=== PATIENT | female | born 1970 | race Caucasian/White ===

== ENCOUNTER → 2020-08-22 16:24 | Outpatient (CLI) | payer BC, SELFPAY ==
--- NOTE | ~2020-08-22 | XR_ITS ---
XR wrist LT min 3V 08/22/2020 17:24 Indication: Left wrist pain Procedure: 4 views left wrist Comparison: No prior studies for comparison. Findings: No fracture, subluxation or dislocation. No erosive changes. There is anatomic alignment. S caphoid intact. No focal soft tissue abnormality. No foreign bodies. Impression: 1: No significant bone or joint abnormality. Reviewed, dictated and finalized at location A. Impression: 1: No significant bone or joint abnormality.
== END ==
PROVIDERS: PCP Family Medicine; Visit Provider Family Medicine
DX: M25.352 Other instability, left hip (principal)
CPT/HCPCS: 73110

== ENCOUNTER 2021-03-25 10:33 | Outpatient (RCR) | payer BC, SELFPAY ==
[2021-03-25 12:31] VITALS: BP 124/78; PULSE 92; RESP 20; TEMP 35.9; O2SAT 98
[2021-03-25] MEDS: ACETAMINOPHEN 325 MG TABLET 650 MG PO (12:33)
[2021-03-25] MEDS: diphenhydrAMINE HCl CAP 25 MG CAPSULE PO (12:34)
[2021-03-25] MEDS: FAMOTIDINE 20 MG TABLET PO (12:34)
[2021-03-25 13:53] VITALS: BP 134/80; PULSE 82; O2SAT 98
== END 2021-03-25 15:26 ==
LOC: AMCINF 10:33
PROVIDERS: PCP Family Medicine; Visit Provider Internal Medicine Hematology & Oncology
DX: U07.1 COVID-19 (principal); I10 Essential (primary) hypertension
CPT/HCPCS: A9270; M0247; Q0247

== ENCOUNTER 2021-04-23 14:42 | Emergency (ER) | payer BC, SELFPAY ==
[2021-04-23 14:50] VITALS: BP 142/84; PULSE 98; RESP 16; TEMP 36.3; O2SAT 99
--- NOTE | 2021-04-23 14:59 | ED.URI ---
HPI - URI/Sore Throat General Chief Complaint: Upper Respiratory Infection Stated Complaint: uri Time Seen by Provider: 04/23/21 15:00 Source: patient Mode of arrival: ambulatory Limitations: no limitations History of Present Illness HPI Narrative: 51 yo F presents with c/o nasal congestion, sinus pressure, dry cough, PND, low grade temp for 3 days. Using Afrin. Takes Annalisa daily. No SOB/CP. Has had influenza exposure. All systems reviewed and negative except as noted above. Related Data Home Medications Medication Instructions Recorded Confirmed leflunomide 20 mg tablet 20 mg PO DAILY 01/26/19 03/25/21 upadacitinib 15 mg tablet,extended 15 mg PO DAILY 01/26/19 03/25/21 release 24 hr Allergies Allergy/AdvReac Type Severity Reaction Status Date / Time Corticosteroids Allergy Unknown redness/swe Verified 04/23/21 15:05 (Glucocorticoids) lling gabapentin Allergy Unknown upset Verified 04/23/21 15:05 stomach latex Allergy Unknown rash/swelli Verified 04/23/21 15:05 ng loratadine [From Claritin] Allergy Unknown unknown Verified 04/23/21 15:05 Review of Systems Review of Systems: CONSTITUTIONAL: Reports fever, chills, or sweats. EYES: Denies visual changes, redness, or discharge. ENT: Reports rhinorrhea, congestion, sore throat. Denies otalgia. CARDIOVASCULAR: Denies chest pain, palpitations, or edema. RESPIRATORY: Reports cough. Denies dyspnea. GASTROINTESTINAL: Denies abdominal pain, nausea, vomiting, or diarrhea. GENITOURINARY: Denies dysuria or hematuria. SKIN: Denies rash or itching. MUSCULOSKELETAL: Denies back pain, joint pain, or myalgia. NEUROLOGIC: Denies headache, numbness, or weakness. PSYCHIATRIC: Denies anxiety or depression. All other systems reviewed are negative, except as documented in HPI. [facility] Past Medical History Medical History Large breasts Obesity (BMI 35.0-39.9 without comorbidity) Surgical History Surgical History History of tubal ligation Family History Family History Grandparent Diabetes mellitus Hypertension Family history of elevated blood lipids Cerebrovascular accident Family history of renal failure Mother Depression Hypertension Family history of rheumatoid arthritis Father Hypertension Family history of elevated blood lipids Family history of malignant melanoma Social History Social History Alcohol intake: never Comments At time of signature, agree with nursing past medical, surgical, social and family history. There is no relevant family history pertinent to the presenting complaint. Exam Narrative: GENERAL: This is a well-nourished, well-developed patient, in no apparent distress. HEAD: normocephalic, atraumatic. EYES: PERRL. Sclera clear/white. Vision is grossly intact. EARS: External ears normal, auditory canals clear and without drainage, TMs normal without perforation. Hearing grossly intact. NOSE: External nose normal. Clear nasal drainage, mild congestion, erythema to bilateral naris. THROAT: Mucous membranes moist, erythema to posterior pharynx with postnasal drainage. NECK: Neck supple, non-tender without lymphadenopathy, masses or thyromegaly. CARDIOVASCULAR: Regular rate and rhythm without murmurs, gallops, or rubs. RESPIRATORY: Clear to auscultation. Breath sounds equal bilaterally. No wheezes, rales, or rhonchi. GASTROINTESTINAL: Abdomen soft, non-tender, nondistended. Bowel sounds are active. No hepato-splenomegaly, or palpable masses. No guarding. SKIN: warm, Dry, intact with no suspicious lesions or rash, good texture and turgor. NEURO: awake, alert, and oriented to person, place and time. There were no obvious focal neurologic abnormalities. EXTREMITIES: No joint tenderness, effusion, or e
== END 2021-04-23 15:20 | disposition home or self-care (01) ==
PROVIDERS: Emergency Provider Nurse Practitioner Family; PCP Family Medicine
DX: J06.9 Acute upper respiratory infection, unspecified (principal); E66.9 Obesity, unspecified; Z68.37 Body mass index [BMI] 37.0-37.9, adult
CPT/HCPCS: 87804; 99213; G0463

== ENCOUNTER 2022-03-03 11:18 | Outpatient (CLI) | payer BC, SELFPAY ==
[2022-03-03 20:31] LABS: Thyroid Stimulating Hormone 0.442 uIU/mL (0.465-4.680)
== END 2022-03-03 11:19 | disposition home or self-care (01) ==
LOC: ANHGOSHLAB 11:20
PROVIDERS: PCP Family Medicine; Visit Provider Family Medicine
DX: E03.9 Hypothyroidism, unspecified (principal); E78.00 Pure hypercholesterolemia, unspecified
CPT/HCPCS: 36415; 84443

== ENCOUNTER → 2022-04-14 12:19 | Outpatient (CLI) | payer BC, SELFPAY ==
--- NOTE | ~2022-04-14 | XR_ITS ---
EXAMINATION: XR chest 2V 04/14/2022 12:43 INDICATION: Chronic cough PROCEDURE: 2 view chest COMPARISON: 08/18/2007 FINDINGS: The lungs are clear. The cardiomediastinal silhouette is within normal limits. There are no pleural effusions. There is no pneumothorax suspected. IMPRESSION: 1: NO ACUTE CARDIOPULMONARY DISEASE. Reviewed, dictated and finalized at location B. [employer]
== END ==
PROVIDERS: PCP Family Medicine; Visit Provider Family Medicine
DX: R05.3 Chronic cough (principal)
CPT/HCPCS: 71046

== ENCOUNTER → 2022-06-11 16:18 | Outpatient (CLI) | payer BC, SELFPAY ==
--- NOTE | ~2022-06-11 | MM_ITS ---
EXAMINATION: MM screening gianna BI w marcos HISTORY: Screening mammogram TECHNIQUE: Craniocaudal and mediolateral oblique 3-D tomosynthesis images were obtained and synthetic 2-D images were generated. CAD analysis was submitted and interpreted. COMPARISON: 09/23/2018 bilateral screening mammogram examinations BREAST PARENCHYMAL COMPOSITION: There are scattered areas of fibroglandular density. FINDINGS: There is no evidence of suspicious mass, calcification, or architectural distortion to sugg est malignancy in either breast. There has been no suspicious interval change. IMPRESSION: 1. No mammographic evidence of malignancy. 2. Recommend routine screening mammography in one year. BI-RADS Category 1: Negative Reviewed, dictated and finalized at location A.
== END ==
PROVIDERS: PCP Family Medicine; Visit Provider Family Medicine
DX: Z12.31 Encounter for screening mammogram for malignant neoplasm of breast (principal)
CPT/HCPCS: 77063; 77067

== ENCOUNTER 2022-07-25 12:40 | Outpatient (CLI) | payer BC, SELFPAY ==
--- NOTE | 2022-07-25 14:48 | ECG_ITS ---
Measurements Intervals [place] Rate: 82 P: 36 [place]: 146 QRS: 21 QRSD: 104 T: 22 QT: 389 QTc: 455 Interpretive Statements SINUS RHYTHM LOW QRS VOLTAGE IN PRECORDIAL LEADS [QRS DEFLECTION < 1.0 mV IN CHEST LEADS] INCOMPLETE RIGHT BUNDLE BRANCH BLOCK [90+ ms QRS DURATION, TERMINAL R IN V1/V2, 40+ ms S IN I/aVL/V4/V5/V6] NO PREVIOUS ECG AVAILABLE FOR COMPARISON Electronically Signed On 07-26-2022 8:55:40 CDT by Antonette Adkins M.D.
== END 2022-07-25 12:41 | disposition home or self-care (01) ==
PROVIDERS: PCP Family Medicine; Visit Provider Surgery Plastic and Reconstructive Surgery
DX: E78.00 Pure hypercholesterolemia, unspecified (principal); I45.10 Unspecified right bundle-branch block
CPT/HCPCS: 93005

== ENCOUNTER 2022-07-29 00:13 | Day surgery (SDC) | payer BC, SELFPAY ==
[2022-07-25 10:12] VITALS: BMI 37.4
--- NOTE | 2022-07-25 10:24 | PC.NURSE ---
Report to the Outpatient Waiting Room, entrance under the green pavilion located off [facility], at time 9:30 on date 07/29/22. Planned Procedure Time: 11:30. Time changes happen often and if your time is changed the preop area will call you the afternoon before. - You and your visitor will be asked to self-screen and do not enter if you have any COVID symptoms. - A mask is optional within the hospital at this time. Patients may have clear liquids (water, carbonated beverages, clear teas, apple juice) until 3 hours prior to surgery with a maximum of 20 ounces. - No food from midnight until time of surgery Take the following medications with a SIP of water the morning of surgery: LEVOTHYROXINE, PAIN PILL IF NEEDED DO NOT STOP ANY OF YOUR OTHER PRESCRIPTION MEDICATIONS PRIOR TO SURGERY ?EXCEPT THE FOLLOWING Medications to discontinue per physician: VITAMINS/SUPPLEMENTS Date to take last dose: 07/25/22 Please no make-up, nail estonian, hairspray, perfume, deodorant, or body powder the day of surgery. No jewelry (including any body piercings) or valuables the day of surgery, leave them at home. Please take a shower or bath the night before, or the morning of, surgery with an antibacterial soap. Wear comfortable, loose fitting clothing. - Jewelry must be removed prior to entering the operating room. Rings and piercings that are not removed may be cut off. - The hospital will not accept responsibility for valuables. - Please leave all valuables, including medications, at home the day of surgery. If you are going home after surgery, a licensed straddle bug driver must drive you home. - NO public transportation without another adult if you receive anesthesia. - We recommend that an adult stay with you for 24 hours following discharge. - We also recommend that you do not drive, make important decision, drink alcoholic beverages, or take any drugs that were not prescribed by your health care provider for at least 24 hours after your discharge time. Follow any additional instructions given to you from your surgeon. If you or anyone in your household have experienced Covid symptoms in the past week, please notify your surgeon or the nurse liaison at the phone number below for possible testing. Telephone instructions given to PT - PAOLA ABDULLAHI and asked if any additional questions and then verbalized understanding. Patient advised to call surgeon office or pre surgery nurse liaison [phone] if any additional questions.
[2022-07-29] VITALS (10 sets, daily range): BP systolic 121–159; BP diastolic 80–104; PULSE 80–104; RESP 8–16; TEMP 36.5–36.9; O2SAT 92–99
--- NOTE | 2022-07-29 08:16 | WPDANESEPPF ---
Anes - Initial Pre Proc Eval Procedure: Operation Date: 07/29/22 11:30 Proposed Procedures p Bilateral Breast Reduction - Matty Lomas MD Date/Time: 07/29/22 08:16 Surgeon: Matty Lomas MD Pre Op Diagnosis: macromastia Patient Data Age: 52 Gender: F Height: 1.59 m Weight: 94.35 kg Allergies Allergy/AdvReac Type Severity Reaction Status Date / Time Corticosteroids Allergy Unknown redness/swe Verified 07/29/22 10:34 (Glucocorticoids) lling gabapentin Allergy Unknown upset Verified 07/29/22 10:34 stomach latex Allergy Unknown rash/swelli Verified 07/29/22 10:34 ng loratadine [From Claritin] Allergy Unknown unknown Verified 07/29/22 10:34 nickel Allergy Swelling Verified 07/29/22 10:34 Home Medications Medication Instructions Recorded Confirmed Type leflunomide 20 mg tablet 20 mg PO DAILY 01/26/19 07/25/22 History upadacitinib 15 mg tablet,extended 15 mg PO DAILY 01/26/19 07/25/22 History release 24 hr (Rinvoq) esomeprazole magnesium 40 mg See Rx Instructions .Route 08/29/21 07/25/22 Rx capsule,delayed release .COMPLEX #180 caps rosuvastatin 5 mg tablet See Rx Instructions .Route 01/02/22 07/25/22 Rx .COMPLEX #90 tabs alendronate 70 mg tablet 70 mg PO WEEKLY 03/03/22 07/25/22 History diclofenac sodium 75 mg See Rx Instructions .Route 03/20/22 07/25/22 Rx tablet,delayed release .COMPLEX #180 tabs hydrocodone 5 mg-acetaminophen 325 1 tablet PO Q4-6H PRN pain #40 tabs 06/11/22 07/25/22 Rx mg tablet hydrocodone 5 mg-acetaminophen 325 1 tablet PO Q4-6H PRN pain #40 tabs 06/11/22 07/25/22 Rx mg tablet hydrocodone 5 mg-acetaminophen 325 1 tablet PO Q6H PRN pain #40 tabs 06/11/22 07/25/22 Rx mg tablet levothyroxine 125 mcg tablet 125 mcg PO DAILY #90 tabs 07/15/22 07/25/22 Rx (Synthroid) Patient hx anesthesia problems: none Family hx anesthesia problems: none Results Review: All pre-operative results and documents have been reviewed as part of the pre-operative evaluation. [facility] Past Medical History Medical History (Updated 07/29/22 @ 08:17 by Hang Bueno DO) Chronic, continuous use of opioids Rochelle-Danlos disease Hypothyroidism (acquired) Large breasts Obesity (BMI 35.0-39.9 without comorbidity) Personal history of tobacco use Psoriasis Pure hypercholesterolemia Rheumatoid arthritis of multiple sites with negative rheumatoid factor Surgical History Surgical History (Updated 07/29/22 @ 08:17 by Hang Bueno DO) History of hysterectomy History of knee surgery 3x laparoscopic History of thyroidectomy History of tubal ligation Family History Family History Grandparent Diabetes mellitus Hypertension Family history of elevated blood lipids Cerebrovascular accident Family history of renal failure Mother Depression Hypertension Family history of rheumatoid arthritis Father Hypertension Family history of elevated blood lipids Family history of malignant melanoma Other History of tubal ligation Social History Social History (Updated 05/21/22 @ 08:15 by Trisha Peguero CMA) Social History: Caffeine- coffee daily Smoking packs per day: 1 Smoking cigarettes per day: 20.0 Years smoked: 23 Smoking pack-years: 23.00 Smoking status: Former smoker Tobacco type: cigarettes Smoking end date: 02/09/19 Alcohol intake: never Substance use: never Substance use type: does not use Lack of Transportation: No Lack of Food: Never True Current Housing: I Have Housing Concerned About Future Housing: No Difficulty Paying Gas/Electric Bills: No Difficulty Paying for Meds: No Currently Unemployed: No Education: Master's Degree or Higher Difficulty w/ Childcare or Family Care: No Living arrangements: with family Spiritual care concerns: No Anes - Eval Final PreProcedure Day of Procedure 07/29/22 08:16 P
[2022-07-29 10:17] LABS: Urine Cotinine NEGATIVE
[2022-07-29] MEDS: LACTATED RINGERS 1,000 ML 30 ML IV CONT ×2 (10:23→15:23)
[2022-07-29] MEDS: ACETAMINOPHEN 500 MG TABLET 1000 MG PO (10:24)
--- NOTE | 2022-07-29 11:54 | P.OP_ITS ---
Procedure Note - Detailed Date of Procedure 07/29/22 Pre-op Diagnosis macromastia Post-op Diagnosis Same Procedure Performed Bilateral reduction mammaplasty Surgeon Matty Lomas MD Anesthesia General Findings Inverted T Superior pedicle Tissue removed: Right - 850.8 grams Left - 814.5 grams Lipoaspirate: 350cc Description of Procedure She is here today for bilateral breast reduction. Previously and again today the risks, benefits, alternatives were discussed in extensive detail. I wanted her to be very realistic about the risks involved as well as expectations. She understands we can never guarantee final size. She understands she will still have lateral breast fullness. We discussed aftercare and what to monitor for. She understands we can never guarantee final breast size and there will always be asymmetry. I was very upfront and honest about the risks of sensation change and even nipple loss (). Made sure answered all of her questions to her satisfaction today and consent was obtained. She was marked in the preoperative holding area with their verification. The patient was taken to the operating room placed supine on the operating table. Anesthesia was provided by anesthesiology. She was prepped and draped in a standard sterile fashion. A surgical time-out was taken. Stab incisions were made and I tumessed with a tumescent solution. I marked out the nipple-areolar complex at 42 mm. I then de-epithelialized the pedicle. The pedicle was well left well more than 2 cm in thickness. I then removed the inferior portion of the breast as well as the central keel to get shape based on preoperative planning. At this point copiously irrigated with saline solution and verified a strict hemostasis. I reapproximated the pillars using a 2-0 PDS. I tailor tacked the breast into place with roberto. She was placed in a sitting position. I verified the nipple-areolar complex position based on preoperative markings, intraoperative measurements, and observation which were in full agreement. Suction lipectomy was completed laterally bilateral for counter based on S.A.F.E. technique utilizing a 4mm basket cannula. This was based on pre- operative planning and intraoperative evaluation. The nipple-areolar complex was marked at 42 mm in size. I then placed supine and de-epithelialized this. Nipple-areolar complex was inset with 3-0 Monocryl. I closed IMF deep with 1 strattafix. I closed the vertical incision with 3-0 Monocryl in the IMF with 3-0 stratafix. Then everything was closed using a running subcuticular 4-0 Monocryl followed by Steri-Strips. A dressing was placed followed by surgical bra. Patient was awoke and taken to PACU without difficulty. All instrument sponge counts were correct at the end of the case. Estimated Blood Loss 75 Drains No Packing No Pathology Yes (Bilateral breast tissue) Complications No immediate complications Condition Stable Disposition PACU
--- NOTE | 2022-07-29 11:54 | WPDHPUPDATE1 ---
History and Physical Update Update Date/Time: 07/29/22 11:54 History and Physical has been reviewed, including an updated exam of the patient. There are NO changes in the patient's condition. Risks, benefits, and alternatives have been discussed and questions answered. Patient agrees to proceed with procedure.
[2022-07-29] MEDS: TRANEXAMIC ACID 1,000MG/ISO100 1,000 MG/100 ML BAG 200 MG IVPB (12:30)
[2022-07-29] MEDS: ceFAZolin 2 GM/D5W 50 ML 2 GM/50 ML BAG IVPB (12:45)
[2022-07-29] MEDS: LACTATED RINGERS IRRIG 1,000 ML, LIDOCAINE HCL 1% LOCAL INJ 50 ML, EPINEPHrine HCL INJ ... INFILTRATE (13:24)
[2022-07-29] MEDS: fentaNYL CITRATE INJ (*CRX) 100 MCG/2 ML VIAL 25 MCG IV PUSH ×3 (15:42→17:15)
[2022-07-29] MEDS: oxyCODONE HCL (*CRX) 5 MG TAB IR PO (16:44)
--- NOTE | 2022-07-29 18:39 | SUR.PHASEII ---
1830 PT MEETS DISCHARGE CRITERIA AND IS WAITING FOR HER RIDE
== END 2022-07-29 18:41 | disposition home or self-care (01) ==
PROVIDERS: PCP Family Medicine; Visit Provider Surgery Plastic and Reconstructive Surgery
PROC: 0HBV0ZZ Excision of Bilateral Breast, Open Approach (ICD-10-PCS; CPT 19318; principal; 2022-07-29 11:30)
DX: N62 Hypertrophy of breast (principal); Q79.60 Ehlers-Danlos syndrome, unspecified; E03.9 Hypothyroidism, unspecified; E78.00 Pure hypercholesterolemia, unspecified; M06.09 Rheumatoid arthritis without rheumatoid factor, multiple sites; E66.9 Obesity, unspecified; Z68.37 Body mass index [BMI] 37.0-37.9, adult; Z87.891 Personal history of nicotine dependence; Z79.891 Long term (current) use of opiate analgesic
CPT/HCPCS: 19318; 80307; 88305; A9270; J0171; J0330; J0690; J1170; J2250; J2405; J2704; J3010; J7120

== ENCOUNTER 2023-05-14 14:54 | Outpatient (CLI) | payer BC, SELFPAY ==
[2023-05-14 19:18] LABS: Alanine Aminotransferase 27 U/L (6-35); Albumin Level 4.3 g/dL (3.5-5.1); Alkaline Phosphatase 71 U/L (38-126); Anion Gap 3 mmol/L (4-12); Aspartate Amino Transferase 45 U/L (14-36); Bilirubin,Total 0.6 mg/dL (0.2-1.3); Blood Urea Nitrogen 10 mg/dL (7-17); Carbon Dioxide 27 mmol/L (22-30); Chloride 108 mmol/L (98-107); Cholesterol 222 mg/dL (0-200); Estimated Glomerular Filt Rate > 60; Glucose 89 mg/dL (65-110); HDL Direct 82 mg/dL; Potassium 4.3 mmol/L (3.4-5.0); Sodium 138 mmol/L (137-145); Triglycerides 214 mg/dL (<150)
[2023-05-14 19:30] LABS: LDL Cholesterol Direct 106 mg/dL
[2023-05-14 19:54] LABS: Hemoglobin A1C 5.7 % (<5.7)
== END 2023-05-14 14:55 | disposition home or self-care (01) ==
LOC: ANHGOSHLAB 14:55
PROVIDERS: PCP Family Medicine; Visit Provider Family Medicine
DX: E03.9 Hypothyroidism, unspecified (principal); E78.5 Hyperlipidemia, unspecified
CPT/HCPCS: 36415; 80053; 80061; 83036; 84443

== ENCOUNTER 2024-05-25 11:33 | Outpatient (CLI) | payer OTHER, SELFPAY ==
--- OUTSIDE RECORDS SUMMARY | 2024-05-25 13:14 | XMS_ITS | Clinical Summary ---
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 Name Role Phone Lance Nielson MD Primary Care Provider [phone] Allergies Active Allergy Reactions Criticality Noted Date Comments Corticosteroids (Glucocorticoids) Agitation Low 11/24/2019 Cortisone Flushing (skin),Join t pain,Rash,Redness,Swe lling Medium 06/16/2009 Daptomycin Other (See comments) High 04/22/2024 Neutropenia (ANC 0) Latex Hives Medium 06/21/2012 Loratadine Palpitations Low Nickel Swelling Medium 08/02/2020 Medications rosuvastatin (CRESTOR) 5 mg tablet Take 1 tablet (5 mg total) by mouth nightly 0 08/17/19 19 Active calcium carb/vit D3/minerals (CALCIUM-VITAMI N D ORAL)Indication s:supplement Take 1 tablet/capsule by mouth nightly Active fexofenadine HCl (JUANY ORAL)Indication s:allergies Take 1 tablet/capsule by mouth nightly Active diclofenac DR (VOLTAREN) 75 mg EC tabletIndicatio ns:Rheumatoid Arthritis Take 1 tablet (75 mg total) by mouth 2 (two) times a day 08/21/[address] (NexIUM) 40 mg capsuleIndicati ons:Stress Ulcer Prophylaxis Take 40 mg by mouth 2 (two) times a day Active alendronate (FOSAMAX) 70 mg tabletIndicatio ns:Post-[place] darrian Osteoporosis Take 1 tablet (70 mg total) by mouth every 7 days Take in the morning with a full glass of water, on an empty stomach, and do not take anything else by mouth or lie down for the next 30 min. 03/07/19 25 Active Wegovy 0.25 mg/0.5 mL auto-injector 12/24/19 24 Active B.animalis,bifi d,infantis,long (PROBIOTIC 4X ORAL)Indication s:Pre/post- immune health Take 1 capsule by mouth every morning Active peg 400-propylene glycol (SYSTANE) 0.4-0.3 % ophthalmic solutionIndicat ions:Dry Eye Administer 2 drops into both eyes as needed (Dry eyes) Active oxymetazoline (AFRIN) 0.05 % nasal sprayIndication s:nasal congestion Administer 2 sprays into each nostril as needed for congestion Active traMADoL (ULTRAM) 50 mg tabletIndicatio ns:Pain,mild to moderate pain Take 1 tablet (50 mg total) by mouth every 6 (six) hours 42 tablet 03/28/19 25 Active Additional Information Patient not taking.Reported on 04/22/2024 pregabalin (LYRICA) 50 mg capsuleIndicati ons:Postherpeti c Neuralgia Take 1 capsule (50 mg total) by mouth 2 (two) times a day 60 capsule 03/28/19 25 Active aspirin 81 mg enteric coated tabletIndicatio ns:Deep Vein Thrombosis Prevention Take 1 tablet (81 mg total) by mouth 2 (two) times a day 60 tablet 11 04/02/19 25 2025 Active senna-docusate (PERICOLACE) 8.6-50 mgIndications:c onstipation Take 2 tablets by mouth 2 (two) times a day 30 tablet 04/02/19 25 Active cefepime (MAXIPIME) 2,000 mg/20 mL syringeIndicati ons:Bone/Joint Infection Infuse 2 g into a venous catheter 2 (two) times a day. 04/12/24: on hold until further notice per pharmD Indications: Bone/Joint Infection Active levothyroxine (SYNTHROID) 125 mcg tablet Take 1 tablet (125 mcg total) by mouth daily 04/17/19 25 Active cholestyramine (QUESTRAN) 4 gram packetIndicatio ns:High risk medication use Take 1 packet by mouth 2 (two) times a day for 3 days 6 packet 04/23/19 25 Active gabapentin (NEURONTIN) 100 mg capsuleIndicati ons:Neuropathic Pain Take 2 capsules (200 mg total) by mouth 2 (two) times a day 60 capsule 3 04/28/19 25 Active ciprofloxacin (CIPRO) 750 mg tabletIndicatio ns:Bone/Joint Infection Take 1 tablet (750 mg total) by mouth 2 (two) times a day for 20 days 40 tablet 05/06/19 25 2024 Active metroNIDAZOLE (FLAGYL) 375 mg capsuleIndicati ons:bone/joint infection Take 1 capsule (375 mg total) by mouth 2 (two) times a day for 20 days RX [id number] 40 capsule 05/06/19 25 2024 Active sulfamethoxazol e-trimethoprim (BACTRIM DS) 800-160 mg per tabletIndicatio ns:Infection of prosthetic joint, sequela Take 1 tablet by mouth every 12 (twelve) hours for 20 days 40 tablet 05/06/19 25 2024 Active amoxicillin-cla vulanate (AUGMENTIN) 875-125 mg per tablet Take 1 tablet by mouth every 12 (twelve) hours for 14 days 28 tablet 05/20/19 25 2024 Active HYDROcodone-nithin taminophen (NORCO) 5-325 mg per tabletIndicatio ns:Pain Take 2 tablets by mouth every 4 (four) hours as needed for pain (moderate to severe pain ) 30 tablet 05/24/19 25 Active methocarbamoL (ROBAXIN) 750 mg tabletIndicatio ns:Muscle Spasm [The details of the medication are not available because there are pending changes by a home health clinician.] 30 tablet 04/02/19 25 2024 Discontinued gabapentin (NEURONTIN) 100 mg capsuleIndicati ons:Neuropathic Pain [The details of the medication are not available because there are pending changes by a home health clinician.] 60 capsule 3 04/06/19 25 2024 Discontinued(R eorder) ciprofloxacin (CIPRO) 750 mg tabletIndicatio ns:Bone/Joint Infection Take 1 tablet (750 mg total) by mouth 2 (two) times a day for 14 days 28 tablet 04/12/19 25 2024 doxycycline (VIBRAMYCIN) 100 mg capsuleIndicati ons:Bone/Joint Infection Take 1 tablet/capsule (100 mg total) by mouth 2 (two) times a day for 14 days 28 tablet/caps ule 04/15/19 25 2024 Additional Information Patient not taking.Reported on 04/22/2024 metroNIDAZOLE (FLAGYL) 375 mg capsuleIndicati ons:bone/joint infection Take 1 capsule (375 mg total) by mouth 2 (two) times a day RX [id number] 04/19/19 25 2024 Discontinued(R eorder) sulfamethoxazol e-trimethoprim (BACTRIM DS) 800-160 mg per tablet Take 1 tablet by mouth every 12 (twelve) hours for 14 days 28 tablet 04/21/19 25 2024 Discontinued(R eorder) HYDROcodone-nithin taminophen (NORCO) 5-325 mg per tabletIndicatio ns:Pain Take 2 tablets by mouth every 4 (four) hours as needed for pain (moderate to severe pain ) 30 tablet 04/23/19 25 2024 Discontinued(R eorder) HYDROcodone-nithin taminophen (NORCO) 5-325 mg per tabletIndicatio ns:Pain Take 2 tablets by mouth every 4 (four) hours as needed for pain (moderate to severe pain ) 30 tablet 05/03/19 25 2024 Discontinued(R eorder) ciprofloxacin (CIPRO) 750 mg tabletIndicatio ns:Bone/Joint Infection Take 1 tablet (750 mg total) by mouth 2 (two) times a day 60 tablet 05/03/19 25 2024 Discontinued(R eorder) sulfamethoxazol e-trimethoprim (BACTRIM DS) 800-160 mg per tabletIndicatio ns:Infection of prosthetic joint, sequela Take 1 tablet by mouth every 12 (twelve) hours for 5 days 10 tablet 05/05/19 25 2024 Discontinued(R eorder) HYDROcodone-nithin taminophen (NORCO) 5-325 mg per tabletIndicatio ns:Pain Take 2 tablets by mouth every 4 (four) hours as needed for pain (moderate to severe pain ) 30 tablet 05/10/19 25 2024 Discontinued(R eorder) HYDROcodone-nithin taminophen (NORCO) 5-325 mg per tabletIndicatio ns:Pain Take 2 tablets by mouth every 4 (four) hours as needed for pain (moderate to severe pain ) 30 tablet 05/14/19 25 2024 Discontinued(R eorder) HYDROcodone-nithin taminophen (NORCO) 5-325 mg per tabletIndicatio ns:Pain Take 2 tablets by mouth every 4 (four) hours as needed for pain (moderate to severe pain ) 30 tablet 05/18/19 25 2024 Discontinued(R eorder) Active Problems Problem Noted Date Diagnosed Date Pain and swelling of right ankle 03/29/2024 Assessment & Plan (03/31/2024 4:47 PM REGISTRAR NURSES' REGISTRY): Ankle aspirate is inconclusive (1140 WBCs with 55% PMNs) and difficult to determine if infected due to recent prolonged antibiotic course. Crystals negative. Cultures remain NGTD. 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 Although intraoperatively the knee joint was not exposed, given close proximity surgical team could not rule out possible joint continuity. Operative tissue and seroma aspiration cultures positive for Pseudomonas aeruginosa, MSSA, and Finegoldia magna. She returned to the OR with Ortho Surgery on 02/04/24 for right knee I&D and liner exchange with flap elevation. OR tissue and synovial fluid cultures were taken which are positive for Staph capitus, Strep salivarius and Staph epidermidis. She was discharged with 6 weeks of iv daptomycin, cefepime and metronidazole. She completed 6 weeks, but unfortunately, the superior portion of the wound dehisced with drainage and was scheduled for total revision. She was placed on clindamycin for suppression while pending surgery. She was admitted 03/28/24 and underwent revision right TKA one stage procedure. She also c/o R ankle pain for last several months associated with swelling and tenderness. She underwent aspiration of R ankle in the OR- WBC was 1140 with 55% PMNs, RBCs were 800K. Cultures are ngtd and gram stain was negative for organisms. As per Ortho no concern for infection in ankle. As per surgeon the OR findings were notable for chronic infection and favored another round of IV antibiotics as new hardware was placed. OR cultures from knee were negative which could be related to recent antibiotic use. She was discharged on daptomycin, cefepime and metronidazole based on culture results from previous surgery. Due to likely drug-induced neutropenia, her Cefepime was dc'ed 04/12/24, followed by Daptomycin 04/15/24. She is clinically overall doing well at this time on PO antibiotic regimen. Suspect she will need longer term PO suppression due to high risk revision surgery, will discuss with Ortho surgery. - 04/16/24 labs reviewed. Repeat CBC w Diff today and trend weekly for count recovery. - continue metronidazole 375 mg PO BID for total 6 week course EOT 05/09/24. - continue ciprofloxacin 750 mg PO BID for total 6 week course EOT 05/09/24. - dc doxycyline today, start Bactrim DS 1 tab PO BID for additional ~2 weeks, EOT 05/09/24. - I discussed with the patient my impression, the imaging findings, and treatment plan in detail with a focus on the etiology, natural history, and management of symptoms. - I discussed with the patient the rationale for treatment, culture results, risk of recurrent infection, signs/symptoms of recurrent infection, and to contact ID clinic with any questions or concerns. Assessment & Plan (03/31/2024 4:46 PM REGISTRAR NURSES' REGISTRY): Ms. Allyson Abdullahi is a 54 y.o. female with a PMH of Rochelle-Danlos, seronegative RA (off Rinvoq since 12/18/2023), Raynaud's, HLD, and hypothyroidism who underwent right TKA remotely (12/27/12) followed by revision right TKA on 08/03/23 ([facility]) due to instability. She developed right knee and lower extremity swelling in 11/2023 attributed to capsular insufficiency in the distal aspect of the knee for which she underwent right medial gastrocnemius flap & STSG from the right thigh on 01/07/24 which was c/b infection and underwent OR I&D of the right leg on 02/01/24; per the operative note, significant fluid was encountered under the flap consistent w/ seroma and there was no gross purulence. Although intraoperatively the knee joint was not exposed, given close proximity surgical team could not rule out possible joint continuity. Operative tissue and seroma aspiration cultures positive for Pseudomonas aeruginosa, MSSA, and Finegoldia magna. She returned to the OR with Ortho Surgery on 02/04/24 for right knee I&D and liner exchange with flap elevation. OR tissue and synovial fluid cultures were taken which are positive for Staph capitus, Strep salivarius and Staph epidermidis. She was discharged with 6 weeks of iv daptomycin, cefepime and metronidazole. She completed 6 weeks, but unfortunately, the superior portion of the wound dehisced with drainage and was scheduled for total revision. She was placed on clindamycin for suppression while pending surgery. She was admitted 03/28/23 and underwent revision right TKA one stage procedure. She also c/o R ankle pain for last several months associated with swelling and tenderness. She underwent aspiration of R ankle in the OR- WBC was 1140 with 55% PMNs, RBCs were 800K. Cultures are ngtd and gram stain was negative for organisms. As per Ortho no concern for infection in ankle. As per surgeon the OR findings were notable for chronic infection and favored another round of IV antibiotics as new hardware was placed. OR cultures from knee were negative which could be related to recent antibiotic use. Recommending treating with daptomycin, cefepime, and metronidazole for 6 week duration (03/28/24-05/09/24) then suppressing for a period given retained hardware. Recommendations: Discontinue vancomycin and start daptomycin 8mg/kg (550mg) IV q24hr (done) Change cefepime frequency to 2gm IV q12hr (done) Start metronidazole 500mg PO BID (try crushing to see if patient tolerates it crushed) ID sent metronidazole prescription to her home pharmacy ([facility]). Please note- the outpatient prescription is 375mg PO BID because it is a capsule Monitor minimum weekly CBC w/ diff, CMP, and CK's ID is formally signing off but will continue to monitor patient peripherally while inpatient. Recommending treating with daptomycin, cefepime, and metronidazole for 6 week duration (03/28/24-05/09/24) then suppressing for a period given retained hardware. Please see sign off note from 03/31/24 for complete recommendations. Assessment & Plan (03/19/2024 2:20 PM REGISTRAR NURSES' REGISTRY): She underwent Right leg I&D on 02/01/24. Although intraoperatively the knee joint was not exposed, given close proximity surgical team could not rule out possible joint continuity. Operative tissue and seroma aspiration cultures grew Pseudomonas aeruginosa, MSSA, and Finegoldia magna. She returned to the OR with Ortho Surgery on 02/04/24 for right knee I&D and liner exchange with flap elevation. OR tissue and synovial fluid cultures + Staph capitus, Strep salivarius and Staph epidermidis. Patient has been on IV Daptomycin, IV Cefepime and PO metronidazole for total six weeks (02/04/24 -), unfortunately the superior portion of her previously healed incision has dehisced, concerning for antibiotic failure. Ortho surgery is recommending explantation with insertion of an articulating vs static antibiotic spacer (not yet scheduled). - will extend current antibiotic regimen for additional week pending discussion with Ortho surgery regarding surgery date. If surgery will not be for a couple weeks, will plan to transition to PO regimen in the interim. Continue Daptomycin 550 mg IV Q 24, Cefepime 2 g IV Q12, Metronidazole 500 mg PO BID with EOT 03/24/24. On 03/25/24, transition to PO Clindamycin for chronic PO suppression given retained hardware (liner). - 03/14/24 labs reviewed. - continue to hold RA medications rinvoq and leflunomide for now pending further surgery. - weekly CBC w Diff, CMP, CK while on IV antibiotics. - I discussed with the patient my impression, the imaging findings, and treatment plan in detail with a focus on the etiology, natural history, and management of symptoms. - I discussed with the patient the rationale for treatment, culture results, risk of recurrent infection, signs/symptoms of recurrent infection, and to contact ID clinic with any questions or concerns. Infection of joint 02/03/2024 Assessment & Plan (02/26/2024 7:50 PM REGISTRAR NURSES' REGISTRY): She underwent Right leg I&D on 02/01/24. Although intraoperatively the knee joint was not exposed, given close proximity surgical team could not rule out possible joint continuity. Operative tissue and seroma aspiration cultures grew Pseudomonas aeruginosa, MSSA, and Finegoldia magna. She returned to the OR with Ortho Surgery on 02/04/24 for right knee I&D and liner exchange with flap elevation. OR tissue and synovial fluid cultures + Staph capitus, Strep salivarius and Staph epidermidis. Patient is clinically doing well at this time. - Continue total six week course Daptomycin 550 mg IV Q 24; Cefepime 2 g IV Q12; Metronidazole 500 mg PO BID, with EOT 03/17/24. - Thereafter (or before if PICC line fails and patient remains clinically stable), will transition to PO regimen for chronic suppression given retained hardware (liner). Consider Doxycycline 100 mg PO BID for Staph epi/capitis and Levofloxacin 500 mg PO daily for Strep salivarius or monotherapy with Clindamycin if tolerated. Since Strep is intermediate to PCN, reached out to [facility] to see if oral 3rd gen cephalosporin an option, awaiting recommendations as no breakpoints for cefazolin or oral cephalosporins. - ECG 02/05/24 Qtc 472. Repeat ECG today. - 02/23/24 labs reviewed. - continue to hold RA medications rinvoq and leflunomide until initial 6 weeks of treatment is completed. - weekly CBC w Diff, CMP, CK while on IV antibiotics. - I discussed with the patient my impression, the imaging findings, and treatment plan in detail with a focus on the etiology, natural history, and management of symptoms. - I discussed with the patient the rationale for treatment, culture results, risk of recurrent infection, signs/symptoms of recurrent infection, and to contact ID clinic with any questions or concerns. Postoperative infection, uns pecified type, initial encounter 02/01/2024 Assessment & Plan (02/08/2024 12:15 PM REGISTRAR NURSES' REGISTRY): Allyson Abdullahi is a 54 y.o. female with a history of Rochelle-Danlos, seronegative RA (off Rinvoq since 12/18/2023), Raynaud's, HLD, and hypothyroidism who underwent right TKA on 12/27/2012 followed by revision right TKA on 08/03/2023 due to instability. She developed right knee and lower extremity swelling in 11/2023 attributed to capsular insufficiency in the distal aspect of the knee. To address this, she underwent right medial gastrocnemius flap & STSG from the right thigh on 01/07/2024; operative cultures were no growth. Per notes, she had been doing well up until 01/30/2024 when she reported yellow drainage from her flap surgical incision. She was started on PO TMP-SMX but had increased erythema and new purulent drainage from the surgical incision prompting presentation to the [facility] ED on 01/31/2024. She denied any associated fever (however, she is on scheduled diclofenac), chills, or malaise. A CT demonstrated extensive soft tissue edema of the right lower leg w/ a loculated simple fluid collection deep to the rectus femoris and gastrocnemius flap reconstruction consistent w/ seroma. She was evaluated by orthopedic surgery and admitted to the hospital. She underwent OR I&D of the right leg on 02/01/2024; per the operative note, significant fluid was encountered under the flap consistent w/ seroma and there was no gross purulence. Although intraoperatively the knee joint was not exposed, given close proximity surgical team could not rule out possible joint continuity. Operative tissue and seroma aspiration cultures positive for Pseudomonas aeruginosa, MSSA, and Finegoldia magna. She returned to the OR with Ortho Surgery on 02/03 for right knee I&D and liner exchange with flap elevation. OR tissue and synovial fluid cultures were taken which are positive for Staph capitus, Strep salivarius and Staph epidermidis. Recommending treating as knee PJI with 6 weeks (02/04/24-03/17/24) of daptomycin, cefepime, and metronidazole. She will need suppression afterwards given retained hardware (liner exchange). At this time we do not yet have the Strep susceptibles so cannot give a suppression recommendation. (TBD at ID follow up). 12/20 Qtc: 472 Recommendations: - Start daptomycin 8mg/kg (550mg) IV q24hr. Check baseline CK. (Ordered) - Continue cefepime 2gm q8hr while inpatient. When ready for discharge, change to q12hr frequency. - Continue metronidazole 500mg PO BID - Monitor minimum weekly CBC w/ diff, CMP, and twice weekly CPK's - ID is formally signing off but will continue to monitor peripherally while inpatient. Please see sign off note from 02/07 for complete recommendations. Status post flap graft 02/01/2024 Open knee wound, right, initial encounter 2023 Swelling of right knee joint 12/23/2023 Peripheral retinal thinning 09/09/2023 Overview (09/09/2023): OCT completed on 09/08 demonstrated minimal thinning inferior to the macula OS Assessment & Plan (09/09/2023 1:28 PM CDT): Patient denies any vision changes or deficits. Set to start Plaquenil 200mg this wk for RA (monitored by Dr. Lambert). Had a long discussion with the patient about the current state of her retina and the possible risks of taking Plaquenil. We discussed that, fortunately, she is asymptomatic from the perifoveal thinning, however this also puts her at higher risk of hydroxychloroquine retinopathy as this perifoveal tissue is precisely the tissue that is at risk with this drug. 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 If she decides to start Plaquenil for systemic reasons we recommend close follow-up in the Retina Clinic in approximately 3 months. However, if the patient decides not to proceed with starting Plaquenil, she may follow with her yearly appointments with Dr. Pablo. Nuclear sclerosis of both eyes 09/08/2023 Assessment & Plan (09/08/2023 3:56 PM CDT): Minimal changes noted and discussed, NVS. 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 There is area in left eye adjacent to fovea with dropout between inner/outer retinal layers. No other concerning changes noted. Will monitor, pt preferred in office visit to evaluate with retina and will schedule. Will likely be approved to start Plaquenil Surgical follow-up care 02/03/2013 Loose body of knee 10/19/2012 Effusion of knee 10/19/2012 Osteoarthritis 09/22/2012 Sprain of anterior cruciate ligament of knee Sprain of medial collateral ligament of knee Knee pain 05/17/2012 Low back pain 04/15/2010 Encounters Date Type Department Care Team Description 05/19/2024 Telephone [facility] Infectious Diseases [address] [place] [address] [place] [phone] Corbin Duque Jr., RN 05/19/2024 Orders Only [facility] Infectious Diseases [address] [place] [address] [address] [place] [address] Gato Chatterjee MD 04/27/2024 Orders Only [facility] Orthopaedic Surgery [address] [place] [address] [address] [place] [id number] Efrain Iglesias MD 04/27/2024 Orders Only [facility] Orthopaedic Surgery [address] [place] [address] Office [facility] [address] [place] [address] Efrain Iglesias MD 04/26/2024 9:16 AM CDT - 04/26/2024 11:59 PM CDT Hospital Encounter [facility] [address] [place], [place] [id number] Discharge Disposition: Discharge to home or self care 04/26/2024 9:00 AM CDT Home Care Visit [address] [place] [address] Kyleigh Muse RN SN NON OASIS DISCHARGE 04/25/2024 Home Care Visit [address] [place] [address] Maris Lincoln RN CASE COMMUNICATION 04/25/2024 Orders Only [facility] Orthopaedic Surgery [address] [facility] Office Building [address] [place] [id number] Efrain Iglesias MD Right knee pain, unspecified chronicity (Primary Dx); History of total right knee replacement 04/25/2024 Telephone [facility] Infectious Diseases [address] [place] [phone] Imani Wood CMA 04/22/2024 10:45 AM REGISTRAR NURSES' REGISTRY Office Visit [facility] Orthopaedic Surgery [address] [facility] 6th [place] [address] [place] [phone] Efrain Iglesias MD 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, subsequent encounter (Primary Dx) 04/22/2024 9:30 AM REGISTRAR NURSES' REGISTRY Office Visit [facility] Rheumatology [address] [facility] 5[address] [place] [address] [place] [phone] Lance Lambert MD PhD Rheumatoid arthritis of multiple sites with negative rheumatoid factor (HCC) (Primary Dx); High risk medication use 04/22/2024 Telephone [facility] [address] [place] [address] [address] [place] [address] Corbin Duque Jr., RN 04/22/2024 Orders Only [facility] [address] [place] [phone] PyPam stokes NP Infection of prosthetic joint, sequela (Primary Dx) 04/21/2024 Results Follow-Up [facility] [address] [facility] [address] [place] [address] Pam Negrete NP 04/20/2024 5:22 PM REGISTRAR NURSES' REGISTRY - 04/20/2024 11:59 PM REGISTRAR NURSES' REGISTRY Hospital Encounter [facility] [address] [place] [address] Infection of prosthetic joint, sequela Discharge Disposition: Discharge to home or self care 04/20/2024 3:20 PM REGISTRAR NURSES' REGISTRY Office Visit [facility] [address] [place] [phone] Pam Negrete NP Infection of prosthetic joint, sequela (Primary Dx); Infection of prosthetic knee joint, sequela 04/20/2024 Telephone [facility] [address] [place] [phone] Corbin Duque Jr., RN 04/18/2024 11:33 AM REGISTRAR NURSES' REGISTRY - 04/18/2024 11:59 PM REGISTRAR NURSES' REGISTRY Hospital Encounter [facility] [address] [place] [address] Discharge Disposition: Discharge to home or self care 04/18/2024 10:00 AM REGISTRAR NURSES' REGISTRY Home Care Visit [facility] [address] [address] [address] [place] [address] Maris Lincoln RN SN HOME VISIT 04/18/2024 Orders Only [facility] Home Care Services [address] [facility] [address] [place] [address] Braden Agee peyton 04/18/2024 Documentation [facility] [address] [place] [address] [address] [place] [address] Corbin Duque Jr., RN 04/18/2024 Documentation [facility] [address] [place] [address] [address] [place] [address] Corbin Duque Jr., RN 04/15/2024 11:36 AM REGISTRAR NURSES' REGISTRY - 04/15/2024 11:59 PM REGISTRAR NURSES' REGISTRY Hospital Encounter [facility] [address] [place] [address] Discharge Disposition: Discharge to home or self care 04/15/2024 10:00 AM REGISTRAR NURSES' REGISTRY Home Care Visit [address] [place] [address] Maris Lincoln, ARBEN SN NON OASIS RECERTIFICATION 04/15/2024 Plan of Care Documentation [address] [place] [address] 04/15/2024 Home Care Visit [address] [place] [address] Brenda Polo RN SN TRIAGE ENCOUNTER 04/15/2024 Documentation [facility] [address] [place] [phone] Gato Chatterjee MD 04/15/2024 Orders Only [facility] [address] [place] [phone] Gato Chatterjee MD Infection of prosthetic knee joint, subsequent encounter (Primary Dx) 04/15/2024 Telephone [facility] [address] [place] [address] [address] [place] [address] Lissa Olivo CMA 04/12/2024 Orders Only [facility] Home Care Services [address] [place] [address] [place] [phone] Braden Agee [facility] 04/12/2024 Orders Only [facility] [address] [place] [phone] Gato Chatterjee MD 04/11/2024 2:06 PM REGISTRAR NURSES' REGISTRY - 04/11/2024 11:59 PM REGISTRAR NURSES' REGISTRY Hospital Encounter [address] [address] Discharge Disposition: Discharge to home or self care 04/11/2024 1:00 PM REGISTRAR NURSES' REGISTRY Home Care Visit [address] [place] [address] Kyleigh Muse RN SN HOME VISIT 04/11/2024 Telephone [facility] [address] [facility] [address] [place] [address] Patrice Rodriguez MD 04/11/2024 Home Care Visit [address] [place] [address] Adrienne Alberto RN SN TRIAGE ENCOUNTER 04/11/2024 Documentation [facility] [address] [facility] [address] [place] [address] Corbin Duque Jr., RN 04/08/2024 9:30 AM REGISTRAR NURSES' REGISTRY Office Visit [facility] Orth[facility] Surgery [facility] [facility] 6th [place] [phone] Efrain Iglesias MD 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, subsequent encounter (Primary Dx) 04/07/2024 2:00 PM REGISTRAR NURSES' REGISTRY - 04/07/2024 11:59 PM REGISTRAR NURSES' REGISTRY Hospital Encounter [facility] [address] [place], [place] [phone] Discharge Disposition: Discharge to home or self care 04/07/2024 12:00 PM REGISTRAR NURSES' REGISTRY Home Care Visit [address] [place] [address] Maris Lincoln RN SN HOME VISIT 04/05/2024 11:00 AM REGISTRAR NURSES' REGISTRY Home Care Visit [address] [place] [address] Rosi Rios RN SN OASIS RESUMPTION OF CARE 04/05/2024 Orders Only [facility] Home Care Services [address] [facility] [address] [place] [phone] Braden Agee [facility] 04/05/2024 Orders Only [facility] Home Care Services [address] [place] [address] [place] [phone] Braden Agee, [facility] 04/05/2024 Plan of Care Documentation [address] [place] [address] 04/04/2024 Telephone [facility] [address] [facility] [address] [place] [phone] Evelina Hernandez LCSW 04/04/2024 Home Care Visit [address] [place] [address] So Ortiz, RN TELEPHONE ENCOUNTER 04/04/2024 Documentation [facility] [address] [place] [address] [address] [place] [address] Corbin Duque Jr., ARBEN 04/04/2024 Home Care Visit [address] [place] [address] Evelina Harrington, ARBEN SN TRIAGE ENCOUNTER 04/04/2024 Telephone [facility] Scheduling [address] [place] [address] Resource, Homecare Scheduling 04/03/2024 Home Care Visit [address] [place] [address] Estrellita Luis, ARBEN SN TRIAGE ENCOUNTER 04/03/2024 Home Care Visit [address] [place] [address] Deborah Lozano, ARBEN TELEPHONE ENCOUNTER 04/02/2024 Orders Only [facility] Home Care Services [address] [place] [address] [address] [place] [phone] Mechelle Sellers, [facility] 03/31/2024 Orders Only [facility] [address] [facility] [address] [place] [address] Anne Lundberg, [facility] 03/31/2024 Documentation [facility] [address] [facility] [address] [place] [address] Gato Chatterjee MD 03/30/2024 Orders Only [facility] [address] [facility] [address] [place] [address] Pam Negrete, [facility] 03/29/2024 Home Care Visit [address] [address] [address] [place] [address] Maris Lincoln, RN SN NON OASIS TRANSFER 03/28/2024 12:05 PM REGISTRAR NURSES' REGISTRY - 03/28/2024 4:05 PM REGISTRAR NURSES' REGISTRY Surgery [facility] Operating Room [address] [place] [address] Efrain Iglesias MD REVISION RIGHT TOTAL KNEE ARTHROPLASTY 03/28/2024 11:01 AM REGISTRAR NURSES' REGISTRY Anesthesia Event [facility] Operating Room [address] [place] [phone] Octavio Olguin MD Thomas, Karen D., EXTRUSION MANAGER 03/28/2024 8:40 AM REGISTRAR NURSES' REGISTRY - 04/02/2024 12:50 PM REGISTRAR NURSES' REGISTRY Hospital Encounter [address] [address] Efrain Iglesias MD 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, subsequent encounter (Primary Dx); Pain and swelling of right ankle; Postoperative infection, unspecified type, initial encounter; Infection of prosthetic knee joint, initial encounter Discharge Disposition: Discharge to home, home health skilled care 03/28/2024 Home Care Visit [address] [address] [address] [place] [address] Shelly Schneider, PT PT NON OASIS TRANSFER 03/27/2024 Home Care Visit [address] [place] [address] Garima Epstein RN SN TRIAGE ENCOUNTER 03/25/2024 9:00 AM REGISTRAR NURSES' REGISTRY Home Care Visit [address] [address] [address] [place] [address] Maris Lincoln, ARBEN SN HOME VISIT 03/24/2024 Telephone [facility] [address] [place] [phone] Imani Wood, [employer] 03/24/2024 Documentation [facility] [address] [place] [phone] Virginia Dai, RN OPAT stop (OPAT stop 03/24/24 patient transitioned to orals) 03/23/2024 8:00 AM REGISTRAR NURSES' REGISTRY Pre-Admission Testing [facility] for Preoperative Assessment and Planning [facility] ([facility]) [address] [place] [phone] Preoperative testing (Primary Dx); 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, subsequent encounter; Acute pain of right knee 03/21/2024 9:53 AM REGISTRAR NURSES' REGISTRY - 03/21/2024 11:59 PM REGISTRAR NURSES' REGISTRY Hospital Encounter [address] [address] Discharge Disposition: Discharge to home or self care 03/21/2024 8:00 AM REGISTRAR NURSES' REGISTRY Home Care Visit [address] [place] [address] Maris Lincoln RN SN HOME VISIT 03/18/2024 4:30 PM REGISTRAR NURSES' REGISTRY Home Care Visit [address] [place] [address] Shelly Schneider, PT PT HOME VISIT 03/18/2024 Documentation [facility] [address] [place] [phone] Virginia Dai, RN OPAT 03/18/2024 Orders Only [facility] Home Care Services [address] [place] [address] [place] [phone] Bradne Agee [facility] 03/17/2024 12:40 PM REGISTRAR NURSES' REGISTRY Office Visit [facility] [address] [place] [phone] Pam Negrete, [facility] Infection of prosthetic knee joint, subsequent encounter (Primary Dx); Rochelle-Danlos syndrome; Rheumatoid arthritis of multiple sites with negative rheumatoid factor (HCC) 03/17/2024 9:43 AM REGISTRAR NURSES' REGISTRY - 03/17/2024 11:59 PM REGISTRAR NURSES' REGISTRY Hospital Encounter [facility] [address] [place] [address] Discharge Disposition: Discharge to home or self care 03/17/2024 8:00 AM REGISTRAR NURSES' REGISTRY Home Care Visit [address] [place] [address] Maris Lincoln, RN SN HOME VISIT 03/17/2024 Orders Only [facility] Home Care Services [address] [facility] [address] [place] [phone] Braden Agee [facility] 03/17/2024 Telephone [facility] [address] [place] [address] Office [facility] [address] [place] [phone] Efrain Iglesias MD 03/15/2024 11:45 AM REGISTRAR NURSES' REGISTRY Office Visit [facility] [address] [place] [address] Office [facility] [address] [place] [address] Efrain Iglesias MD History of total right knee replacement (Primary Dx) 03/15/2024 Documentation [facility] [address] [facility] [address] [place] [phone] Virginia Dai, ARBEN Opat Progress/Monitoring (Labs 03/14/24 Reviewed) 03/14/2024 4:00 PM REGISTRAR NURSES' REGISTRY Home Care Visit [address] [address] [address] [place] [address] Shelly Schneider, PT PT HOME VISIT 03/14/2024 9:41 AM REGISTRAR NURSES' REGISTRY - 03/14/2024 11:59 PM REGISTRAR NURSES' REGISTRY Hospital Encounter [facility] [address] [place] [address] Discharge Disposition: Discharge to home or self care 03/14/2024 9:00 AM REGISTRAR NURSES' REGISTRY Home Care Visit [address] [place] [address] Maris Lincoln, ARBEN SN HOME VISIT 03/12/2024 10:00 AM REGISTRAR NURSES' REGISTRY Home Care Visit [address] [place] [address] Jami Porras, ARBEN SN HOME VISIT 03/12/2024 Home Care Visit [address] [place] [address] Garima Epstein RN SN TRIAGE ENCOUNTER 03/11/2024 Home Care Visit [address] [place] [address] Evelina Harrington RN SN TRIAGE ENCOUNTER 03/11/2024 Documentation [facility] [address] [place] [address] [address] [place] [address] Virginia Dai RN Opat Progress/Monitoring (03/07/24 Labs reviewed) 03/10/2024 9:48 AM REGISTRAR NURSES' REGISTRY - 03/10/2024 11:59 PM REGISTRAR NURSES' REGISTRY Hospital Encounter [facility] [address] [place] [address] Discharge Disposition: Discharge to home or self care 03/10/2024 9:00 AM REGISTRAR NURSES' REGISTRY Home Care Visit [address] [place] [address] Maris Lincoln RN SN HOME VISIT 03/09/2024 6:20 PM REGISTRAR NURSES' REGISTRY Lab [facility] [address] [place] [phone] Infection of prosthetic knee joint, sequela 03/09/2024 1:40 PM REGISTRAR NURSES' REGISTRY Office Visit [facility] [address] [facility] 2nd Floor [address] [place] [address] Lexx Carbone MD History of total right knee replacement (Primary Dx) 03/08/2024 Orders Only [facility] Home Care Services [address] [facility] [address] [place] [phone] Braden Agee peyton 03/08/2024 Telephone [facility] [address] [phone] Imani Wood, [facility] 03/07/2024 10:36 AM REGISTRAR NURSES' REGISTRY - 03/07/2024 11:59 PM REGISTRAR NURSES' REGISTRY Hospital Encounter [address] [address] Discharge Disposition: Discharge to home or self care 03/07/2024 9:00 AM REGISTRAR NURSES' REGISTRY Home Care Visit [address] [place] [address] Maris Lincoln, ARBEN SN HOME VISIT 03/03/2024 10:22 AM REGISTRAR NURSES' REGISTRY - 03/03/2024 11:59 PM REGISTRAR NURSES' REGISTRY Hospital Encounter [address] [address] Discharge Disposition: Discharge to home or self care 03/03/2024 9:30 AM REGISTRAR NURSES' REGISTRY Home Care Visit [address] [place] [address] Maris Lincoln, ARBEN SN HOME VISIT 03/01/2024 Documentation [facility] [address] [place] [phone] Virginia Dai, ARBEN Opat Progress/Monitoring (Labs 02/29/24 reviewed) 02/29/2024 10:08 AM REGISTRAR NURSES' REGISTRY - 02/29/2024 11:59 PM REGISTRAR NURSES' REGISTRY Hospital Encounter [address] [address] Discharge Disposition: Discharge to home or self care 02/29/2024 9:00 AM REGISTRAR NURSES' REGISTRY Home Care Visit [address] [place] [address] Maris Lincoln, ARBEN SN HOME VISIT 02/26/2024 3:00 PM REGISTRAR NURSES' REGISTRY Home Care Visit [address] [place] [address] Shelly Schneider, PT PT INITIAL EVALUATION 02/26/2024 12:00 PM REGISTRAR NURSES' REGISTRY - 02/26/2024 11:59 PM REGISTRAR NURSES' REGISTRY Hospital Encounter [facility] [address] [place] [address] Discharge Disposition: Discharge to home or self care 02/26/2024 11:00 AM REGISTRAR NURSES' REGISTRY Home Care Visit [address] [place] [address] Maris Lincoln, ARBEN SN HOME VISIT 02/26/2024 Home Care Visit [place] [phone] [facility] [address] [place] [address] Maris Lincoln, ARBEN CASE COMMUNICATION 02/25/2024 12:40 PM REGISTRAR NURSES' REGISTRY Office Visit [facility] [address] [place] [phone] Pam Negrete NP Infection of prosthetic knee joint, sequela (Primary Dx); Infection of joint (HCC) 02/25/2024 Documentation [facility] [address] [place] [phone] Virginia Dai, ARBEN Opat Progress/Monitoring (Labs 02/22 Reviewed SEEN 02/25/2024, continue IV) 02/25/2024 Telephone [facility] [address] [place] [phone] Virginia Dai, ARBEN OPAT from Last 3 Months Immunizations Immunization Administration Dates Next Due Influenza, Quadrivalent, Spl it, Preservative Free, Intramuscular 12/04/2017 Influenza, Trivalent, Preservative Free, Intramu scular 11/24/2019,12/01/2018 Influenza, Unspecified 11/17/2023 Moderna SARS-CoV-2 Monovalent Vaccination (12+ Y RS) 04/06/2020,03/09/2020 Pfizer Sars-Cov-2 Bivalent Vaccination (12+ YRS) 12/06/2021 Surgical History Surgery Date Site/Laterality Comments HYSTERECTOMY 02/16/1998 - 02/15/1999 REPLACEMENT TOTAL KNEE 02/17/2012 - 02/15/2013 Right BUNIONECTOMY 02/16/2001 - 02/15/2002 Right TUBAL LIGATION 02/16/1993 - 02/15/1994 KNEE ARTHROSCOPY Right X2 FOOT FUSION 12/08/2019 Left Left second tarsometatarsal arthrodesis; Left third tarsometatarsal arthrodesis ; Left distal tibial bone graft harvest FOOT SURGERY 08/02/2020 Left Left Foot Removal of hardware and ganglion cyst excision KNEE SURGERY 08/03/2023 Right arthroplasty revision COLONOSCOPY Medical History Medical History Date Comments Joint pain Thyroid disease hypothyroidism Rheumatoid arthritis of mult iple sites with negative rheumatoid factor (HCC) Hypercholesteremia Rochelle-Danlos disease Allergic rhinitis GERD (gastroesophageal reflux disease) fair-well controlled Family History Medical History Relation Name Comments Hypertension Father Cancer Maternal Grandfather Rheum arthritis Maternal Grandfather Fami ly history of rheumatoid arthritis - Relation: Grandfather (Added by TW Conv) Diabetes Maternal Grandmother Hypertension Maternal Grandmother Anesthesia problems Mother PONV Macular degeneration Mother Relation Name Status Comments Father Maternal Grandfather Maternal Grandmother Mother Social History Tobacco Use Types Packs/Day Years Used Date Smoking Tobacco: Former Cigarettes 1 33 1 2018 Smokeless Tobacco: Never Tobacco Cessation:Counseling Given: Not Answered Alcohol Use Standard Drinks/Week Comments Never 0 (1 standard drink = 0.6 oz pur e alcohol) OASIS D0700: Social Isolation Answer Da te Recorded Frequency of experiencing loneliness or isolatio n Never 04/15/2024 OASIS A1250: Transportation Answer Date Recorded Lack of Transportation (Medical) No 04/05/2024 Lack of Transportation (Non-Medical) No 04/05/2024 Patient Unable or Declines to Respond No 04/05/2024 OASIS B1300: Health Literacy Answer Gianni e Recorded Frequency of needing help to read materials from doctor or pharmacy Never 04/05/2024 AUDIT-C Answer Date Recorded Q1: How often do you have a drink containing alcohol? Never 03/23/2024 Q2: How many drinks containi ng alcohol do you have on a typical day when you are drinking? Patient does not drink Q3: How often do you have si x or more drinks on one occasion? Never 03/23/2024 Personal Safety Answer Date Recorded Have you ever been in or are you currently in a harmful physical or emotional relationship or is someone making you feel afraid or unsafe? 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 Not on file Not on file Obstetrics History Last Filed Vital Signs Vital Sign Reading Time Taken Comments Blood Pressure 132/86 04/26/2024 8:59 AM CDT Pulse 84 04/26/2024 8:59 AM CDT Temperature 37.3 C (99.1 F) 04/26/2024 8:59 AM CDT Respiratory Rate 20 04/26/2024 8:59 AM CDT Oxygen Saturation 98% 04/26/2024 8:59 AM CDT Inhaled Oxygen Concentration - - Weight 97.1 kg (214 lb) 04/22/2024 9:46 AM REGISTRAR NURSES' REGISTRY Height 158.8 cm (5' 2.52 ) 04/22/2024 9:46 AM CS T Body Mass Index 38.49 04/22/2024 9:46 AM REGISTRAR NURSES' REGISTRY Plan of Treatment Health Maintenance Due Date Last Done Comments Breast Cancer Screening-Mammogram 1970 Colon Cancer Screening-Colonoscopy 1970 Depression Screening 1970 DTaP/Tdap/Td Vaccine (1 - Tdap) 1981 Hepatitis B Screening 01/04/1988 Regular Well Visit/Exam 18-64 01/04/1988 Lung Cancer Screening 01/04/2020 Zoster Vaccine (1 of 2) 01/04/2020 Covid-19 Vaccine ( season) 2023 12/06/2021, 04/06/2020, 03/09/2020 Hepatitis C Screening Completed 05/18/2020 , 05/18/2020, 03/27/2017 Influenza Vaccine Completed 11/17/2023, , 12/01/2018, Additional history exists Pneumococcal vaccine <65 Aged Out No longer eligible based on patient's age to complete this topic Medical Devices Implanted Type Area Medical Assisting Program Director Device Identifier Shelf Expiration Date Model / Serial / Lot [employer]/Ort ho Zeny Ii 13mm Constrain Knee 3-4 Insert Articular Uhmwpe [id number] - S0 - [id number] Implanted:Qty: 1 on 08/03/2023 by Efrain Iglesias MD at [facility] Other - see comments [employer]/ Ortho [id number] 03/22/2026 [id number] / 0 / [id number] [employer] [id number] Screw Bone L26mm Od3.5mm Foot Ankle Cannulated Color Coded Osteotomy - S0 - [id number] Implanted:Qty: 1 on 12/08/2019 by Og Garcia MD at [facility] Screw Left: Foot [employer] [id number] / 0 / [employer] [id number] Screw Bone Medline Unite L24mm Od3.5mm Head Nonsterile - S0 - [id number] Implanted:Qty: 1 on 12/08/2019 by Og Garcia MD at [facility] Screw Left: Foot [employer] [id number] / 0 / [employer] 7115-1818kt Dynaforce [id number] Superelastic Staple Bone Nitinol Sterile - [id number] Implanted:Qty: 1 on 12/08/2019 by Og Garcia MD at [facility] Left: Foot [employer] [id number] 02/19/2020 [id number] / / [id number] [employer] 7118-2020kt Dynaforce [id number] Superelastic Staple Bone Nitinol Sterile - [id number] Implanted:Qty: 1 on 12/08/2019 by Og Garcia MD at [facility] Left: Foot [employer] [id number] 04/15/2021 7118-2020KT / / [id number] [employer] [id number] Screw Bone Medline Unite L18mm Od3.5mm Foot Ankle Nonlock - [id number] Implanted:Qty: 1 on 08/16/2020 by Og Garcia MD at [facility] Left: Foot [employer] [id number] / / NONE [employer] [id number] Screw 24mm 3.5mm Bone Medline Unite Foot Ankle Lock - [id number] Implanted:Qty: 2 on 08/16/2020 by Og Garcia MD at [facility] Left: Foot [employer] [id number] / / NONE [employer] [id number] Screw 20mm 3.5mm Bone Medline Unite Foot Ankle Lock - [id number] Implanted:Qty: 2 on 08/16/2020 by Og Garcia MD at [facility] Left: Foot [employer] [id number] / / NONE [employer] [id number] Katie 9x15mm Compression Ankle Foot Staple Bone Stainless - [id number] - [id number] Implanted:Qty: 1 on 08/16/2020 by Og Garcia MD at [facility] Left: Foot [employer] [id number] / [id number] / [employer] [id number] Screw Bone Medline Unite L20mm Od3.5mm Foot Ankle Nonlock - [id number] Implanted:Qty: 1 on 08/16/2020 by Og Garcia MD at [facility] Left: Foot [employer] [id number] / / [employer] [id number] Plate Bone Medline Unite Straight Tarsometatarsal 3 Hole - [id number] Implanted:Qty: 1 on 08/16/2020 by Og Garcia MD at [facility] Left: Foot [employer] [id number] / / Blazable [employer] 876p-0400 Mini Ignite Power Mix Injectable Graft 4ml Synthetic Tissue - [id number] - [id number] Implanted:Qty: 1 on 08/16/2020 by Og Garcia MD at [facility] Left: Foot Tianji Inc 03/07/2024 [id number] / [id number] / [employer] [id number] Plate Bone Medline Unite Tarsometatarsal Nonsterile Lapidus - [id number] Implanted:Qty: 1 on 08/16/2020 by Og Garcia MD at [facility] Left: Foot [employer] [id number] / / Medline [id number] Inc [id number] Screw Bone Medline Unite L22mm Od3.5mm Foot Ankle Nonlock - [id number] Implanted:Qty: 1 on 08/16/2020 by Og Garcia MD at [facility] Left: Foot Medline Industries Inc [id number] / / NONE Med[employer] Inc [id number] Screw Bone L40mm Od4mm Foot Ankle Cannulated Color Coded Osteotomy - [id number] Implanted:Qty: 1 on 08/16/2020 by Og Garcia MD at [facility] Left: Foot Medline Industries Inc [id number] / / NONE Lundberg [employer] Nephew/Richco/Ort ho Zeny Ii 13mm Constrain Knee 3-4 Insert Articular Uhmwpe [id number] - [id number] Implanted:Qty: 1 on 02/04/2024 by Efrain Iglesias MD at [facility] Right: Knee [employer]/Richco/ Ortho [id number] 09/22/2032 [id number] / / [id number] Biocomposites Stimulan Rapid Cure Kit Paste Marketing Operations Intern 10cc 20cc Bone Void [id number] - [id number] Implanted:Qty: 1 on 02/04/2024 by Efrain Iglesias MD at [facility] Right: Knee Biocom[employer]ites [id number] 04/15/2025 [id number] / / [id number] Ernesto [employer] Inc Baseplate Tibial Knee Cemented Right Fixed Stemmed Persona Size E Tivanium [id number] - [id number] Implanted:Qty: 1 on 03/28/2024 by Efrain Iglesias MD at [facility] Right: Knee Ernesto [employer] Inc [id number] 10/10/2033 [id number] / / [id number] Ernesto [employer] Inc Persona 14mm 30+ Mm Knee Tibia Taper Extension Stem [id number] - [id number] Implanted:Qty: 1 on 03/28/2024 by Efrain Iglesias MD at [facility] Right: Knee Ernesto [employer] Inc [id number] 04/04/2033 [id number] / / [id number] [employer] Simplex P Full Dose Radiopaque Preblend Cement Bone Tobramycin 6197-9-001 - [id number] Implanted:Qty: 5 on 03/28/2024 by Efrain Iglesias MD at [facility] Right: Knee [employer] [id number] 03/18/2025 6197-9-001 / / [id number] [employer] Simplex P Full Dose Radiopaque Preblend Cement Bone Tobramycin 6197-9-001 - [id number] Implanted:Qty: 1 on 03/28/2024 by Efrain Iglesias MD at [facility] Right: Knee [employer] [id number] 01/15/2025 6197-9-001 / / [id number] Ernesto [employer] Inc Persona 18mm Constrain Posterior Stabilized Knee Right 6-9 Ef [id number] - [id number] Implanted:Qty: 1 on 03/28/2024 by Efrain Iglesias MD at [facility] Right: Knee Ernesto [employer] Inc [id number] 04/06/2028 [id number] / / [id number] Ernesto Bi[employer] Inc Component Femoral Knee Cemented Std Right Persona Size 6 Tivanium [id number] - [id number] Implanted:Qty: 1 on 03/28/2024 by Efrain Iglesias MD at [facility] Right: Knee Ernesto [employer] Inc 03/04/2033 [id number] / / [id number] Explanted Type Area Medical Assisting Program Director Device Identifier Shelf Expiration Date Model / Serial / Lot Lundberg [employer] Nephew/Richco/ Ortho Zeny Ii 13mm Constrain Knee 3-4 Insert Articular Uhmwpe [id number] - S0 - [id number] Explanted:Qty: 1 on 08/03/2023 at [facility] Other - see comments Lundberg [employer] Nephew/Rich[employer]/ Ortho [id number] 08/28/2031 [id number] / [id number] [employer]aire [employer] [id number] Haydee .45in 9in 1 [place] Orthopedic Wire Fixation - [id number] Explanted:Qty: 1 on 12/08/2019 at [facility] Left: Foot [employer] [id number] / / [employer] [id number] Haydee .062in 9in [place] One End Orthopedic Wire - S0 - [id number] Explanted:Qty: 2 on 12/08/2019 at [facility] Left: Foot [employer] [id number] / 0 / Ernesto [employer] Inc [id number] Haydee 1.6mm 150mm 1 End [place] Wire Fixation Stainless - [id number] Explanted:Qty: 1 on 08/16/2020 by Og Garcia MD at [facility] Left: Foot Ernesto [employer] Inc [id number] / / [employer]ito[employer]gles Inc [id number] Pin Fixation Medline Unite L10mm Od1.1mm - [id number] Explanted:Qty: 2 on 08/16/2020 by Og Garcia MD at [facility] Left: Foot [employer] [id number] / / Procedures Procedure Name Priority Date/Time Associated Diagnosis Comments BASIC METABOLIC PANEL Routine 05/03/2024 9:47 AM CDT Infection of prosthetic joint, sequela CBC WITH AUTO DIFFERENTIAL Routine 05/03/2024 9:47 AM CDT Infection of prosthetic joint, sequela EGFR Routine 04/26/2024 9:16 AM CDT CRP (ACUTE PHASE) Routine 04/26/2024 9:1 6 AM CDT ERYTHROCYTE SEDIMENTATION RATE Routine 04/26/2024 9:16 AM CDT CREATINE KINASE (CK), TOTAL Routine 04/26/2024 9:16 AM CDT CBC WITHOUT DIFFERENTIAL Routine 04/26/2024 9:16 AM CDT GLUCOSE, RANDOM (OUTREACH) Routine 04/26/2024 9:16 AM CDT COMPREHENSIVE METABOLIC PANEL WITHOUT GLUCOSE (OUTREACH) Routine 04/26/2024 9:16 AM CDT DIFFERENTIAL AUTO Routine 04/20/2024 3:4 2 PM [facility] NURSES' REGISTRY Infection of prosthetic joint, sequela CBC WITH AUTO DIFFERENTIAL Routine 04/20/2024 3:42 PM REGISTRAR NURSES' REGISTRY Infection of prosthetic joint, sequela MANUAL DIFFERENTIAL Routine 04/18/2024 11:33 AM [facility]RAR NURSES' REGISTRY EGFR Routine 04/18/2024 11:33 AM REGISTRAR NURSES' REGISTRY CREATINE KINASE (CK), TOTAL Routine 04/18/2024 11:33 AM REGISTRAR NURSES' REGISTRY COMPREHENSIVE METABOLIC PANEL Routine 04/18/2024 11:33 AM REGISTRAR NURSES' REGISTRY CBC WITH AUTO DIFFERENTIAL Routine 04/18/2024 11:33 AM REGISTRAR NURSES' REGISTRY DIFFERENTIAL AUTO Routine 04/15/2024 11:36 AM REGISTRAR NURSES' REGISTRY CREATINE KINASE (CK), TOTAL Routine 04/15/2024 11:36 AM REGISTRAR NURSES' REGISTRY CBC WITH AUTO DIFFERENTIAL Routine 04/15/2024 11:36 AM REGISTRAR NURSES' REGISTRY MANUAL DIFFERENTIAL Routine 04/11/2024 2 :06 PM REGISTRAR NURSES' REGISTRY EGFR Routine 04/11/2024 2:06 PM REGISTRAR NURSES' REGISTRY CREATINE KINASE (CK), TOTAL Routine 04/11/2024 2:06 PM REGISTRAR NURSES' REGISTRY CBC WITH AUTO DIFFERENTIAL Routine 04/11/2024 2:06 PM REGISTRAR NURSES' REGISTRY GLUCOSE, RANDOM (OUTREACH) Routine 04/11/2024 2:06 PM REGISTRAR NURSES' REGISTRY COMPREHENSIVE METABOLIC PANEL WITHOUT GLUCOSE (OUTREACH) Routine 04/11/2024 2:06 PM REGISTRAR NURSES' REGISTRY EGFR Routine 04/07/2024 2:00 PM REGISTRAR NURSES' REGISTRY DIFFERENTIAL AUTO Routine 04/07/2024 2:0 0 PM REGISTRAR NURSES' REGISTRY CBC WITH AUTO DIFFERENTIAL Routine 04/07/2024 2:00 PM REGISTRAR NURSES' REGISTRY CREATINE KINASE (CK), TOTAL Routine 04/07/2024 2:00 PM REGISTRAR NURSES' REGISTRY COMPREHENSIVE METABOLIC PANEL Routine 04/07/2024 2:00 PM REGISTRAR NURSES' REGISTRY EGFR Routine 04/02/2024 5:10 AM REGISTRAR NURSES' REGISTRY DIFFERENTIAL AUTO Routine 04/02/2024 5:1 0 AM REGISTRAR NURSES' REGISTRY CBC WITH AUTO DIFFERENTIAL Routine 04/02/2024 5:10 AM REGISTRAR NURSES' REGISTRY BASIC METABOLIC PANEL Routine 04/02/2024 5:10 AM REGISTRAR NURSES' REGISTRY EGFR Routine 04/01/2024 5:46 AM REGISTRAR NURSES' REGISTRY DIFFERENTIAL AUTO Routine 04/01/2024 5:4 6 AM REGISTRAR NURSES' REGISTRY BASIC METABOLIC PANEL Routine 04/01/2024 5:46 AM REGISTRAR NURSES' REGISTRY ERYTHROCYTE SEDIMENTATION RATE Timed 04/01/2024 5:46 AM REG[facility]RAR NURSES' REGISTRY CBC WITH AUTO DIFFERENTIAL Routine 04/01/2024 5:46 AM REGISTRAR NURSES' REGISTRY DIFFERENTIAL AUTO Routine 04/01/2024 4:3 0 AM REG[facility]RAR NURSES' REGISTRY CBC WITH AUTO DIFFERENTIAL Routine 04/01/2024 4:30 AM [facility]RAR NURSES' REGISTRY HEMOGLOBIN AND HEMATOCRIT Routine 03/31/2024 11:48 AM REG[facility]RAR NURSES' REGISTRY TRANSFUSE RED BLOOD CELLS Timed 03/31/2024 7:02 AM REG[facility]RAR NURSES' REGISTRY PREPARE RBC Timed 03/31/2024 6:05 AM REGISTRAR NURSES' REGISTRY CRP (ACUTE PHASE) Timed 03/31/2024 6:0 4 AM REGISTRAR NURSES' REGISTRY CREATINE KINASE (CK), TOTAL Timed 03/31/2024 6:04 AM REGISTRAR NURSES' REGISTRY ERYTHROCYTE SEDIMENTATION RATE Timed 03/31/2024 6:04 AM REGISTRAR NURSES' REGISTRY EGFR Timed 03/31/2024 6:04 AM REGISTRAR NURSES' REGISTRY BASIC METABOLIC PANEL Timed 03/31/2024 6:04 AM REGISTRAR NURSES' REGISTRY CBC WITHOUT DIFFERENTIAL Timed 03/31/2024 6:04 AM REGISTRAR NURSES' REGISTRY EGFR Routine 03/31/2024 5:21 AM REGISTRAR NURSES' REGISTRY DIFFERENTIAL AUTO Routine 03/31/2024 5:2 1 AM REGISTRAR NURSES' REGISTRY CBC WITH AUTO DIFFERENTIAL Routine 03/31/2024 5:21 AM REGISTRAR NURSES' REGISTRY BASIC METABOLIC PANEL Routine 03/31/2024 5:21 AM REG[facility]RAR NURSES' REGISTRY XR ANKLE RIGHT 3 OR MORE VIEWS IP Routine 03/30/2024 2:50 PM REG[facility]RAR NURSES' REGISTRY EGFR Routine 03/30/2024 12:44 PM REG[facility]RAR NURSES' REGISTRY VANCOMYCIN LEVEL TROUGH Routine 03/30/2024 12:44 PM REGISTRAR NURSES' REGISTRY CRP (ACUTE PHASE) Routine 03/30/2024 12:44 PM REGISTRAR NURSES' REGISTRY BASIC METABOLIC PANEL Routine 03/30/2024 12:44 PM REGISTRAR NURSES' REGISTRY EGFR Timed 03/29/2024 5:33 AM REGISTRAR NURSES' REGISTRY CBC WITHOUT DIFFERENTIAL Timed 03/29/2024 5:33 AM REGISTRAR NURSES' REGISTRY BASIC METABOLIC PANEL Timed 03/29/2024 5:33 AM REGISTRAR NURSES' REGISTRY XR KNEE RIGHT 1 OR 2 VIEWS ED Urgent/IP Urgent 03/28/2024 4:21 PM REGISTRAR NURSES' REGISTRY MYCOBACTERIOLOGY AFB CULTURE AND ACID-FAST STAIN Routine 03/28/2024 12:54 PM REGISTRAR NURSES' REGISTRY MYCOLOGY (FUNGAL) CULTURE AND STAIN Routine 03/28/2024 12:54 PM REGISTRAR NURSES' REGISTRY TISSUE AEROBIC AND ANAEROBIC CULTURE AND GRAM STAIN Routine 03/28/2024 12:54 PM REGISTRAR NURSES' REGISTRY MYCOBACTERIOLOGY AFB CULTURE Routine 03/28/2024 12:49 PM REGISTRAR NURSES' REGISTRY MYCOLOGY (FUNGAL) CULTURE Routine 03/28/2024 12:49 PM REGISTRAR NURSES' REGISTRY TISSUE AEROBIC AND ANAEROBIC CULTURE AND GRAM STAIN Routine 03/28/2024 12:49 PM REGISTRAR NURSES' REGISTRY AEROBIC AND ANAEROBIC CULTURE AND GRAM STAIN Routine 03/28/2024 12:48 PM REGISTRAR NURSES' REGISTRY MYCOBACTERIOLOGY AFB CULTURE Routine 03/28/2024 12:48 PM REGISTRAR NURSES' REGISTRY MYCOLOGY (FUNGAL) CULTURE Routine 03/28/2024 12:48 PM REGISTRAR NURSES' REGISTRY CELL DIFFERENTIAL, BODY FLUID STAT 03/28/2024 11:43 AM REGISTRAR NURSES' REGISTRY CRYSTAL ANALYSIS, BODY FLUID STAT 03/28/2024 11:43 AM REGISTRAR NURSES' REGISTRY CELL COUNT W/REFLEX DIFFERENTIAL, BODY FLUID STAT 03/28/2024 11:43 AM REGISTRAR NURSES' REGISTRY MYCOLOGY (FUNGAL) CULTURE STAT 03/28/2024 11:43 AM REGISTRAR NURSES' REGISTRY AEROBIC AND ANAEROBIC CULTURE AND GRAM STAIN STAT 03/28/2024 11:43 AM REGISTRAR NURSES' REGISTRY RI AN PROCEDURE PLACEHOLDER Routine 03/28/2024 11:24 AM REGISTRAR NURSES' REGISTRY RI AN PROCEDURE PLACEHOLDER Routine 03/28/2024 11:22 AM REGISTRAR NURSES' REGISTRY RI AN ELECTIVE ENDOTRACHEAL AIRWAY Routine 03/28/2024 11:22 AM REGISTRAR NURSES' REGISTRY ASPIRATION INJECTION INTERMEDIATE JOINT BURSA WITHOUT GUIDE (WRIST, ELBOW) 03/28/2024 11:01 AM REGISTRAR NURSES' REGISTRY 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, subsequent encounter Acute pain of right knee Case Notes 2/3 per [place]ore ctc is 140 min per diego murguia ctc is 30 min- RC FLAP ELEVATION 03/28/2024 11:01 AM REGISTRAR NURSES' REGISTRY 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, subsequent encounter Acute pain of right knee Case Notes 2/3 per [place]ore ctc is 140 min per diego murguia ctc is 30 min- RC PLACEMENT SPACER/ANTIBIOTIC BEAD - KNEE 03/28/2024 11:01 AM REGISTRAR NURSES' REGISTRY 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, subsequent encounter Acute pain of right knee Case Notes 2/3 per king moore ctc is 140 min per diego murguia ctc is 30 min- RC VITAMIN D 25 HYDROXY Routine 03/23/2024 9:29 AM REGISTRAR NURSES' REGISTRY 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, subsequent encounter Acute pain of right knee TYPE AND SCREEN 14 DAY Routine 9:29 AM REG[facility]RAR NURSES' REGISTRY Preoperative testing EGFR Routine 03/21/2024 9:53 AM REGISTRAR NURSES' REGISTRY DIFFERENTIAL AUTO Routine 03/21/2024 9:5 3 AM REGISTRAR NURSES' REGISTRY CREATINE KINASE (CK), TOTAL Routine 03/21/2024 9:53 AM REGISTRAR NURSES' REGISTRY CBC WITH AUTO DIFFERENTIAL Routine 03/21/2024 9:53 AM REGISTRAR NURSES' REGISTRY COMPREHENSIVE METABOLIC PANEL Routine 03/21/2024 9:53 AM REGISTRAR NURSES' REGISTRY CREATINE KINASE (CK), TOTAL Routine 03/17/2024 9:43 AM REGISTRAR NURSES' REGISTRY EGFR Routine 03/14/2024 9:41 AM REGISTRAR NURSES' REGISTRY DIFFERENTIAL AUTO Routine 03/14/2024 9:4 1 AM REGISTRAR NURSES' REGISTRY CRP (ACUTE PHASE) Routine 03/14/2024 9:4 1 AM REGISTRAR NURSES' REGISTRY ERYTHROCYTE SEDIMENTATION RATE Routine 03/14/2024 9:41 AM REGISTRAR NURSES' REGISTRY CREATINE KINASE (CK), TOTAL Routine 03/14/2024 9:41 AM REGISTRAR NURSES' REGISTRY CBC WITH AUTO DIFFERENTIAL Routine 03/14/2024 9:41 AM REGISTRAR NURSES' REGISTRY COMPREHENSIVE METABOLIC PANEL Routine 03/14/2024 9:41 AM REGISTRAR NURSES' REGISTRY CREATINE KINASE (CK), TOTAL Routine 03/10/2024 9:48 AM REGISTRAR NURSES' REGISTRY IRON PROFILE W/ IBC Routine 03/09/2024 3 :41 PM REGISTRAR NURSES' REGISTRY Infection of prosthetic knee joint, sequela URINALYSIS AND REFLEX TO MICROSCOPIC AND CULTURE Routine 03/09/2024 3:41 PM REGISTRAR NURSES' REGISTRY Infection of prosthetic knee joint, sequela EGFR Routine 03/07/2024 10:36 AM REGISTRAR NURSES' REGISTRY DIFFERENTIAL AUTO Routine 03/07/2024 10:36 AM REGISTRAR NURSES' REGISTRY CREATINE KINASE (CK), TOTAL Routine 03/07/2024 10:36 AM REGISTRAR NURSES' REGISTRY CBC WITH AUTO DIFFERENTIAL Routine 03/07/2024 10:36 AM REGISTRAR NURSES' REGISTRY COMPREHENSIVE METABOLIC PANEL Routine 03/07/2024 10:36 AM REGISTRAR NURSES' REGISTRY CREATINE KINASE (CK), TOTAL Routine 03/03/2024 10:22 AM REGISTRAR NURSES' REGISTRY EGFR STAT 02/29/2024 10:08 AM REGISTRAR NURSES' REGISTRY DIFFERENTIAL AUTO STAT 02/29/2024 10:08 AM REGISTRAR NURSES' REGISTRY CBC WITH AUTO DIFFERENTIAL STAT 02/29/2024 10:08 AM REGISTRAR NURSES' REGISTRY CREATINE KINASE (CK), TOTAL STAT 02/29/2024 10:08 AM REGISTRAR NURSES' REGISTRY COMPREHENSIVE METABOLIC PANEL STAT 02/29/2024 10:08 AM REGISTRAR NURSES' REGISTRY IRON PROFILE W/ IBC Routine 02/26/2024 12:00 PM REGISTRAR NURSES' REGISTRY CREATINE KINASE (CK), TOTAL Routine 02/26/2024 12:00 PM REGISTRAR NURSES' REGISTRY HEPATITIS C ANTIBODY Routine 05/18/2020 12:15 PM CDT Needle exposure, initial encounter from Last 3 Months or Most Recently Relevant to Health Maintenance Results * (ABNORMAL) CBC with auto differential (05/03/2024 9:47 AM CDT) WBC 6.4 3.8 - 10.8 Thousand/u L [facility] RBC, POC 3.74(L) 3.80 - 5.10 Million/uL [facility] Hgb 9.1(L) 11.7 - 15.5 g/dL [facility] Hct 30.7(L) 35.0 - 45.0 % [facility] MCV 82.1 80.0 - 100.0 fL [facility] MCH 24.3(L) 27.0 - 33.0 pg [facility] MCHC 29.6(L) 32.0 - 36.0 g/dL [facility] Comment: For adults, a slight decrease in the calculated MCHC value (in the range of 30 to 32 g/dL) is most likely not clinically significant; however, it should be interpreted with caution in correlation with other red cell parameters and the patient's clinical condition. Rdw 14.6 11.0 - 15.0 % [facility] Platelets 505(H) 140 - 400 Thousand/u L [facility] MPV 10.1 7.5 - 12.5 fL [facility] Neutrophils, abs 2,957 1,500 - 7,800 cells/uL [facility] Lymphocytes, abs 1,926 850 - 3,900 cells/uL [facility] Monocyte abs 435 200 - 950 cells/uL [facility] Eosinophils, abs 992(H) 15 - 500 cells/uL [facility] Basophils, abs 90 0 - 200 cells/uL [facility] Neutrophils 46.2 % [facility] Lymphocyte pct 30.1 % [facility] Monocytes 6.8 % [facility] Eosinophils 15.5 % [facility] Basophils 1.4 % [facility] Blood 05/03/2024 9:47 AM CDT 05/03/2024 9:47 AM CDT Narrative [facility] - 05/03/2024 5:04 PM CDT FASTING:NO FASTING: NO Pam Negrete EXTRUSION MANAGER LAB BLOOD ORDERABLE S Final Result Performing Organization Address City/[facility]/ZIP Co de Phone Number TOO [facility] [address] [place] [address] * Basic metabolic panel (05/03/2024 9:47 AM CDT) [facility] Glucose 105 65 - 139 mg/dL [facility] Comment: Non-fasting reference interval BUN 15 7 - 25 mg/dL [facility] Creatinine 1.01 0.50 - 1.03 mg/dL [facility] eGFR 66 > OR = 60 mL/min/1.7 3m2 [facility] BUN/creat ratio SEE NOTE: 6 22 (calc) [facility] Comment: Not Reported: BUN and Creatinine are within reference range. Sodium 138 135 - 146 mmol/L [facility] Potassium, pl 4.8 3.5 - 5.3 mmol/L [facility] Chloride 103 98 - 110 mmol/L [facility] CO2 25 20 - 32 mmol/L [facility] Calcium 9.2 8.6 - 10.4 mg/dL [facility] Blood 05/03/2024 9:47 AM CDT 05/03/2024 9:47 AM CDT Narrative [facility] - 05/03/2024 5:04 PM CDT FASTING:NO FASTING: NO Pam Negrete EXTRUSION MANAGER LAB BLOOD ORDERABLE S Final Result Performing Organization Address City/[facility]/ZIP Co de Phone Number Data [facility] [address] [place] [address] * Glucose, random (Outreach) (04/26/2024 9:16 AM CDT) Glucose 86 70 - 199 mg/dL Comment: Interpretive Data Fasting glucose >/= 126 mg/dl is diagnostic for diabetes. Fasting is defined as no caloric intake for at least 8 hours. Fasting glucose between 100 mg/dl to 125 mg/dl is diagnostic of prediabetes. In a patient with classic symptoms of hyperglycemia or hyperglycemic crisis, a random glucose >/= 200 mg/dl is diagnostic for diabetes. In the absence of unequivocal hyperglycemia, results should be confirmed by repeat testing. The classification and Diagnosis of Diabetes Diabetes Care 2021; 46: S19-S40. Current interpretive data was last revised 2022. Blood 04/26/2024 9:16 AM CDT 04/26/2024 2:33 PM CDT us Gato Chatterjee MD LAB BLOOD ORDERABLES Final Res ult Performing Organization Address [facility] Co de Phone Number [facility] Department [place] [address] * (ABNORMAL) eGFR (04/26/2024 9:16 AM CDT) eGFR 57(L) >=60 mL/min/1. 73 m2 Comment: Interpretive Data Reference Interval Normal >/= 90 mL/min/1.73m2 Mildly decreased* 60 - 89 mL/min/1.73m2 Mildly to moderately decreased 45 - 59 mL/min/1.73m2 Moderately to severely decreased 30 - 44 mL/min/1.73m2 Severely decreased 15 - 29 mL/min/1.73m2 Kidney Failure < 15 mL/min/1.73m2 *Relative to young adult level Estimated glomerular filtration rate is determined by the 2020 CKD-EPI equation recommended by the National Kidney Foundation (A Unifying Approach to GFR Estimation: Recommendations of the NKF-ASK Task Force on Reassessing the Inclusion of Race in Diagnosing Kidney Disease, JASN 2020). The CKD-EPI equation should not be used for patients with unstable renal function and has not been validated in children and those over 70. Current interpretive data was last reviewed 2020. Blood 04/26/2024 9:16 AM CDT 04/26/2024 2:44 PM CDT Gato Chatterjee MD LAB BLOOD ORDERABLES Final Res ult Performing Organization Address City/[facility]/ZIP Co de Phone Number [facility] [place] [employer] [place] [address] * (ABNORMAL) Comprehensive metabolic panel, without glucose (Outreach) (04/26/2024 9:16 AM CDT) Sodium 138 135 - 145 mmol/L Potassium, pl 4.9 3.3 - 4.9 mmol/L [facility] Chloride 105 97 - 110 mmol/L [facility] CO2 22 22 - 32 mmol/L [facility] Anion gap 11 2 - 15 mmol/L [facility] BUN 20 6 - 25 mg/dL [facility] Creatinine 1.14(H) 0.60 - 1.10 mg/dL [facility] Calcium 9.2 8.5 - 10.3 mg/dL [facility] Protein, pl 6.9 6.5 - 8.5 g/dL [facility] Albumin 4.3 3.5 - 5.0 g/dL [facility] Bilirubin, total <0.2 0.1 - 1.2 mg/dL [facility] Alk phos 82 40 - 130 Units/L [facility] AST 21 10 - 45 Units/L [facility] ALT 14 7 - 45 Units/L [facility] Blood 04/26/2024 9:16 AM CDT 04/26/2024 2:33 PM CDT Gato Chatterjee MD LAB BLOOD ORDERABLES Final Res ult [facility] Department [place] [address] * Erythrocyte sedimentation rate (04/26/2024 9:16 AM CDT) [facility] Erythrocyte sedimentation rate 25 1 - 30 mm/hr Blood 04/26/2024 9:16 AM CDT 04/26/2024 2:35 PM CDT Gato Chatterjee MD LAB BLOOD ORDERABLES Final Res ult Performing Organization Address [facility] Co de Phone Number [facility] Department [place] [address] * (ABNORMAL) CBC without differential (04/26/2024 9:16 AM CDT) [facility] WBC 8.0 3.8 - 9.9 K/cumm Hgb 9.0(L) 11.9 - 15.5 g/dL [facility] Hct 28.8(L) 35.6 - 45.5 % [facility] Plt 457(H) 150 - 400 K/cumm [facility] MPV 10.7 9.1 - 12.3 fL [facility] RBC 3.66(L) 3.90 - 5.20 M/cumm [facility] MCV 78.7(L) 81.3 - 96.4 fL [facility] MCH 24.6(L) 27.1 - 33.3 pg [facility] MCHC 31.3(L) 32.3 - 35.7 g/dL [facility] RDW CV 15.3(H) 11.1 - 14.9 % [facility] RDW SD 43.8 35.7 - 48.1 fL [facility] NRBC abs 0.00 0.00 - 0.01 K/cumm [facility] Blood 04/26/2024 9:16 AM CDT 04/26/2024 2:35 PM CDT Gato Chatterjee MD LAB BLOOD ORDERABLES Final Res ult Performing Organization Address [facility]/ZIP Co de Phone Number [facility] Department [place] [address] * CRP (acute phase) (04/26/2024 9:16 AM CDT) [facility] CRP 1.8 <=10.0 mg/L Blood 04/26/2024 9:16 AM CDT 04/26/2024 2:33 PM CDT Gato Chatterjee MD LAB BLOOD ORDERABLES Final Res ult [facility] [place] [address] * Creatine kinase (CK), total (04/26/2024 9:16 AM CDT) [facility] CK 65 30 - 200 Units/L Blood 04/26/2024 9:16 AM CDT 04/26/2024 2:33 PM CDT Gato Chatterjee MD LAB BLOOD ORDERABLES Final Res ult Performing Organization Address City/[facility] Co de Phone Number [facility] [place] [address] * (ABNORMAL) Differential, auto (04/20/2024 3:42 PM REGISTRAR NURSES' REGISTRY) [facility] Neutrophil abs 1.4(L) 1.5 - 6.5 K/cumm Imm gran abs 0.1 0.0 - 0.1 K/cumm [facility] Lymphocyte abs 2.7 0.8 - 3.3 K/cumm [facility] Monocyte abs 1.2(H) 0.2 - 0.8 K/cumm [facility] Eosinophil abs 1.1(H) 0.0 - 0.5 K/cumm [facility] Basophil abs 0.1 0.0 - 0.1 K/cumm [facility] Neutrophil pct 20.9 % [facility] Comment: Interpretive Data Percent cell count reference ranges are not reported, since discordance with absolute values may lead to misinterpretation of CBC data. Current Interpretive Data was last revised on 2017. Imm gran pct 1.2 % [facility] Comment: Interpretive Data Percent cell count reference ranges are not reported, since discordance with absolute values may lead to misinterpretation of CBC data. Current Interpretive Data was last revised on 2017. Lymphocyte pct 41.2 % [facility] Comment: Interpretive Data Percent cell count reference ranges are not reported, since discordance with absolute values may lead to misinterpretation of CBC data. Current Interpretive Data was last revised on 2017. Monocyte pct 18.2 % [facility] Comment: Interpretive Data Percent cell count reference ranges are not reported, since discordance with absolute values may lead to misinterpretation of CBC data. Current Interpretive Data was last revised on 2017. Eosinophil pct 16.8 % [facility] Comment: Interpretive Data Percent cell count reference ranges are not reported, since discordance with absolute values may lead to misinterpretation of CBC data. Current Interpretive Data was last revised on 2017. Basophil pct 1.7 % [facility] Comment: Interpretive Data Percent cell count reference ranges are not reported, since discordance with absolute values may lead to misinterpretation of CBC data. Current Interpretive Data was last revised on 2017. Blood 04/20/2024 3:42 PM [facility] 04/20/2024 6:12 PM [facility] us Gato Chatterjee MD LAB BLOOD ORDERABLES Final Res ult [facility] Department [place] [address] * (ABNORMAL) CBC with auto differential (04/20/2024 3:42 PM [facility]) WBC 6.7 3.8 - 9.9 K/cumm Hgb 9.1(L) 11.9 - 15.5 g/dL [facility] Hct 29.4(L) 35.6 - 45.5 % [facility] Plt 520(H) 150 - 400 K/cumm [facility] MPV 10.5 9.1 - 12.3 fL [facility] RBC 3.66(L) 3.90 - 5.20 M/cumm [facility] MCV 80.3(L) 81.3 - 96.4 fL [facility] MCH 24.9(L) 27.1 - 33.3 pg [facility] MCHC 31.0(L) 32.3 - 35.7 g/dL [facility] RDW CV 14.6 11.1 - 14.9 % [facility] RDW SD 43.4 35.7 - 48.1 fL [facility] NRBC abs 0.00 0.00 - 0.01 K/cumm [facility] Blood 04/20/2024 3:42 PM [facility] 04/20/2024 6:12 PM [facility] us Gato Chatterjee MD LAB BLOOD ORDERABLES Final Res ult [facility] Department [place] [address] * eGFR (04/18/2024 11:33 AM [facility]) eGFR 80 >=60 mL/min/1. 73 m2 Comment: Interpretive Data Reference Interval Normal >/= 90 mL/min/1.73m2 Mildly decreased* 60 - 89 mL/min/1.73m2 Mildly to moderately decreased 45 - 59 mL/min/1.73m2 Moderately to severely decreased 30 - 44 mL/min/1.73m2 Severely decreased 15 - 29 mL/min/1.73m2 Kidney Failure < 15 mL/min/1.73m2 *Relative to young adult level Estimated glomerular filtration rate is determined by the 2020 CKD-EPI equation recommended by the National Kidney Foundation (A Unifying Approach to GFR Estimation: Recommendations of the NKF-ASK Task Force on Reassessing the Inclusion of Race in Diagnosing Kidney Disease, JASN 2020). The CKD-EPI equation should not be used for patients with unstable renal function and has not been validated in children and those over 70. Current interpretive data was last reviewed 2020. Blood 04/18/2024 11:3 3 AM [facility] 04/18/2024 4:01 PM [facility] Gato Chatterjee MD LAB BLOOD ORDERABLES Final Res ult Performing Organization Address [facility] de Phone Number [facility] Department [place] [address] * (ABNORMAL) CBC with auto differential (04/18/2024 11:33 AM [facility]) Pathologist [facility] WBC 4.6 3.8 - 9.9 K/cumm Hgb 8.9(L) 11.9 - 15.5 g/dL [facility] Hct 29.3(L) 35.6 - 45.5 % [facility] Plt 559(H) 150 - 400 K/cumm [facility] MPV 10.8 9.1 - 12.3 fL [facility] RBC 3.61(L) 3.90 - 5.20 M/cumm [facility] MCV 81.2(L) 81.3 - 96.4 fL [facility] MCH 24.7(L) 27.1 - 33.3 pg [facility] MCHC 30.4(L) 32.3 - 35.7 g/dL [facility] RDW CV 14.6 11.1 - 14.9 % [facility] RDW SD 43.5 35.7 - 48.1 fL [facility] NRBC abs 0.00 0.00 - 0.01 K/cumm [facility] Blood 04/18/2024 11:3 3 AM [facility] 04/18/2024 3:48 PM [facility] Gato Chatterjee MD LAB BLOOD ORDERABLES Edited Re sult - Final Performing Organization Address [facility]/ZIP Co de Phone Number [facility] Department [place] [address] * (ABNORMAL) Manual Differential (04/18/2024 11:33 AM [facility]) Pathologist [facility] Differential Manual Cells Counted 139 [facility] Neutrophil abs 0.1(C) 1.5 - 6.5 K/cumm [facility] Comment:Critical result call ed to and read back by WENDY HARRELL MD on 04 18 2024 at 1722 to Pal Justice. Imm gran abs 0.0 0.0 - 0.1 K/cumm [facility] Lymphocyte abs 2.6 0.8 - 3.3 K/cumm [facility] Monocyte abs 0.9(H) 0.2 - 0.8 K/cumm [facility] Eosinophil abs 0.8(H) 0.0 - 0.5 K/cumm [facility] Basophil abs 0.2(H) 0.0 - 0.1 K/cumm [facility] Neutrophil pct 1.4 % [facility] Comment: Interpretive Data Percent cell count reference ranges are not reported, since discordance with absolute values may lead to misinterpretation of CBC data. Current Interpretive Data was last revised on 2017. Lymphocyte pct 54.8 % [facility] Comment: Interpretive Data Percent cell count reference ranges are not reported, since discordance with absolute values may lead to misinterpretation of CBC data. Current Interpretive Data was last revised on 2017. Monocyte pct 19.4 % [facility] Comment: Interpretive Data Percent cell count reference ranges are not reported, since discordance with absolute values may lead to misinterpretation of CBC data. Current Interpretive Data was last revised on 2017. Eosinophil pct 18.0 % [facility] Comment: Interpretive Data Percent cell count reference ranges are not reported, since discordance with absolute values may lead to misinterpretation of CBC data. Current Interpretive Data was last revised on 2017. Basophil pct 4.3 % [facility] Comment: Interpretive Data Percent cell count reference ranges are not reported, since discordance with absolute values may lead to misinterpretation of CBC data. Current Interpretive Data was last revised on 2017. Myelocyte pct 0.7(H) 0.0 - 0.0 % [facility] Variant lymph pct 1.4(H) 0.0 - 0.0 % [facility] Blood 04/18/2024 11:3 3 AM [facility] 04/18/2024 4:05 PM [facility] Gato Chatterjee MD LAB BLOOD ORDERABLES Final Res ult Performing Organization Address City/[facility]/ZIP Co de Phone Number [facility] Department [place] [address] * Creatine kinase (CK), total (04/18/2024 11:33 AM [facility]) Pathologist [facility] CK 35 30 - 200 Units/L Blood 04/18/2024 11:3 3 AM [facility] REG[facility] 04/18/2024 3:49 PM [facility] REG[facility] Gato Chatterjee MD LAB BLOOD ORDERABLES Final Res ult Performing Organization Address [facility] de Phone Number [facility] [place] [address] * Comprehensive metabolic panel (04/18/2024 11:33 AM REGISTRAR NURSES' REGISTRY) [facility] Sodium 140 135 - 145 mmol/L Potassium, pl 3.7 3.3 - 4.9 mmol/L [facility] Chloride 104 97 - 110 mmol/L [facility] CO2 25 22 - 32 mmol/L [facility] Anion gap 11 2 - 15 mmol/L [facility] BUN 19 6 - 25 mg/dL [facility] Creatinine 0.86 0.60 - 1.10 mg/dL [facility] Glucose 101 70 - 199 mg/dL [facility] Comment: Interpretive Data Fasting glucose >/= 126 mg/dl is diagnostic for diabetes. Fasting is defined as no caloric intake for at least 8 hours. Fasting glucose between 100 mg/dl to 125 mg/dl is diagnostic of prediabetes. In a patient with classic symptoms of hyperglycemia or hyperglycemic crisis, a random glucose >/= 200 mg/dl is diagnostic for diabetes. In the absence of unequivocal hyperglycemia, results should be confirmed by repeat testing. The classification and Diagnosis of Diabetes Diabetes Care 2021; 46: S19-S40. Current interpretive data was last revised 2022. Calcium 9.5 8.5 - 10.3 mg/dL [facility] Bilirubin, total <0.2 0.1 - 1.2 mg/dL [facility] Protein, pl 7.0 6.5 - 8.5 g/dL [facility] Albumin 4.1 3.5 - 5.0 g/dL [facility] Alk phos 87 40 - 130 Units/L [facility] ALT 15 7 - 45 Units/L [facility] AST 14 10 - 45 Units/L [facility] Blood 04/18/2024 11:3 3 AM [facility] 04/18/2024 3:49 PM [facility] REGISTRY us Gato Chatterjee MD LAB BLOOD ORDERABLES Final Res ult [facility] Department [place] [address] * (ABNORMAL) Differential, auto (04/15/2024 11:36 AM [facility]) Neutrophil abs 0.0(C) 1.5 - 6.5 K/cumm Comment:waiting 4 call back. Critical result called to and read back by BRENDA POLO(RN) on 04 15 2024 at 1507 to Jenelle Wallace. Imm gran abs 0.0 0.0 - 0.1 K/cumm [facility] Lymphocyte abs 1.8 0.8 - 3.3 K/cumm [facility] Monocyte abs 1.1(H) 0.2 - 0.8 K/cumm [facility] Eosinophil abs 0.7(H) 0.0 - 0.5 K/cumm [facility] Basophil abs 0.1 0.0 - 0.1 K/cumm [facility] Neutrophil pct 0.0 % [facility] Comment: Interpretive Data Percent cell count reference ranges are not reported, since discordance with absolute values may lead to misinterpretation of CBC data. Current Interpretive Data was last revised on 2017. Imm gran pct 0.2 % [facility] Comment: Interpretive Data Percent cell count reference ranges are not reported, since discordance with absolute values may lead to misinterpretation of CBC data. Current Interpretive Data was last revised on 2017. Lymphocyte pct 49.5 % [facility] Comment: Interpretive Data Percent cell count reference ranges are not reported, since discordance with absolute values may lead to misinterpretation of CBC data. Current Interpretive Data was last revised on 2017. Monocyte pct 29.4 % [facility] Comment: Interpretive Data Percent cell count reference ranges are not reported, since discordance with absolute values may lead to misinterpretation of CBC data. Current Interpretive Data was last revised on 2017. Eosinophil pct 18.7 % [facility] Comment: Interpretive Data Percent cell count reference ranges are not reported, since discordance with absolute values may lead to misinterpretation of CBC data. Current Interpretive Data was last revised on 2017. Basophil pct 2.2 % [facility] Comment: Interpretive Data Percent cell count reference ranges are not reported, since discordance with absolute values may lead to misinterpretation of CBC data. Current Interpretive Data was last revised on 2017. Blood 04/15/2024 11:3 6 AM [facility] 04/15/2024 1:39 PM [facility] us Gato Chatterjee MD LAB BLOOD ORDERABLES Final Res ult [facility] [place] [facility] Department [place] [address] * (ABNORMAL) CBC with auto differential (04/15/2024 11:36 AM [facility] REG[facility]) WBC 3.6(L) 3.8 - 9.9 K/cumm Hgb 8.8(L) 11.9 - 15.5 g/dL [facility] Hct 28.9(L) 35.6 - 45.5 % [facility] Plt 497(H) 150 - 400 K/cumm [facility] MPV 10.1 9.1 - 12.3 fL [facility] RBC 3.55(L) 3.90 - 5.20 M/cumm [facility] MCV 81.4 81.3 - 96.4 fL [facility] MCH 24.8(L) 27.1 - 33.3 pg [facility] MCHC 30.4(L) 32.3 - 35.7 g/dL [facility] RDW CV 14.3 11.1 - 14.9 % [facility] RDW SD 42.8 35.7 - 48.1 fL [facility] NRBC abs 0.00 0.00 - 0.01 K/cumm [facility] Blood 04/15/2024 11:3 6 AM [facility] 04/15/2024 1:39 PM [facility] REG[facility]RY Gato Chatterjee MD LAB BLOOD ORDERABLES Edited Re sult - Final [facility] [place] [address] * Creatine kinase (CK), total (04/15/2024 11:36 AM [facility] REGISTRY) Pathologist [facility] CK 35 30 - 200 Units/L Blood 04/15/2024 11:3 6 AM [facility] REGISTRY 04/15/2024 1:39 PM [facility]URS[facility] REGISTRY Gato Chatterjee MD LAB BLOOD ORDERABLES Final Res ult Performing Organization Address [facility] Co de Phone Number [facility] Department [place] [address] * Glucose, random (Outreach) (04/11/2024 2:06 PM [facility]) Glucose 100 70 - 199 mg/dL Comment: Interpretive Data Fasting glucose >/= 126 mg/dl is diagnostic for diabetes. Fasting is defined as no caloric intake for at least 8 hours. Fasting glucose between 100 mg/dl to 125 mg/dl is diagnostic of prediabetes. In a patient with classic symptoms of hyperglycemia or hyperglycemic crisis, a random glucose >/= 200 mg/dl is diagnostic for diabetes. In the absence of unequivocal hyperglycemia, results should be confirmed by repeat testing. The classification and Diagnosis of Diabetes Diabetes Care 2021; 46: S19-S40. Current interpretive data was last revised 2022. Blood 04/11/2024 2:06 PM [facility] 04/11/2024 6:42 PM [facility] Gato Chatterjee MD LAB BLOOD ORDERABLES Final Res ult Performing Organization Address City/[facility]/ZIP Co de Phone Number [facility] [place] [address] * eGFR (04/11/2024 2:06 PM [facility] REGISTRY) eGFR 86 >=60 mL/min/1. 73 m2 Comment: Interpretive Data Reference Interval Normal >/= 90 mL/min/1.73m2 Mildly decreased* 60 - 89 mL/min/1.73m2 Mildly to moderately decreased 45 - 59 mL/min/1.73m2 Moderately to severely decreased 30 - 44 mL/min/1.73m2 Severely decreased 15 - 29 mL/min/1.73m2 Kidney Failure < 15 mL/min/1.73m2 *Relative to young adult level Estimated glomerular filtration rate is determined by the 2020 CKD-EPI equation recommended by the National Kidney Foundation (A Unifying Approach to GFR Estimation: Recommendations of the NKF-ASK Task Force on Reassessing the Inclusion of Race in Diagnosing Kidney Disease, JASN 2020). The CKD-EPI equation should not be used for patients with unstable renal function and has not been validated in children and those over 70. Current interpretive data was last reviewed 2020. Blood 04/11/2024 2:06 PM [facility] REGISTRY 04/11/2024 6:53 PM [facility] REG[facility]RY Gato Chatterjee MD LAB BLOOD ORDERABLES Final Res ult [facility] [place] [address] * Comprehensive metabolic panel, without glucose (Outreach) (04/11/2024 2:06 PM REGISTRAR NURSES' REGISTRY) Sodium 142 135 - 145 mmol/L Potassium, pl 4.4 3.3 - 4.9 mmol/L [facility] Chloride 104 97 - 110 mmol/L [facility] CO2 27 22 - 32 mmol/L [facility] Anion gap 11 2 - 15 mmol/L [facility] BUN 17 6 - 25 mg/dL [facility] Creatinine 0.81 0.60 - 1.10 mg/dL [facility] Calcium 9.7 8.5 - 10.3 mg/dL [facility] Protein, pl 7.0 6.5 - 8.5 g/dL [facility] Albumin 4.1 3.5 - 5.0 g/dL [facility] Bilirubin, total 0.2 0.1 - 1.2 mg/dL [facility] Alk phos 90 40 - 130 Units/L [facility] AST 22 10 - 45 Units/L [facility] ALT 21 7 - 45 Units/L [facility] Blood 04/11/2024 2:06 PM [facility]URS[facility]' REGISTRY 04/11/2024 6:42 PM REGISTRAR NURSES' REGISTRY us Gato Chatterjee MD LAB BLOOD ORDERABLES Final Res ult [facility] One [facility] [place] [facility] Department [place] [address] * (ABNORMAL) CBC with auto differential (04/11/2024 2:06 PM REGISTRAR NURSES' REGISTRY) WBC 3.0(L) 3.8 - 9.9 K/cumm Hgb 9.0(L) 11.9 - 15.5 g/dL [facility] Hct 29.0(L) 35.6 - 45.5 % [facility] Plt 468(H) 150 - 400 K/cumm [facility] MPV 10.6 9.1 - 12.3 fL [facility] RBC 3.49(L) 3.90 - 5.20 M/cumm [facility] MCV 83.1 81.3 - 96.4 fL [facility] MCH 25.8(L) 27.1 - 33.3 pg [facility] MCHC 31.0(L) 32.3 - 35.7 g/dL [facility] RDW CV 14.3 11.1 - 14.9 % [facility] RDW SD 43.1 35.7 - 48.1 fL [facility] NRBC abs 0.00 0.00 - 0.01 K/cumm [facility] Blood 04/11/2024 2:06 PM REGISTRAR NURSES' REGISTRY 04/11/2024 6:42 PM REGISTRAR NURSES' REGISTRY us Gato Chatterjee MD LAB BLOOD ORDERABLES Final Res ult [facility] One [facility] [place] [facility] Department [place] [address] * (ABNORMAL) Manual Differential (04/11/2024 2:06 PM REGISTRAR [facility]URS[facility] REGISTRY) Differential Manual Cells Counted 112 [facility] Neutrophil abs 0.0(C) 1.5 - 6.5 K/cumm [facility] Comment:waiting instruction assistant principal back . Critical result called to and read back by RODNEY ALBERTO RN on 04 11 2024 at 1952 to Anitha Ram. Lymphocyte abs 1.7 0.8 - 3.3 K/cumm [facility] Monocyte abs 0.7 0.2 - 0.8 K/cumm [facility] Eosinophil abs 0.5 0.0 - 0.5 K/cumm [facility] Basophil abs 0.1 0.0 - 0.1 K/cumm [facility] Neutrophil pct 0.0 % [facility] Comment: Interpretive Data Percent cell count reference ranges are not reported, since discordance with absolute values may lead to misinterpretation of CBC data. Current Interpretive Data was last revised on 2017. Lymphocyte pct 49.9 % [facility] Comment: Interpretive Data Percent cell count reference ranges are not reported, since discordance with absolute values may lead to misinterpretation of CBC data. Current Interpretive Data was last revised on 2017. Monocyte pct 24.1 % [facility] Comment: Interpretive Data Percent cell count reference ranges are not reported, since discordance with absolute values may lead to misinterpretation of CBC data. Current Interpretive Data was last revised on 2017. Eosinophil pct 15.2 % [facility] Comment: Interpretive Data Percent cell count reference ranges are not reported, since discordance with absolute values may lead to misinterpretation of CBC data. Current Interpretive Data was last revised on 2017. Basophil pct 4.5 % [facility] Comment: Interpretive Data Percent cell count reference ranges are not reported, since discordance with absolute values may lead to misinterpretation of CBC data. Current Interpretive Data was last revised on 2017. Variant lymph pct 6.3(H) 0.0 - 0.0 % [facility] Blood 04/11/2024 2:06 PM [facility] REGISTRY 04/11/2024 6:58 PM [facility] REG[facility]RY Gato Chatterjee MD LAB BLOOD ORDERABLES Final Res ult Performing Organization Address City/[facility] Co de Phone Number [facility] Department [place] [employer] [place] [address] * Creatine kinase (CK), total (04/11/2024 2:06 PM REGISTRAR NURSES' REGISTRY) Pathologist [facility] CK 35 30 - 200 Units/L Blood 04/11/2024 2:06 PM REGISTRAR NURSES' REGISTRY 04/11/2024 6:42 PM REGISTRAR NURSES' REGISTRY Result [facility] Gato Chatterjee MD LAB BLOOD ORDERABLES Final Res ult Performing Organization Address City/[facility] Co de Phone Number [facility] Department [place] [employer] [address] * eGFR (04/07/2024 2:00 PM REGISTRAR NURSES' REGISTRY) eGFR 80 >=60 mL/min/1. 73 m2 Comment: Interpretive Data Reference Interval Normal >/= 90 mL/min/1.73m2 Mildly decreased* 60 - 89 mL/min/1.73m2 Mildly to moderately decreased 45 - 59 mL/min/1.73m2 Moderately to severely decreased 30 - 44 mL/min/1.73m2 Severely decreased 15 - 29 mL/min/1.73m2 Kidney Failure < 15 mL/min/1.73m2 *Relative to young adult level Estimated glomerular filtration rate is determined by the 2020 CKD-EPI equation recommended by the National Kidney Foundation (A Unifying Approach to GFR Estimation: Recommendations of the NKF-ASK Task Force on Reassessing the Inclusion of Race in Diagnosing Kidney Disease, JASN 2020). The CKD-EPI equation should not be used for patients with unstable renal function and has not been validated in children and those over 70. Current interpretive data was last reviewed 2020. Blood 04/07/2024 2:00 PM [facility]' REGISTRY 04/07/2024 5:26 PM REGISTRAR NURSES' REGISTRY us Gato Chatterjee MD LAB BLOOD ORDERABLES Final Res ult [facility] One [facility] [place] [facility] [place] [address] * (ABNORMAL) Differential, auto (04/07/2024 2:00 PM REGISTRAR NURSES' REGISTRY) Neutrophil abs 0.7(L) 1.5 - 6.5 K/cumm Imm gran abs 0.0 0.0 - 0.1 K/cumm [facility] Lymphocyte abs 1.6 0.8 - 3.3 K/cumm [facility] Monocyte abs 1.0(H) 0.2 - 0.8 K/cumm [facility] Eosinophil abs 0.5 0.0 - 0.5 K/cumm [facility] Basophil abs 0.1 0.0 - 0.1 K/cumm [facility] Neutrophil pct 19.2 % [facility] Comment: Interpretive Data Percent cell count reference ranges are not reported, since discordance with absolute values may lead to misinterpretation of CBC data. Current Interpretive Data was last revised on 2017. Imm gran pct 0.3 % [facility] Comment: Interpretive Data Percent cell count reference ranges are not reported, since discordance with absolute values may lead to misinterpretation of CBC data. Current Interpretive Data was last revised on 2017. Lymphocyte pct 41.0 % [facility] Comment: Interpretive Data Percent cell count reference ranges are not reported, since discordance with absolute values may lead to misinterpretation of CBC data. Current Interpretive Data was last revised on 2017. Monocyte pct 25.2 % [facility] Comment: Interpretive Data Percent cell count reference ranges are not reported, since discordance with absolute values may lead to misinterpretation of CBC data. Current Interpretive Data was last revised on 2017. Eosinophil pct 12.2 % [facility] Comment: Interpretive Data Percent cell count reference ranges are not reported, since discordance with absolute values may lead to misinterpretation of CBC data. Current Interpretive Data was last revised on 2017. Basophil pct 2.1 % [facility] Comment: Interpretive Data Percent cell count reference ranges are not reported, since discordance with absolute values may lead to misinterpretation of CBC data. Current Interpretive Data was last revised on 2017. Blood 04/07/2024 2:00 PM [facility] REGISTRY 04/07/2024 4:48 PM REGISTRAR NURSES' REGISTRY us Gato Chatterjee MD LAB BLOOD ORDERABLES Final Res ult [facility] [place] [address] * (ABNORMAL) CBC with auto differential (04/07/2024 2:00 PM REGISTRAR NURSES' REGISTRY) WBC 3.9 3.8 - 9.9 K/cumm Hgb 8.1(L) 11.9 - 15.5 g/dL [facility] Hct 26.4(L) 35.6 - 45.5 % [facility] Plt 371 150 - 400 K/cumm [facility] MPV 10.6 9.1 - 12.3 fL [facility] RBC 3.14(L) 3.90 - 5.20 M/cumm [facility] MCV 84.1 81.3 - 96.4 fL [facility] MCH 25.8(L) 27.1 - 33.3 pg [facility] MCHC 30.7(L) 32.3 - 35.7 g/dL [facility] RDW CV 14.4 11.1 - 14.9 % [facility] RDW SD 43.8 35.7 - 48.1 fL [facility] NRBC abs 0.00 0.00 - 0.01 K/cumm [facility] Blood 04/07/2024 2:00 PM REGISTRAR NURSES' REGISTRY 04/07/2024 4:48 PM REGISTRAR NURSES' REGISTRY Gato Chatterjee MD LAB BLOOD ORDERABLES Final Res ult Performing Organization Address [facility] Co de Phone Number [facility] [place] [address] * Creatine kinase (CK), total (04/07/2024 2:00 PM REGISTRAR NURSES' REGISTRY) Pathologist [facility] CK 42 30 - 200 Units/L Blood 04/07/2024 2:00 PM REGISTRAR NURSES' REGISTRY 04/07/2024 4:47 PM REGISTRAR NURSES' REGISTRY Gato Chatterjee MD LAB BLOOD ORDERABLES Final Res ult Performing Organization Address [facility] de Phone Number [facility] [place] [address] * Comprehensive metabolic panel (04/07/2024 2:00 PM REGISTRAR NURSES' REGISTRY) [facility] Sodium 137 135 - 145 mmol/L Potassium, pl 4.3 3.3 - 4.9 mmol/L [facility] Chloride 102 97 - 110 mmol/L [facility] CO2 25 22 - 32 mmol/L [facility] Anion gap 10 2 - 15 mmol/L [facility] BUN 15 6 - 25 mg/dL [facility] Creatinine 0.86 0.60 - 1.10 mg/dL [facility] Glucose 95 70 - 199 mg/dL [facility] Comment: Interpretive Data Fasting glucose >/= 126 mg/dl is diagnostic for diabetes. Fasting is defined as no caloric intake for at least 8 hours. Fasting glucose between 100 mg/dl to 125 mg/dl is diagnostic of prediabetes. In a patient with classic symptoms of hyperglycemia or hyperglycemic crisis, a random glucose >/= 200 mg/dl is diagnostic for diabetes. In the absence of unequivocal hyperglycemia, results should be confirmed by repeat testing. The classification and Diagnosis of Diabetes Diabetes Care 2021; 46: S19-S40. Current interpretive data was last revised 2022. Calcium 9.0 8.5 - 10.3 mg/dL [facility] Bilirubin, total 0.2 0.1 - 1.2 mg/dL [facility] Protein, pl 6.5 6.5 - 8.5 g/dL [facility] Albumin 4.0 3.5 - 5.0 g/dL [facility] Alk phos 82 40 - 130 Units/L [facility] ALT 23 7 - 45 Units/L [facility] AST 23 10 - 45 Units/L [facility] Blood 04/07/2024 2:00 PM REGISTRAR NURSES' REGISTRY 04/07/2024 4:47 PM REGISTRAR NURSES' REGISTRY us Gato Chatterjee MD LAB BLOOD ORDERABLES Final Res ult [facility] Department [place] [address] * eGFR (04/02/2024 5:10 AM REGISTRAR NURSES' REGISTRY) eGFR >90 >=60 mL/min/1. 73 m2 Comment: Interpretive Data Reference Interval Normal >/= 90 mL/min/1.73m2 Mildly decreased* 60 - 89 mL/min/1.73m2 Mildly to moderately decreased 45 - 59 mL/min/1.73m2 Moderately to severely decreased 30 - 44 mL/min/1.73m2 Severely decreased 15 - 29 mL/min/1.73m2 Kidney Failure < 15 mL/min/1.73m2 *Relative to young adult level Estimated glomerular filtration rate is determined by the 2020 CKD-EPI equation recommended by the National Kidney Foundation (A Unifying Approach to GFR Estimation: Recommendations of the NKF-ASK Task Force on Reassessing the Inclusion of Race in Diagnosing Kidney Disease, JASN 2020). The CKD-EPI equation should not be used for patients with unstable renal function and has not been validated in children and those over 70. Current interpretive data was last reviewed 2020. Blood 04/02/2024 5:10 AM REGISTRAR NURSES' REGISTRY 04/02/2024 6:44 AM REGISTRAR NURSES' REGISTRY us Vonda Whitney NP LAB BLOOD ORDERABLES Final Result [facility] [place] [address] * (ABNORMAL) Differential, auto (04/02/2024 5:10 AM REGISTRAR NURSES' REGISTRY) Neutrophil abs 1.0(L) 1.5 - 6.5 K/cumm Imm gran abs 0.0 0.0 - 0.1 K/cumm [facility] Lymphocyte abs 0.9 0.8 - 3.3 K/cumm [facility] Monocyte abs 0.7 0.2 - 0.8 K/cumm [facility] Eosinophil abs 0.4 0.0 - 0.5 K/cumm [facility] Basophil abs 0.1 0.0 - 0.1 K/cumm [facility] Neutrophil pct 32.0 % [facility] Comment: Interpretive Data Percent cell count reference ranges are not reported, since discordance with absolute values may lead to misinterpretation of CBC data. Current Interpretive Data was last revised on 2017. Imm gran pct 1.3 % [facility] Comment: Interpretive Data Percent cell count reference ranges are not reported, since discordance with absolute values may lead to misinterpretation of CBC data. Current Interpretive Data was last revised on 2017. Lymphocyte pct 29.5 % [facility] Comment: Interpretive Data Percent cell count reference ranges are not reported, since discordance with absolute values may lead to misinterpretation of CBC data. Current Interpretive Data was last revised on 2017. Monocyte pct 23.5 % [facility] Comment: Interpretive Data Percent cell count reference ranges are not reported, since discordance with absolute values may lead to misinterpretation of CBC data. Current Interpretive Data was last revised on 2017. Eosinophil pct 12.1 % [facility] Comment: Interpretive Data Percent cell count reference ranges are not reported, since discordance with absolute values may lead to misinterpretation of CBC data. Current Interpretive Data was last revised on 2017. Basophil pct 1.6 % [facility] Comment: Interpretive Data Percent cell count reference ranges are not reported, since discordance with absolute values may lead to misinterpretation of CBC data. Current Interpretive Data was last revised on 2017. Blood 04/02/2024 5:10 AM REGISTRAR NURSES' REGISTRY 04/02/2024 6:44 AM REGISTRAR NURSES' REGISTRY Vonda Whitney NP LAB BLOOD ORDERABLES Final Result Performing Organization Address [facility] de Phone Number [facility] Department [place] [address] * (ABNORMAL) CBC with auto differential (04/02/2024 5:10 AM REGISTRAR NURSES' REGISTRY) WBC 3.2(L) 3.8 - 9.9 K/cumm Hgb 7.4(L) 11.9 - 15.5 g/dL [facility] Hct 24.4(L) 35.6 - 45.5 % [facility] Plt 336 150 - 400 K/cumm [facility] MPV 9.8 9.1 - 12.3 fL [facility] RBC 2.84(L) 3.90 - 5.20 M/cumm [facility] MCV 85.9 81.3 - 96.4 fL [facility] MCH 26.1(L) 27.1 - 33.3 pg [facility] MCHC 30.3(L) 32.3 - 35.7 g/dL [facility] RDW CV 14.4 11.1 - 14.9 % [facility] RDW SD 45.2 35.7 - 48.1 fL [facility] NRBC abs 0.00 0.00 - 0.01 K/cumm [facility] Blood 04/02/2024 5:10 AM REGISTRAR NURSES' REGISTRY 04/02/2024 6:44 AM REGISTRAR NURSES' REGISTRY Vonda Whitney NP LAB BLOOD ORDERABLES Final Result Performing Organization Address [facility]/State/ZIP Co de Phone Number [facility] [place] [address] * Basic metabolic panel (04/02/2024 5:10 AM REGISTRAR NURSES' REGISTRY) Pathologist [facility] Sodium 144 135 - 145 mmol/L Potassium, pl 4.3 3.3 - 4.9 mmol/L [facility] Chloride 105 97 - 110 mmol/L [facility] CO2 30 22 - 32 mmol/L [facility] Anion gap 9 2 - 15 mmol/L [facility] BUN 8 6 - 25 mg/dL [facility] Creatinine 0.77 0.60 - 1.10 mg/dL [facility] Glucose 89 70 - 199 mg/dL [facility] Comment: Interpretive Data Fasting glucose >/= 126 mg/dl is diagnostic for diabetes. Fasting is defined as no caloric intake for at least 8 hours. Fasting glucose between 100 mg/dl to 125 mg/dl is diagnostic of prediabetes. In a patient with classic symptoms of hyperglycemia or hyperglycemic crisis, a random glucose >/= 200 mg/dl is diagnostic for diabetes. In the absence of unequivocal hyperglycemia, results should be confirmed by repeat testing. The classification and Diagnosis of Diabetes Diabetes Care 2021; 46: S19-S40. Current interpretive data was last revised 2022. Calcium 9.0 8.5 - 10.3 mg/dL [facility] Blood 04/02/2024 5:10 AM REGISTRAR NURSES' REGISTRY 04/02/2024 6:44 AM REGISTRAR NURSES' REGISTRY Vonda Whitney NP LAB BLOOD ORDERABLES Final Result [facility] Department [place] [address] * eGFR (04/01/2024 5:46 AM REGISTRAR NURSES' REGISTRY) [facility] eGFR 90 >=60 mL/min/1. 73 m2 Comment: Interpretive Data Reference Interval Normal >/= 90 mL/min/1.73m2 Mildly decreased* 60 - 89 mL/min/1.73m2 Mildly to moderately decreased 45 - 59 mL/min/1.73m2 Moderately to severely decreased 30 - 44 mL/min/1.73m2 Severely decreased 15 - 29 mL/min/1.73m2 Kidney Failure < 15 mL/min/1.73m2 *Relative to young adult level Estimated glomerular filtration rate is determined by the 2020 CKD-EPI equation recommended by the National Kidney Foundation (A Unifying Approach to GFR Estimation: Recommendations of the NKF-ASK Task Force on Reassessing the Inclusion of Race in Diagnosing Kidney Disease, JASN 2020). The CKD-EPI equation should not be used for patients with unstable renal function and has not been validated in children and those over 70. Current interpretive data was last reviewed 2020. Blood 04/01/2024 5:46 AM REGISTRAR NURSES' REGISTRY 04/01/2024 6:45 AM REGISTRAR NURSES' REGISTRY us Vonda Whitney EXTRUSION MANAGER LAB BLOOD ORDERABLES Final Result [facility] [place] [address] * (ABNORMAL) Differential, auto (04/01/2024 5:46 AM REGISTRAR NURSES' REGISTRY) Neutrophil abs 0.8(L) 1.5 - 6.5 K/cumm Imm gran abs 0.0 0.0 - 0.1 K/cumm [facility] Lymphocyte abs 0.9 0.8 - 3.3 K/cumm [facility] Monocyte abs 0.7 0.2 - 0.8 K/cumm [facility] Eosinophil abs 0.4 0.0 - 0.5 K/cumm [facility] Basophil abs 0.0 0.0 - 0.1 K/cumm [facility] Neutrophil pct 27.8 % [facility] Comment: Interpretive Data Percent cell count reference ranges are not reported, since discordance with absolute values may lead to misinterpretation of CBC data. Current Interpretive Data was last revised on 2017. Imm gran pct 0.4 % [facility] Comment: Interpretive Data Percent cell count reference ranges are not reported, since discordance with absolute values may lead to misinterpretation of CBC data. Current Interpretive Data was last revised on 2017. Lymphocyte pct 32.4 % [facility] Comment: Interpretive Data Percent cell count reference ranges are not reported, since discordance with absolute values may lead to misinterpretation of CBC data. Current Interpretive Data was last revised on 2017. Monocyte pct 23.2 % [facility] Comment: Interpretive Data Percent cell count reference ranges are not reported, since discordance with absolute values may lead to misinterpretation of CBC data. Current Interpretive Data was last revised on 2017. Eosinophil pct 14.8 % [facility] Comment: Interpretive Data Percent cell count reference ranges are not reported, since discordance with absolute values may lead to misinterpretation of CBC data. Current Interpretive Data was last revised on 2017. Basophil pct 1.4 % [facility] Comment: Interpretive Data Percent cell count reference ranges are not reported, since discordance with absolute values may lead to misinterpretation of CBC data. Current Interpretive Data was last revised on 2017. Blood 04/01/2024 5:46 AM REGISTRAR NURSES' REGISTRY 04/01/2024 6:45 AM REGISTRAR NURSES' REGISTRY us Vonda Whitney EXTRUSION MANAGER LAB BLOOD ORDERABLES Final Result [facility] [place] [facility] Department [place] [address] * (ABNORMAL) CBC with auto differential (04/01/2024 5:46 AM REGISTRAR NURSES' REGISTRY) WBC 2.8(L) 3.8 - 9.9 K/cumm Hgb 7.2(L) 11.9 - 15.5 g/dL [facility] Hct 23.2(L) 35.6 - 45.5 % [facility] Plt 313 150 - 400 K/cumm [facility] MPV 9.9 9.1 - 12.3 fL [facility] RBC 2.75(L) 3.90 - 5.20 M/cumm [facility] MCV 84.4 81.3 - 96.4 fL [facility] MCH 26.2(L) 27.1 - 33.3 pg [facility] MCHC 31.0(L) 32.3 - 35.7 g/dL [facility] RDW CV 14.6 11.1 - 14.9 % [facility] RDW SD 44.8 35.7 - 48.1 fL [facility] NRBC abs 0.00 0.00 - 0.01 K/cumm [facility] Blood 04/01/2024 5:46 AM REGISTRAR NURSES' REGISTRY 04/01/2024 6:45 AM REGISTRAR NURSES' REGISTRY Vonda Whitney NP LAB BLOOD ORDERABLES Final Result Performing Organization Address City/[facility]/ZIP Co de Phone Number [facility] [place] [address] * (ABNORMAL) Erythrocyte sedimentation rate (04/01/2024 5:46 AM REGISTRAR NURSES' REGISTRY) [facility] Erythrocyte sedimentation rate 46(H) 1 - 30 mm/hr Blood 04/01/2024 5:46 AM REGISTRAR NURSES' REGISTRY 04/01/2024 6:45 AM REGISTRAR NURSES' REGISTRY Vonda Whitney NP LAB BLOOD ORDERABLES Final Result Performing Organization Address [facility] de Phone Number [facility] [place] [employer] [address] * Basic metabolic panel (04/01/2024 5:46 AM REGISTRAR NURSES' REGISTRY) [facility] Sodium 142 135 - 145 mmol/L Potassium, pl 4.2 3.3 - 4.9 mmol/L [facility] Chloride 107 97 - 110 mmol/L [facility] CO2 28 22 - 32 mmol/L [facility] Anion gap 7 2 - 15 mmol/L [facility] BUN 9 6 - 25 mg/dL [facility] Creatinine 0.78 0.60 - 1.10 mg/dL [facility] Glucose 86 70 - 199 mg/dL [facility] Comment: Interpretive Data Fasting glucose >/= 126 mg/dl is diagnostic for diabetes. Fasting is defined as no caloric intake for at least 8 hours. Fasting glucose between 100 mg/dl to 125 mg/dl is diagnostic of prediabetes. In a patient with classic symptoms of hyperglycemia or hyperglycemic crisis, a random glucose >/= 200 mg/dl is diagnostic for diabetes. In the absence of unequivocal hyperglycemia, results should be confirmed by repeat testing. The classification and Diagnosis of Diabetes Diabetes Care 2021; 46: S19-S40. Current interpretive data was last revised 2022. Calcium 8.5 8.5 - 10.3 mg/dL [facility] Blood 04/01/2024 5:46 AM REGISTRAR NURSES' REGISTRY 04/01/2024 6:45 AM REGISTRAR NURSES' REGISTRY us Vonda Whitney NP LAB BLOOD ORDERABLES Final Result [facility] [place] [facility] [place] [address] * (ABNORMAL) Differential, auto (04/01/2024 4:30 AM REGISTRAR NURSES' REGISTRY) Neutrophil abs 0.8(L) 1.5 - 6.5 K/cumm Imm gran abs 0.0 0.0 - 0.1 K/cumm [facility] Lymphocyte abs 0.9 0.8 - 3.3 K/cumm [facility] Monocyte abs 0.7 0.2 - 0.8 K/cumm [facility] Eosinophil abs 0.4 0.0 - 0.5 K/cumm [facility] Basophil abs 0.0 0.0 - 0.1 K/cumm [facility] Neutrophil pct 26.8 % [facility] Comment: Interpretive Data Percent cell count reference ranges are not reported, since discordance with absolute values may lead to misinterpretation of CBC data. Current Interpretive Data was last revised on 2017. Imm gran pct 0.4 % [facility] Comment: Interpretive Data Percent cell count reference ranges are not reported, since discordance with absolute values may lead to misinterpretation of CBC data. Current Interpretive Data was last revised on 2017. Lymphocyte pct 33.2 % [facility] Comment: Interpretive Data Percent cell count reference ranges are not reported, since discordance with absolute values may lead to misinterpretation of CBC data. Current Interpretive Data was last revised on 2017. Monocyte pct 23.2 % [facility] Comment: Interpretive Data Percent cell count reference ranges are not reported, since discordance with absolute values may lead to misinterpretation of CBC data. Current Interpretive Data was last revised on 2017. Eosinophil pct 15.0 % [facility] Comment: Interpretive Data Percent cell count reference ranges are not reported, since discordance with absolute values may lead to misinterpretation of CBC data. Current Interpretive Data was last revised on 2017. Basophil pct 1.4 % [facility] Comment: Interpretive Data Percent cell count reference ranges are not reported, since discordance with absolute values may lead to misinterpretation of CBC data. Current Interpretive Data was last revised on 2017. Blood 04/01/2024 4:30 AM REGISTRAR NURSES' REGISTRY 04/01/2024 6:45 AM REGISTRAR NURSES' REGISTRY Vonda Whitney EXTRUSION MANAGER LAB BLOOD ORDERABLES Final Result [facility] [place] [facility] Department [place] [address] * (ABNORMAL) CBC with auto differential (04/01/2024 4:30 AM REGISTRAR NURSES' REGISTRY) WBC 2.8(L) 3.8 - 9.9 K/cumm Hgb 7.3(L) 11.9 - 15.5 g/dL [facility] Hct 23.3(L) 35.6 - 45.5 % [facility] Plt 318 150 - 400 K/cumm [facility] MPV 9.8 9.1 - 12.3 fL [facility] RBC 2.76(L) 3.90 - 5.20 M/cumm [facility] MCV 84.4 81.3 - 96.4 fL [facility] MCH 26.4(L) 27.1 - 33.3 pg [facility] MCHC 31.3(L) 32.3 - 35.7 g/dL [facility] RDW CV 14.6 11.1 - 14.9 % [facility] RDW SD 45.0 35.7 - 48.1 fL [facility] NRBC abs 0.00 0.00 - 0.01 K/cumm [facility] Blood 04/01/2024 4:30 AM REGISTRAR NURSES' REGISTRY 04/01/2024 6:45 AM REGISTRAR NURSES' REGISTRY Vonda Whitney NP LAB BLOOD ORDERABLES Final Result Performing Organization Address [facility] de Phone Number [facility] [employer] [address] * (ABNORMAL) Hemoglobin and hematocrit (03/31/2024 11:48 AM REGISTRAR NURSES' REGISTRY) [facility] Hgb 7.4(L) 11.9 - 15.5 g/dL Hct 24.0(L) 35.6 - 45.5 % [facility] Blood 03/31/2024 11:4 8 AM REGISTRAR NURSES' REGISTRY 03/31/2024 12:01 PM REGISTRAR NURSES' REGISTRY Narrative [facility] - 03/31/2024 12:08 PM REGISTRAR NURSES' REGISTRY Please obtain 1 hour after RBC complete Vonda Whitney NP LAB BLOOD ORDERABLES Final Result Performing Organization Address [facility] de Phone Number [facility] [place] [address] * Transfuse RBC (03/31/2024 9:41 AM REGISTRAR NURSES' REGISTRY) Blood Efrain Iglesias MD BLOOD TRANSFUSION OR DERABLES Final Result Performing Organization Address [facility] Co de Phone Number [facility] [employer] [address] * Prepare RBC: 1 Units (03/31/2024 6:05 AM REGISTRAR NURSES' REGISTRY) Pathologist [facility] Product code [id number] Unit Number [id number] [facility] Product Blood Type APOS [facility] Dispense Status PRESUMED TRANSFUSED [facility] Blood 03/31/2024 6:05 AM REGISTRAR NURSES' REGISTRY 03/31/2024 6:04 AM REGISTRAR NURSES' REGISTRY Narrative [facility] - 03/31/2024 8:00 PM REGISTRAR NURSES' REGISTRY Are special requirements needed? (All products are leukoreduced and CMV- safe)- >No Date required:-[id number] LRRBC # of [id number] Reasons:-Hgb <7 g/dL} us Efrain Iglesias MD BLOOD BANK PRODUCT O RDERABLES Final Result Performing Organization Address City/[facility]/ZIP Co de Phone Number [facility] [place] [employer] [place] [address] * eGFR (03/31/2024 6:04 AM REGISTRAR NURSES' REGISTRY) eGFR 75 >=60 mL/min/1. 73 m2 Comment: Interpretive Data Reference Interval Normal >/= 90 mL/min/1.73m2 Mildly decreased* 60 - 89 mL/min/1.73m2 Mildly to moderately decreased 45 - 59 mL/min/1.73m2 Moderately to severely decreased 30 - 44 mL/min/1.73m2 Severely decreased 15 - 29 mL/min/1.73m2 Kidney Failure < 15 mL/min/1.73m2 *Relative to young adult level Estimated glomerular filtration rate is determined by the 2020 CKD-EPI equation recommended by the National Kidney Foundation (A Unifying Approach to GFR Estimation: Recommendations of the NKF-ASK Task Force on Reassessing the Inclusion of Race in Diagnosing Kidney Disease, JASN 2020). The CKD-EPI equation should not be used for patients with unstable renal function and has not been validated in children and those over 70. Current interpretive data was last reviewed 2020. Blood 03/31/2024 6:04 AM REGISTRAR NURSES' REGISTRY 03/31/2024 6:21 AM REGISTRAR NURSES' REGISTRY us Vonda Whitney NP LAB BLOOD ORDERABLES Final Result Performing Organization Address City/[facility]/ZIP Co de Phone Number [facility] [place] [address] * (ABNORMAL) Erythrocyte sedimentation rate (03/31/2024 6:04 AM REGISTRAR NURSES' REGISTRY) [facility] Erythrocyte sedimentation rate 84(H) 1 - 30 mm/hr Blood 03/31/2024 6:04 AM REGISTRAR NURSES' REGISTRY 03/31/2024 6:28 AM REGISTRAR NURSES' REGISTRY Efrain Iglesias MD LAB BLOOD ORDERABLES Final Result Performing Organization Address City/[facility]/ZIP Co de Phone Number [facility] Department of [place] [address] * (ABNORMAL) CBC without differential (03/31/2024 6:04 AM REGISTRAR NURSES' REGISTRY) [facility] WBC 3.2(L) 3.8 - 9.9 K/cumm Hgb 6.3(C) 11.9 - 15.5 g/dL [facility] Comment:Consistent with prev ious results Hct 21.5(L) 35.6 - 45.5 % [facility] Plt 315 150 - 400 K/cumm [facility] MPV 9.5 9.1 - 12.3 fL [facility] RBC 2.47(L) 3.90 - 5.20 M/cumm [facility] MCV 87.0 81.3 - 96.4 fL [facility] MCH 25.5(L) 27.1 - 33.3 pg [facility] MCHC 29.3(L) 32.3 - 35.7 g/dL [facility] RDW CV 14.4 11.1 - 14.9 % [facility] RDW SD 45.4 35.7 - 48.1 fL [facility] NRBC abs 0.00 0.00 - 0.01 K/cumm [facility] Blood 03/31/2024 6:04 AM REGISTRAR NURSES' REGISTRY 03/31/2024 6:21 AM REGISTRAR NURSES' REGISTRY Vonda Whitney NP LAB BLOOD ORDERABLES Final Result Performing Organization Address City/[facility]/ZIP Co de Phone Number [facility] [place] [address] * (ABNORMAL) CRP (acute phase) (03/31/2024 6:04 AM REGISTRAR NURSES' REGISTRY) [facility] CRP 25.4(H) <=10.0 mg/L Blood 03/31/2024 6:04 AM REGISTRAR NURSES' REGISTRY 03/31/2024 6:21 AM REGISTRAR NURSES' REGISTRY Efrain Iglesias MD LAB BLOOD ORDERABLES Final Result Performing Organization Address [facility] Co de Phone Number [facility] [place] [address] * Creatine kinase (CK), total (03/31/2024 6:04 AM REGISTRAR NURSES' REGISTRY) [facility] CK 119 30 - 200 Units/L Blood 03/31/2024 6:04 AM REGISTRAR NURSES' REGISTRY 03/31/2024 6:21 AM REGISTRAR NURSES' REGISTRY Efrain Iglesias MD LAB BLOOD ORDERABLES Final Result Performing Organization Address [facility] [place] [address] * (ABNORMAL) Basic metabolic panel (03/31/2024 6:04 AM REGISTRAR NURSES' REGISTRY) [facility] Sodium 143 135 - 145 mmol/L Potassium, pl 4.1 3.3 - 4.9 mmol/L [facility] Chloride 109 97 - 110 mmol/L [facility] CO2 26 22 - 32 mmol/L [facility] Anion gap 8 2 - 15 mmol/L [facility] BUN 11 6 - 25 mg/dL [facility] Creatinine 0.91 0.60 - 1.10 mg/dL [facility] Glucose 93 70 - 199 mg/dL [facility] Comment: Interpretive Data Fasting glucose >/= 126 mg/dl is diagnostic for diabetes. Fasting is defined as no caloric intake for at least 8 hours. Fasting glucose between 100 mg/dl to 125 mg/dl is diagnostic of prediabetes. In a patient with classic symptoms of hyperglycemia or hyperglycemic crisis, a random glucose >/= 200 mg/dl is diagnostic for diabetes. In the absence of unequivocal hyperglycemia, results should be confirmed by repeat testing. The classification and Diagnosis of Diabetes Diabetes Care 2021; 46: S19-S40. Current interpretive data was last revised 2022. Calcium 8.1(L) 8.5 - 10.3 mg/dL [facility] Blood 03/31/2024 6:04 AM REGISTRAR NURSES' REGISTRY 03/31/2024 6:21 AM REGISTRAR NURSES' REGISTRY Vonda Whitney NP LAB BLOOD ORDERABLES Final Result [facility] [place] [facility] [place] [address] * eGFR (03/31/2024 5:21 AM REGISTRAR NURSES' REGISTRY) eGFR 74 >=60 mL/min/1. 73 m2 Comment: Interpretive Data Reference Interval Normal >/= 90 mL/min/1.73m2 Mildly decreased* 60 - 89 mL/min/1.73m2 Mildly to moderately decreased 45 - 59 mL/min/1.73m2 Moderately to severely decreased 30 - 44 mL/min/1.73m2 Severely decreased 15 - 29 mL/min/1.73m2 Kidney Failure < 15 mL/min/1.73m2 *Relative to young adult level Estimated glomerular filtration rate is determined by the 2020 CKD-EPI equation recommended by the National Kidney Foundation (A Unifying Approach to GFR Estimation: Recommendations of the NKF-ASK Task Force on Reassessing the Inclusion of Race in Diagnosing Kidney Disease, JASN 2020). The CKD-EPI equation should not be used for patients with unstable renal function and has not been validated in children and those over 70. Current interpretive data was last reviewed 2020. Blood 03/31/2024 5:21 AM REGISTRAR NURSES' REGISTRY 03/31/2024 5:41 AM REGISTRAR NURSES' REGISTRY Vonda Whitney NP LAB BLOOD ORDERABLES Final Result [facility] [place] [facility] Department [place] [address] * (ABNORMAL) Differential, auto (03/31/2024 5:21 AM REGISTRAR NURSES' REGISTRY) Neutrophil abs 1.0(L) 1.5 - 6.5 K/cumm Imm gran abs 0.0 0.0 - 0.1 K/cumm [facility] Lymphocyte abs 0.9 0.8 - 3.3 K/cumm [facility] Monocyte abs 0.8 0.2 - 0.8 K/[facility] Eosinophil abs 0.4 0.0 - 0.5 K/cumm [facility] Basophil abs 0.0 0.0 - 0.1 K/cumm [facility] Neutrophil pct 31.5 % [facility] Comment: Interpretive Data Percent cell count reference ranges are not reported, since discordance with absolute values may lead to misinterpretation of CBC data. Current Interpretive Data was last revised on 2017. Imm gran pct 0.6 % [facility] Comment: Interpretive Data Percent cell count reference ranges are not reported, since discordance with absolute values may lead to misinterpretation of CBC data. Current Interpretive Data was last revised on 2017. Lymphocyte pct 29.0 % [facility] Comment: Interpretive Data Percent cell count reference ranges are not reported, since discordance with absolute values may lead to misinterpretation of CBC data. Current Interpretive Data was last revised on 2017. Monocyte pct 23.7 % [facility] Comment: Interpretive Data Percent cell count reference ranges are not reported, since discordance with absolute values may lead to misinterpretation of CBC data. Current Interpretive Data was last revised on 2017. Eosinophil pct 13.9 % [facility] Comment: Interpretive Data Percent cell count reference ranges are not reported, since discordance with absolute values may lead to misinterpretation of CBC data. Current Interpretive Data was last revised on 2017. Basophil pct 1.3 % [facility] Comment: Interpretive Data Percent cell count reference ranges are not reported, since discordance with absolute values may lead to misinterpretation of CBC data. Current Interpretive Data was last revised on 2017. Blood 03/31/2024 5:21 AM REGISTRAR NURSES' REGISTRY 03/31/2024 5:41 AM REGISTRAR NURSES' REGISTRY Vonda Whitney NP LAB BLOOD ORDERABLES Final Result Performing Organization Address City/[facility]/ZIP Co de Phone Number [facility] [place] [address] * (ABNORMAL) CBC with auto differential (03/31/2024 5:21 AM REGISTRAR NURSES' REGISTRY) WBC 3.2(L) 3.8 - 9.9 K/cumm Hgb 6.2(C) 11.9 - 15.5 g/dL [facility] Comment:Critical result call ed to and read back by YUKI WARE RN on 03 31 2024 at 0557 to [facility]. Hct 20.6(L) 35.6 - 45.5 % [facility] Plt 329 150 - 400 K/cumm [facility] MPV 9.6 9.1 - 12.3 fL [facility] RBC 2.41(L) 3.90 - 5.20 M/cumm [facility] MCV 85.5 81.3 - 96.4 fL [facility] MCH 25.7(L) 27.1 - 33.3 pg [facility] MCHC 30.1(L) 32.3 - 35.7 g/dL [facility] RDW CV 14.6 11.1 - 14.9 % [facility] RDW SD 45.3 35.7 - 48.1 fL [facility] NRBC abs 0.00 0.00 - 0.01 K/cumm [facility] Blood 03/31/2024 5:21 AM REGISTRAR NURSES' REGISTRY 03/31/2024 5:41 AM REGISTRAR NURSES' REGISTRY Vonda Whitney NP LAB BLOOD ORDERABLES Final Result Performing Organization Address [facility]/ZIP Co de Phone Number [facility] [place] [address] * (ABNORMAL) Basic metabolic panel (03/31/2024 5:21 AM REGISTRAR NURSES' REGISTRY) Sodium 142 135 - 145 mmol/L Potassium, pl 4.3 3.3 - 4.9 mmol/L [facility] Chloride 109 97 - 110 mmol/L [facility] CO2 26 22 - 32 mmol/L [facility] Anion gap 7 2 - 15 mmol/L [facility] BUN 11 6 - 25 mg/dL [facility] Creatinine 0.92 0.60 - 1.10 mg/dL [facility] Glucose 90 70 - 199 mg/dL [facility] Comment: Interpretive Data Fasting glucose >/= 126 mg/dl is diagnostic for diabetes. Fasting is defined as no caloric intake for at least 8 hours. Fasting glucose between 100 mg/dl to 125 mg/dl is diagnostic of prediabetes. In a patient with classic symptoms of hyperglycemia or hyperglycemic crisis, a random glucose >/= 200 mg/dl is diagnostic for diabetes. In the absence of unequivocal hyperglycemia, results should be confirmed by repeat testing. The classification and Diagnosis of Diabetes Diabetes Care 2021; 46: S19-S40. Current interpretive data was last revised 2022. Calcium 8.1(L) 8.5 - 10.3 mg/dL [facility] Blood 03/31/2024 5:21 AM REGISTRAR NURSES' REGISTRY 03/31/2024 5:41 AM REGISTRAR NURSES' REGISTRY us Vonda Whitney NP LAB BLOOD ORDERABLES Final Result [facility] [place] [facility] [place] [address] * XR Ankle Right 3 or More Views (03/30/2024 2:50 PM REGISTRAR NURSES' REGISTRY) Anatomical Region Laterality Modality Lower Extremities, Ankle Right Compute d Radiography 03/30/2024 3:20 PM REGISTRAR NURSES' REGISTRY Impressions 03/30/2024 3:20 PM REGISTRAR NURSES' REGISTRY 1. Moderate soft tissue swelling around the ankle without fracture. 2. Mild thickening of the right Achilles tendon may represent Achilles tendinopathy. Electronically signed by: Marcio Gillespie D.O. Narrative 03/30/2024 3:20 PM REGISTRAR NURSES' REGISTRY EXAMINATION: XR ANKLE RIGHT 3 OR MORE VIEWS HISTORY: pain COMPARISON: 01/28/2024 FINDINGS: No acute fracture or dislocation. The ankle mortise and talar dome are intact. Mild midfoot osteoarthritis. Mild thickening of the Achilles tendon. Moderate soft tissue swelling around the ankle. Procedure Note Marcio Gillespie DO - 03/30/2024 EXAMINATION: XR ANKLE RIGHT 3 OR MORE VIEWS HISTORY: pain COMPARISON: 01/28/2024 FINDINGS: No acute fracture or dislocation. The ankle mortise and talar dome are intact. Mild midfoot osteoarthritis. Mild thickening of the Achilles tendon. Moderate soft tissue swelling around the ankle. IMPRESSION: 1. Moderate soft tissue swelling around the ankle without fracture. 2. Mild thickening of the right Achilles tendon may represent Achilles tendinopathy. Electronically signed by: Marcio Gillespie D.O. Vonda Whitney EXTRUSION MANAGER IMG XR PROCEDURES Final Re sult * eGFR (03/30/2024 12:44 PM REGISTRAR NURSES' REGISTRY) eGFR 86 >=60 mL/min/1. 73 m2 Comment: Interpretive Data Reference Interval Normal >/= 90 mL/min/1.73m2 Mildly decreased* 60 - 89 mL/min/1.73m2 Mildly to moderately decreased 45 - 59 mL/min/1.73m2 Moderately to severely decreased 30 - 44 mL/min/1.73m2 Severely decreased 15 - 29 mL/min/1.73m2 Kidney Failure < 15 mL/min/1.73m2 *Relative to young adult level Estimated glomerular filtration rate is determined by the 2020 CKD-EPI equation recommended by the National Kidney Foundation (A Unifying Approach to GFR Estimation: Recommendations of the NKF-ASK Task Force on Reassessing the Inclusion of Race in Diagnosing Kidney Disease, JASN 2020). The CKD-EPI equation should not be used for patients with unstable renal function and has not been validated in children and those over 70. Current interpretive data was last reviewed 2020. Blood 03/30/2024 12:4 4 PM REGISTRAR NURSES' REGISTRY 03/30/2024 1:00 PM REGISTRAR NURSES' REGISTRY Vonda Whitney NP LAB BLOOD ORDERABLES Final Result Performing Organization Address [facility] Co de Phone Number [facility] [place] [address] * (ABNORMAL) CRP (acute phase) (03/30/2024 12:44 PM REGISTRAR NURSES' REGISTRY) [facility] CRP 28.7(H) <=10.0 mg/L Blood 03/30/2024 12:4 4 PM REGISTRAR NURSES' REGISTRY 03/30/2024 12:55 PM REGISTRAR NURSES' REGISTRY Vonda Whitney NP LAB BLOOD ORDERABLES Final Result Performing Organization Address [facility] de Phone Number [facility] [place] [address] * Vancomycin level trough (03/30/2024 12:44 PM REGISTRAR NURSES' REGISTRY) [facility] Vancomycin trough 18.9 10.0 - 20.0 mcg/mL Blood 03/30/2024 12:4 4 PM REGISTRAR NURSES' REGISTRY 03/30/2024 12:55 PM REGISTRAR NURSES' REGISTRY Efrain Iglesias MD LAB BLOOD ORDERABLES Final Result Performing Organization Address [facility] [place] [address] * (ABNORMAL) Basic metabolic panel (03/30/2024 12:44 PM REGISTRAR NURSES' REGISTRY) [facility] Sodium 142 135 - 145 mmol/L Potassium, pl 4.1 3.3 - 4.9 mmol/L [facility] Chloride 107 97 - 110 mmol/L [facility] CO2 27 22 - 32 mmol/L [facility] Anion gap 8 2 - 15 mmol/L [facility] BUN 9 6 - 25 mg/dL [facility] Creatinine 0.81 0.60 - 1.10 mg/dL [facility] Glucose 138 70 - 199 mg/dL [facility] Comment: Interpretive Data Fasting glucose >/= 126 mg/dl is diagnostic for diabetes. Fasting is defined as no caloric intake for at least 8 hours. Fasting glucose between 100 mg/dl to 125 mg/dl is diagnostic of prediabetes. In a patient with classic symptoms of hyperglycemia or hyperglycemic crisis, a random glucose >/= 200 mg/dl is diagnostic for diabetes. In the absence of unequivocal hyperglycemia, results should be confirmed by repeat testing. The classification and Diagnosis of Diabetes Diabetes Care 2021; 46: S19-S40. Current interpretive data was last revised 2022. Calcium 8.1(L) 8.5 - 10.3 mg/dL [facility] Blood 03/30/2024 12:4 4 PM REGISTRAR NURSES' REGISTRY 03/30/2024 12:55 PM REGISTRAR NURSES' REGISTRY Vonda Whitney NP LAB BLOOD ORDERABLES Final Result [facility] [place] [facility] [place] [address] * eGFR (03/29/2024 5:33 AM REGISTRAR NURSES' REGISTRY) eGFR >90 >=60 mL/min/1. 73 m2 Comment: Interpretive Data Reference Interval Normal >/= 90 mL/min/1.73m2 Mildly decreased* 60 - 89 mL/min/1.73m2 Mildly to moderately decreased 45 - 59 mL/min/1.73m2 Moderately to severely decreased 30 - 44 mL/min/1.73m2 Severely decreased 15 - 29 mL/min/1.73m2 Kidney Failure < 15 mL/min/1.73m2 *Relative to young adult level Estimated glomerular filtration rate is determined by the 2020 CKD-EPI equation recommended by the National Kidney Foundation (A Unifying Approach to GFR Estimation: Recommendations of the NKF-ASK Task Force on Reassessing the Inclusion of Race in Diagnosing Kidney Disease, JASN 2020). The CKD-EPI equation should not be used for patients with unstable renal function and has not been validated in children and those over 70. Current interpretive data was last reviewed 2020. Blood 03/29/2024 5:33 AM REGISTRAR NURSES' REGISTRY 03/29/2024 5:51 AM REGISTRAR NURSES' REGISTRY Nikkie Anderson MD LAB BLOOD ORDERABLES F inal Result Performing Organization Address [facility]/ZIP Co de Phone Number [facility] Department [place] [employer] [place] [address] * (ABNORMAL) CBC without differential (03/29/2024 5:33 AM REGISTRAR NURSES' REGISTRY) [facility] WBC 5.1 3.8 - 9.9 K/cumm Hgb 7.6(L) 11.9 - 15.5 g/dL [facility] Hct 24.6(L) 35.6 - 45.5 % [facility] Plt 341 150 - 400 K/cumm [facility] MPV 9.5 9.1 - 12.3 fL [facility] RBC 2.93(L) 3.90 - 5.20 M/cumm [facility] MCV 84.0 81.3 - 96.4 fL [facility] MCH 25.9(L) 27.1 - 33.3 pg [facility] MCHC 30.9(L) 32.3 - 35.7 g/dL [facility] RDW CV 14.1 11.1 - 14.9 % [facility] RDW SD 43.8 35.7 - 48.1 fL [facility] NRBC abs 0.00 0.00 - 0.01 K/cumm [facility] Blood 03/29/2024 5:33 AM REGISTRAR NURSES' REGISTRY 03/29/2024 5:51 AM REGISTRAR NURSES' REGISTRY Nikkie Anderson MD LAB BLOOD ORDERABLES F inal Result Performing Organization Address City/[facility]/ZIP Co de Phone Number [facility] Department [place] [address] * (ABNORMAL) Basic metabolic panel (03/29/2024 5:33 AM REGISTRAR NURSES' REGISTRY) [facility] Sodium 141 135 - 145 mmol/L Potassium, pl 4.7 3.3 - 4.9 mmol/L [facility] Chloride 108 97 - 110 mmol/L [facility] CO2 25 22 - 32 mmol/L [facility] Anion gap 8 2 - 15 mmol/L [facility] BUN 10 6 - 25 mg/dL [facility] Creatinine 0.72 0.60 - 1.10 mg/dL [facility] Glucose 149 70 - 199 mg/dL [facility] Comment: Interpretive Data Fasting glucose >/= 126 mg/dl is diagnostic for diabetes. Fasting is defined as no caloric intake for at least 8 hours. Fasting glucose between 100 mg/dl to 125 mg/dl is diagnostic of prediabetes. In a patient with classic symptoms of hyperglycemia or hyperglycemic crisis, a random glucose >/= 200 mg/dl is diagnostic for diabetes. In the absence of unequivocal hyperglycemia, results should be confirmed by repeat testing. The classification and Diagnosis of Diabetes Diabetes Care 202; 46: S19-S40. Current interpretive data was last revised 2022. Calcium 8.2(L) 8.5 - 10.3 mg/dL [facility] Blood 03/29/2024 5:33 AM REGISTRAR NURSES' REGISTRY 03/29/2024 5:51 AM REGISTRAR NURSES' REGISTRY us Nikkie Anderson MD LAB BLOOD ORDERABLES F inal Result [facility] [place] [facility] Department [place] [address] * XR Knee Right 1 or 2 View (03/28/2024 4:21 PM REGISTRAR NURSES' REGISTRY) Anatomical Region Laterality Modality Lower Extremities, Knee Right Computed Radiography 03/28/2024 4:42 PM REGISTRAR NURSES' REGISTRY Impressions 03/28/2024 4:42 PM REGISTRAR NURSES' REGISTRY Interval revision 2 component right knee arthroplasty in near anatomic position. Electronically signed by: Faraz Maier MD Narrative 03/28/2024 4:42 PM REGISTRAR NURSES' REGISTRY EXAMINATION: XR KNEE RIGHT 1 OR 2 VIEWS HISTORY: Right knee revision arthroplasty FINDINGS: Comparison dated 02/04/2024. Interval revision 2 component right knee arthroplasty in near anatomic position. No periprosthetic fracture. Soft tissue gas is present. Right knee joint effusion. Moderate soft tissue swelling. Surgical clips are present. Procedure Note Faraz Maier MD - 03/28/2024 EXAMINATION: XR KNEE RIGHT 1 OR 2 VIEWS HISTORY: Right knee revision arthroplasty FINDINGS: Comparison dated 02/04/2024. Interval revision 2 component right knee arthroplasty in near anatomic position. No periprosthetic fracture. Soft tissue gas is present. Right knee joint effusion. Moderate soft tissue swelling. Surgical clips are present. IMPRESSION: Interval revision 2 component right knee arthroplasty in near anatomic position. Electronically signed by: Faraz Maier MD us Trey Sanchez MD IMG XR PROCEDURES Final R esult * Tissue aerobic and anaerobic culture and gram stain Tissue Knee, right (03/28/2024 12:54 PM REGISTRAR NURSES' REGISTRY) Direct Specimen Exam Stain: No polymorphonuclear leukocytes seen. No organisms seen. Report Final Report: No growth [facility] Tissue (Knee, right) 03/28/2024 12:54 PM REGISTRAR NURSES' REGISTRY 03/28/2024 2:11 PM REGISTRAR NURSES' REGISTRY Narrative [facility] - 04/02/2024 1:11 PM REGISTRAR NURSES' REGISTRY DEEP TISSUE #2 Testing performed by [facility] ([phone]) Specimens submitted from normally sterile body sites will have all bacterial morphotypes identified. Specimens that contain grossly mixed danitza and/or are from body sites that are not normally sterile will be examined for Staphylococcus aureus, Pseudomonas aeruginosa, beta-hemolytic strep, vancomycin-resistant Enterococcus, Bacteroides, Parabacteroides, Clostridium perfringens and fungus. If any of these are isolated, the organism will be reported. Current interpretive data was last revised on 2019. us Efrain Iglesias MD LAB MICROBIOLOGY - G ENERAL ORDERABLES Final Result [facility] [place] [facility] [place] [address] * Mycology (fungal) culture and stain Tissue Knee, right (03/28/2024 12:54 PM REGISTRAR NURSES' REGISTRY) Direct Specimen Exam Stain: No Fungal elements seen. Report Final Report: No growth of fungus [facility] Tissue (Knee, right) 03/28/2024 12:54 PM REGISTRAR NURSES' REGISTRY 03/28/2024 2:11 PM REGISTRAR NURSES' REGISTRY Narrative [facility] - 04/25/2024 7:57 AM CDT DEEP TISSUE #2 Testing performed by [facility] ([phone]). Efrain Iglesias MD LAB MICROBIOLOGY - G ENERAL ORDERABLES Final Result Performing Organization Address [facility] Co de Phone Number [facility] Department [place] [address] * Tissue aerobic and anaerobic culture and gram stain Tissue Knee, right (03/28/2024 12:49 PM REGISTRAR NURSES' REGISTRY) Direct Specimen Exam Stain: No polymorphonuclear leukocytes seen. No organisms seen. Report Final Report: No growth [facility] Tissue (Knee, right) 03/28/2024 12:49 PM REGISTRAR NURSES' REGISTRY 03/28/2024 2:10 PM REGISTRAR NURSES' REGISTRY Narrative [facility] - 04/02/2024 1:12 PM REGISTRAR NURSES' REGISTRY Deep tissue Testing performed by [facility] ([phone]) Specimens submitted from normally sterile body sites will have all bacterial morphotypes identified. Specimens that contain grossly mixed danitza and/or are from body sites that are not normally sterile will be examined for Staphylococcus aureus, Pseudomonas aeruginosa, beta-hemolytic strep, vancomycin-resistant Enterococcus, Bacteroides, Parabacteroides, Clostridium perfringens and fungus. If any of these are isolated, the organism will be reported. Current interpretive data was last revised on 2019. Efrain Iglesias MD LAB MICROBIOLOGY - G ENERAL ORDERABLES Final Result Performing Organization Address City/[facility]/ZIP Co de Phone Number [facility] Department [place] [address] * Mycology (fungal) culture Tissue Knee, right (03/28/2024 12:49 PM REGISTRAR NURSES' REGISTRY) Report Final Report: No growth of fungus Tissue (Knee, right) 03/28/2024 12:49 PM [facility]RAR NURSES' REGISTRY 03/28/2024 2:10 PM REGISTRAR NURSES' REGISTRY Narrative [facility] - 04/25/2024 7:57 AM CDT Deep tissue Testing performed by [facility] ([phone]). Efrain Iglesias MD LAB MICROBIOLOGY - G ENERAL ORDERABLES Final Result Performing Organization Address City/[facility]/ZIP Co de Phone Number [facility] [place] [address] * Mycology (fungal) culture Synovial fluid Knee, right (03/28/2024 12:48 PM [facility]) Report Final Report: No growth of fungus Synovial fluid (Knee, right) 03/28/2024 12:48 PM [facility] 03/28/2024 2:11 PM [facility] Narrative [facility] - 04/25/2024 7:57 AM CDT Right knee fluid Testing performed by [facility] ([phone]). Efrain Iglesias MD LAB MICROBIOLOGY - G ENERAL ORDERABLES Final Result [facility] [place] [address] * Aerobic and anaerobic culture and gram stain Synovial fluid Knee, right (03/28/2024 12:48 PM [facility]) Direct Specimen Exam Stain: Cytospin Gram stain shows: Few polymorphonuclear leukocytes seen. Red blood cells present. Other cellular material present. No organisms seen. Report Final Report: No growth [facility] Synovial fluid (Knee, right) 03/28/2024 12:48 PM [facility] 03/28/2024 2:11 PM [facility] Narrative [facility] - 04/02/2024 1:10 PM [facility] Right knee fluid Testing performed by [facility] ([phone]) Specimens submitted from normally sterile body sites will have all bacterial morphotypes identified. Specimens that contain grossly mixed danitza and/or are from body sites that are not normally sterile will be examined for Staphylococcus aureus, Pseudomonas aeruginosa, beta-hemolytic strep, vancomycin-resistant Enterococcus, Bacteroides, Parabacteroides, Clostridium perfringens and fungus. If any of these are isolated, the organism will be reported. Current interpretive data was last revised on 2019. Efrain Iglesias MD LAB MICROBIOLOGY - G ENERAL ORDERABLES Final Result Performing Organization Address [facility] Co de Phone Number [facility] Department [place] [address] * Crystal Analysis, Body Fluid (03/28/2024 11:43 AM [facility]) Specimen type, fld Synovial Crystals None Seen None Seen [facility] Fluid 03/28/2024 11:4 3 AM [facility] 03/28/2024 3:53 PM [facility] Efrain Iglesias MD LAB BODY FLUIDS AND STOOLS ORDERABLES Final Result Performing Organization Address [facility] Co de Phone Number [facility] Department [place] [address] * Cell Differential, Body Fluid (03/28/2024 11:43 AM [facility]) Total cells diffed 100 cells Comment: Interpretive Data Unless otherwise specified, the reference range and other method performance specifications have not been established for CSF/Body Fluid tests. The test results should be integrated into the clinical context for interpretation. Current interpretive data was last revised on 2018. Neutrophils, fld 55 % [facility] Lymphs, fld 35 % [facility] Monocyte, fld 8 % [facility] Eosinophils, fld 2 % [facility] Fluid 03/28/2024 11:4 3 AM [facility] 03/28/2024 3:53 PM [facility] Efrain Iglesias MD LAB BODY FLUIDS AND STOOLS ORDERABLES Final Result Performing Organization Address [facility] de Phone Number [facility] [place] [address] * (ABNORMAL) Cell count w/rflx diff, body fluid (03/28/2024 11:43 AM [facility]) Specimen type, fld Synovial Color, fld Red [facility] Clarity, fld Turbid(A) Clear [facility] Nucleated cells, fld 1,140 /cumm [facility] Comment: Interpretive Data Unless otherwise specified, the reference range and other method performance specifications have not been established for CSF/Body Fluid tests. The test results should be integrated into the clinical context for interpretation. Current interpretive data was last revised on 2018. RBC, fld >800,000 /cumm [facility] Fluid 03/28/2024 11:4 3 AM [facility] 03/28/2024 3:53 PM [facility] Narrative [facility] - 03/29/2024 12:54 AM [facility] Specify:->R ankle Efrain Iglesias MD LAB BODY FLUIDS AND STOOLS ORDERABLES Final Result Performing Organization Address [facility] de Phone Number [facility] [place] [address] * Mycology (fungal) culture Synovial fluid Ankle, right (03/28/2024 11:43 AM [facility]) Report Final Report: No growth of fungus Synovial fluid (Ankle, right) 03/28/2024 11:43 AM [facility] 03/28/2024 2:47 PM [facility] Narrative [facility] - 04/25/2024 7:59 AM CDT Testing performed by [facility] ([phone]). Efrain Iglesias MD LAB MICROBIOLOGY - ENERAL ORDERABLES Final Result Performing Organization Address [facility] de Phone Number [facility] [place] [facility] Department [place] [address] * Aerobic and anaerobic culture and gram stain Synovial fluid Ankle, right (03/28/2024 11:43 AM [facility]) Direct Specimen Exam Stain: Cytospin Gram stain shows: Rare polymorphonuclear leukocytes seen. Other cellular material present. No organisms seen. Report Final Report: No growth [facility] Synovial fluid (Ankle, right) 03/28/2024 11:43 AM [facility] 03/28/2024 2:47 PM [facility] Narrative [facility] - 04/03/2024 12:03 PM [facility] Testing performed by [facility] ([phone]) Specimens submitted from normally sterile body sites will have all bacterial morphotypes identified. Specimens that contain grossly mixed danitza and/or are from body sites that are not normally sterile will be examined for Staphylococcus aureus, Pseudomonas aeruginosa, beta-hemolytic strep, vancomycin-resistant Enterococcus, Bacteroides, Parabacteroides, Clostridium perfringens and fungus. If any of these are isolated, the organism will be reported. Current interpretive data was last revised on 2019. Efrain Iglesias MD LAB MICROBIOLOGY - G ENERAL ORDERABLES Final Result Performing Organization Address [facility] de Phone Number [facility] [place] [facility] Department [place] [address] * RI AN PROCEDURE PLACEHOLDER (03/28/2024 11:24 AM [facility]) Narrative Cecilio Salmeron RN - 03/28/2024 11:24 AM [facility] Cecilio Salmeron RN 03/28/2024 11:25 AM Peripheral IV Catheter Patient location: OR Staff: Supervising provider: Octavio Olguin MD Placed by: Other staff: Cecilio Salmeron RN Preprocedure prep: Prep solution: chlorhexadine PPE: gloves and provider hat/mask PIV line: Laterality: right Site: hand Catheter size: 18 g Technique: direct visualization Procedure details: good blood return and occlusive dressing applied Number of attempts: 2 Assessment: Events: patient tolerated procedure well with no complications Octavio Olguin MD ANESTHESIA ORDERABLES Final Result * RI AN ELECTIVE ENDOTRACHEAL AIRWAY, RI AN PROCEDURE PLACEHOLDER (03/28/2024 11:22 AM [facility]) Narrative Cecilio Salmeron RN - 03/28/2024 11:22 AM [facility] Cecilio Salmeron RN 03/28/2024 11:24 AM Airway Patient location: OR Urgency: elective Indications for airway management: anesthesia and airway protection Difficult airway: no Staff: Supervising provider: Octavio Olguin MD Placed by: Other staff: Cecilio Salmeron RN Emergent airway documentation: Risks and benefits discussed: yes Consent obtained: yes Consent given by: patient Airway prep: Preoxygenated: yes Patient position: sniffing Mask difficulty assessment: 1 - vent by mask Spontaneous ventilation during airway: absent Sedation level during airway: GA Final airway details: Final airway type: endotracheal airway Tube type: ETT ETT size: 7.0 mm Cuffed: yes Technique used for successful ETT placement: direct laryngoscopy Devices/Methods used in placement: stylet Insertion site: oral Blade type: Jason Blade size: 3 Cormack-Lehane (direct): grade I - full view of glottis Initial cuff pressure: 26 cm H2O Cuff inflated with: air ETT to lips: 22 cm Placement verified by: CO2 detection Airway secured with: silk tape Number of attempts: 1 Planned trial extubation: yes Octavio Olguin MD ANESTHESIA ORDERABLES Final Result * TYPE AND SCREEN 14 DAY (03/23/2024 9:29 AM [facility]) ABO Rh A Positive Neftaly, indirect Negative [facility] Blood 03/23/2024 9:29 AM [facility] 03/23/2024 9:45 AM [facility] Narrative [facility] - 03/23/2024 10:49 AM [facility] Has the patient had Daratumumab or Isatuximab in the past 6 months?->Unknown Is this test being ordered in advance for a procedure?->Yes Expected date of procedure:->03/28/24 Has the patient been transfused in the past 3 months?->No Has the patient been in the past 3 months?->No Sydnee Menjivar NP LAB BLOOD BANK TEST ORDERABLE S Final Result Performing Organization Address City/[facility]/ZIP Co de Phone Number [facility] [place] [address] * Vitamin D 25 hydroxy (03/23/2024 9:29 AM [facility]) Pathologist [facility] Vitamin D 25-OH 35 30 - 80 ng/mL Blood 03/23/2024 9:29 AM [facility] 03/23/2024 9:43 AM [facility] Efrain Iglesias MD LAB BLOOD ORDERABLES Final Result Performing Organization Address City/[facility] Co de Phone Number [facility] Department [place] [address] * eGFR (03/21/2024 9:53 AM [facility]) Pathologist [facility] eGFR >90 >=60 mL/min/1. 73 m2 Comment: Interpretive Data Reference Interval Normal >/= 90 mL/min/1.73m2 Mildly decreased* 60 - 89 mL/min/1.73m2 Mildly to moderately decreased 45 - 59 mL/min/1.73m2 Moderately to severely decreased 30 - 44 mL/min/1.73m2 Severely decreased 15 - 29 mL/min/1.73m2 Kidney Failure < 15 mL/min/1.73m2 *Relative to young adult level Estimated glomerular filtration rate is determined by the 2020 CKD-EPI equation recommended by the National Kidney Foundation (A Unifying Approach to GFR Estimation: Recommendations of the NKF-ASK Task Force on Reassessing the Inclusion of Race in Diagnosing Kidney Disease, JASN 2020). The CKD-EPI equation should not be used for patients with unstable renal function and has not been validated in children and those over 70. Current interpretive data was last reviewed 2020. Blood 03/21/2024 9:53 AM [facility] 03/21/2024 1:28 PM [facility] us Efrain Iglesias MD LAB BLOOD ORDERABLES Final Result [facility] [place] [facility] Department [place] [address] * Differential, auto (03/21/2024 9:53 AM [facility]) Neutrophil abs 2.7 1.5 - 6.5 K/cumm Imm gran abs 0.0 0.0 - 0.1 K/cumm [facility] Lymphocyte abs 1.5 0.8 - 3.3 K/cumm [facility] Monocyte abs 0.7 0.2 - 0.8 K/cumm [facility] Eosinophil abs 0.3 0.0 - 0.5 K/cumm [facility] Basophil abs 0.1 0.0 - 0.1 K/cumm [facility] Neutrophil pct 52.0 % [facility] Comment: Interpretive Data Percent cell count reference ranges are not reported, since discordance with absolute values may lead to misinterpretation of CBC data. Current Interpretive Data was last revised on 2017. Imm gran pct 0.2 % [facility] Comment: Interpretive Data Percent cell count reference ranges are not reported, since discordance with absolute values may lead to misinterpretation of CBC data. Current Interpretive Data was last revised on 2017. Lymphocyte pct 28.2 % [facility] Comment: Interpretive Data Percent cell count reference ranges are not reported, since discordance with absolute values may lead to misinterpretation of CBC data. Current Interpretive Data was last revised on 2017. Monocyte pct 12.4 % [facility] Comment: Interpretive Data Percent cell count reference ranges are not reported, since discordance with absolute values may lead to misinterpretation of CBC data. Current Interpretive Data was last revised on 2017. Eosinophil pct 5.9 % [facility] Comment: Interpretive Data Percent cell count reference ranges are not reported, since discordance with absolute values may lead to misinterpretation of CBC data. Current Interpretive Data was last revised on 2017. Basophil pct 1.3 % [facility] Comment: Interpretive Data Percent cell count reference ranges are not reported, since discordance with absolute values may lead to misinterpretation of CBC data. Current Interpretive Data was last revised on 2017. Blood 03/21/2024 9:53 AM [facility] 03/21/2024 1:04 PM [facility] Efrain Iglesias MD LAB BLOOD ORDERABLES Final Result Performing Organization Address City/[facility] Co de Phone Number [facility] [place] [facility] [place] [address] * (ABNORMAL) CBC with auto differential (03/21/2024 9:53 AM [facility]) WBC 5.3 3.8 - 9.9 K/cumm Hgb 10.5(L) 11.9 - 15.5 g/dL [facility] Hct 34.4(L) 35.6 - 45.5 % [facility] Plt 435(H) 150 - 400 K/cumm [facility] MPV 10.1 9.1 - 12.3 fL [facility] RBC 3.97 3.90 - 5.20 M/cumm [facility] MCV 86.6 81.3 - 96.4 fL [facility] MCH 26.4(L) 27.1 - 33.3 pg [facility] MCHC 30.5(L) 32.3 - 35.7 g/dL [facility] RDW CV 14.2 11.1 - 14.9 % [facility] RDW SD 45.6 35.7 - 48.1 fL [facility] NRBC abs 0.00 0.00 - 0.01 K/cumm [facility] Blood 03/21/2024 9:53 AM [facility] 03/21/2024 1:04 PM [facility] Efrain Iglesias MD LAB BLOOD ORDERABLES Final Result [facility] [place] [facility] Department [place] [address] * Creatine kinase (CK), total (03/21/2024 9:53 AM [facility]) Pathologist [facility] CK 66 30 - 200 Units/L Blood 03/21/2024 9:53 AM [facility] 03/21/2024 1:03 PM [facility] Efrain Iglesias MD LAB BLOOD ORDERABLES Final Result Performing Organization Address [facility] de Phone Number [facility] [place] [facility] Department [place] [address] * Comprehensive metabolic panel (03/21/2024 9:53 AM [facility]) [facility] Sodium 144 135 - 145 mmol/L Potassium, pl 4.5 3.3 - 4.9 mmol/L [facility] Chloride 104 97 - 110 mmol/L [facility] CO2 29 22 - 32 mmol/L [facility] Anion gap 11 2 - 15 mmol/L [facility] BUN 14 6 - 25 mg/dL [facility] Creatinine 0.73 0.60 - 1.10 mg/dL [facility] Glucose 109 70 - 199 mg/dL [facility] Comment: Interpretive Data Fasting glucose >/= 126 mg/dl is diagnostic for diabetes. Fasting is defined as no caloric intake for at least 8 hours. Fasting glucose between 100 mg/dl to 125 mg/dl is diagnostic of prediabetes. In a patient with classic symptoms of hyperglycemia or hyperglycemic crisis, a random glucose >/= 200 mg/dl is diagnostic for diabetes. In the absence of unequivocal hyperglycemia, results should be confirmed by repeat testing. The classification and Diagnosis of Diabetes Diabetes Care 202; 46: S19-S40. Current interpretive data was last revised 2022. Calcium 9.9 8.5 - 10.3 mg/dL [facility] Bilirubin, total 0.2 0.1 - 1.2 mg/dL [facility] Protein, pl 7.4 6.5 - 8.5 g/dL [facility] Albumin 4.4 3.5 - 5.0 g/dL [facility] Alk phos 81 40 - 130 Units/L [facility] ALT 21 7 - 45 Units/L [facility] AST 20 10 - 45 Units/L [facility] Blood 03/21/2024 9:53 AM [facility] 03/21/2024 1:03 PM [facility] Efrain Iglesias MD LAB BLOOD ORDERABLES Final Result [facility] Department [place] [address] * Creatine kinase (CK), total (03/17/2024 9:43 AM [facility]) Pathologist [facility] CK 49 30 - 200 Units/L Blood 03/17/2024 9:43 AM [facility] 03/17/2024 2:10 PM [facility] Jeff Larkin MD PhD LAB BLOOD ORDERABLES Final Result Performing Organization Address City/[facility] Co de Phone Number [facility] Department [place] [address] * eGFR (03/14/2024 9:41 AM [facility]) Pathologist [facility] eGFR >90 >=60 mL/min/1. 73 m2 Comment: Interpretive Data Reference Interval Normal >/= 90 mL/min/1.73m2 Mildly decreased* 60 - 89 mL/min/1.73m2 Mildly to moderately decreased 45 - 59 mL/min/1.73m2 Moderately to severely decreased 30 - 44 mL/min/1.73m2 Severely decreased 15 - 29 mL/min/1.73m2 Kidney Failure < 15 mL/min/1.73m2 *Relative to young adult level Estimated glomerular filtration rate is determined by the 2020 CKD-EPI equation recommended by the National Kidney Foundation (A Unifying Approach to GFR Estimation: Recommendations of the NKF-ASK Task Force on Reassessing the Inclusion of Race in Diagnosing Kidney Disease, JASN 2020). The CKD-EPI equation should not be used for patients with unstable renal function and has not been validated in children and those over 70. Current interpretive data was last reviewed 2020. Blood 03/14/2024 9:41 AM [facility] 03/14/2024 2:27 PM [facility] Jeff Larkin MD PhD LAB BLOOD ORDERABLES Final Result [facility] [place] [facility] [place] [address] * Differential, auto (03/14/2024 9:41 AM [facility]) Neutrophil abs 3.8 1.5 - 6.5 K/cumm Imm gran abs 0.0 0.0 - 0.1 K/cumm [facility] Lymphocyte abs 1.5 0.8 - 3.3 K/cumm [facility] Monocyte abs 0.6 0.2 - 0.8 K/cumm [facility] Eosinophil abs 0.5 0.0 - 0.5 K/cumm [facility] Basophil abs 0.1 0.0 - 0.1 K/cumm [facility] Neutrophil pct 58.5 % [facility] Comment: Interpretive Data Percent cell count reference ranges are not reported, since discordance with absolute values may lead to misinterpretation of CBC data. Current Interpretive Data was last revised on 2017. Imm gran pct 0.5 % [facility] Comment: Interpretive Data Percent cell count reference ranges are not reported, since discordance with absolute values may lead to misinterpretation of CBC data. Current Interpretive Data was last revised on 2017. Lymphocyte pct 23.1 % [facility] Comment: Interpretive Data Percent cell count reference ranges are not reported, since discordance with absolute values may lead to misinterpretation of CBC data. Current Interpretive Data was last revised on 2017. Monocyte pct 9.7 % [facility] Comment: Interpretive Data Percent cell count reference ranges are not reported, since discordance with absolute values may lead to misinterpretation of CBC data. Current Interpretive Data was last revised on 2017. Eosinophil pct 6.8 % [facility] Comment: Interpretive Data Percent cell count reference ranges are not reported, since discordance with absolute values may lead to misinterpretation of CBC data. Current Interpretive Data was last revised on 2017. Basophil pct 1.4 % [facility] Comment: Interpretive Data Percent cell count reference ranges are not reported, since discordance with absolute values may lead to misinterpretation of CBC data. Current Interpretive Data was last revised on 2017. Blood 03/14/2024 9:41 AM [facility] 03/14/2024 2:10 PM [facility] us Jeff Larkin MD PhD LAB BLOOD ORDERABLES Final Result [facility] [place] [facility] Department [place] [address] * (ABNORMAL) CBC with auto differential (03/14/2024 9:41 AM [facility]) WBC 6.6 3.8 - 9.9 K/cumm Hgb 10.4(L) 11.9 - 15.5 g/dL [facility] Hct 34.7(L) 35.6 - 45.5 % [facility] Plt 451(H) 150 - 400 K/cumm [facility] MPV 10.3 9.1 - 12.3 fL [facility] RBC 3.94 3.90 - 5.20 M/cumm [facility] MCV 88.1 81.3 - 96.4 fL [facility] MCH 26.4(L) 27.1 - 33.3 pg [facility] MCHC 30.0(L) 32.3 - 35.7 g/dL [facility] RDW CV 14.2 11.1 - 14.9 % [facility] RDW SD 46.3 35.7 - 48.1 fL [facility] NRBC abs 0.00 0.00 - 0.01 K/cumm [facility] Blood 03/14/2024 9:41 AM [facility] 03/14/2024 2:10 PM [facility] us Jeff Larkin MD PhD LAB BLOOD ORDERABLES Final Result [facility] [place] [address] * Erythrocyte sedimentation rate (03/14/2024 9:41 AM [facility]) Erythrocyte sedimentation rate 24 1 - 30 mm/hr Blood 03/14/2024 9:41 AM [facility] 03/14/2024 2:10 PM [facility] us Jeff Larkin MD PhD LAB BLOOD ORDERABLES Final Result Performing Organization Address [facility] Co de Phone Number [facility] [place] [address] * CRP (acute phase) (03/14/2024 9:41 AM [facility]) CRP 1.5 <=10.0 mg/L Blood 03/14/2024 9:41 AM [facility] 03/14/2024 2:10 PM [facility] us Jeff Larkin MD PhD LAB BLOOD ORDERABLES Final Result Performing Organization Address [facility] Co de Phone Number [facility] [place] [address] * Creatine kinase (CK), total (03/14/2024 9:41 AM [facility]) CK 60 30 - 200 Units/L Blood 03/14/2024 9:41 AM [facility] 03/14/2024 2:10 PM [facility] us Jeff Larkin MD PhD LAB BLOOD ORDERABLES Final Result Performing Organization Address City/[facility]/ZIP Co de Phone Number [facility] [place] [address] * Comprehensive metabolic panel (03/14/2024 9:41 AM [facility]) Sodium 140 135 - 145 mmol/L Potassium, pl 4.3 3.3 - 4.9 mmol/L [facility] Chloride 102 97 - 110 mmol/L [facility] CO2 28 22 - 32 mmol/L [facility] Anion gap 10 2 - 15 mmol/L [facility] BUN 14 6 - 25 mg/dL [facility] Creatinine 0.75 0.60 - 1.10 mg/dL [facility] Glucose 88 70 - 199 mg/dL [facility] Comment: Interpretive Data Fasting glucose >/= 126 mg/dl is diagnostic for diabetes. Fasting is defined as no caloric intake for at least 8 hours. Fasting glucose between 100 mg/dl to 125 mg/dl is diagnostic of prediabetes. In a patient with classic symptoms of hyperglycemia or hyperglycemic crisis, a random glucose >/= 200 mg/dl is diagnostic for diabetes. In the absence of unequivocal hyperglycemia, results should be confirmed by repeat testing. The classification and Diagnosis of Diabetes Diabetes Care 2021; 46: S19-S40. Current interpretive data was last revised 2022. Calcium 9.7 8.5 - 10.3 mg/dL [facility] Bilirubin, total 0.2 0.1 - 1.2 mg/dL [facility] Protein, pl 7.4 6.5 - 8.5 g/dL [facility] Albumin 4.5 3.5 - 5.0 g/dL [facility] Alk phos 84 40 - 130 Units/L [facility] ALT 22 7 - 45 Units/L [facility] AST 22 10 - 45 Units/L [facility] Blood 03/14/2024 9:41 AM [facility] 03/14/2024 2:10 PM REGISTRAR NURSES[facility] REGISTRY us Jeff Larkin MD PhD LAB BLOOD ORDERABLES Final Result [facility] [place] [address] * Creatine kinase (CK), total (03/10/2024 9:48 AM REGISTRAR NURSES' REGISTRY) CK 57 30 - 200 Units/L Blood 03/10/2024 9:48 AM REGISTRAR NURSES' REGISTRY 03/10/2024 3:38 PM REGISTRAR NURSES' REGISTRY Notinfile Unknown LAB BLOOD ORDERABLES Final Res ult Performing Organization Address City/[facility]/ZIP Co de Phone Number [facility] Department [place] [address] * (ABNORMAL) Iron profile w/ IBC (03/09/2024 3:41 PM REGISTRAR NURSES' REGISTRY) Pathologist [facility] Iron 32(L) 35 - 145 mcg/dL TIBC 231(L) 250 - 400 mcg/dL [facility] Transferrin saturation 14(L) 20 - 50 % [facility] Blood 03/09/2024 3:41 PM REGISTRAR NURSES' REGISTRY 03/09/2024 4:00 PM REGISTR[facility] NURSES' REGISTRY Pam Negrete EXTRUSION MANAGER LAB BLOOD ORDERABLE S Final Result Performing Organization Address [facility] de Phone Number [facility] [place] [address] * Urinalysis reflex to microscopic and culture Urine (03/09/2024 3:41 PM REGISTRAR NURSES' REGISTRY) Pathologist [facility] Color, ur Straw Yellow Clarity, ur Clear Clear [facility] Specific gravity, ur 1.015 1.003 - 1.030 [facility] pH, urine 6.0 [facility] Comment: Interpretive Data U rine pH is affected by diet, medications, systemic acid-base disturbances, and renal tubular function. pH may affect urinary stone formation. For example, urine pH below 6.0 may help reduce the tendency for calcium phosphate stones and pH greater than 6.0 may reduce the tendency for uric acid stone formation. Source: [facility] [employer] Current Interpretive Data was last revised on 2017 Protein, ur ql Trace Negative [facility] Glucose, ur ql Negative Negative [facility] Ketones, ur Negative Negative [facility] Bilirubin, ur Negative Negative [facility] Blood, ur Negative Negative [facility] Urobilinogen, ur <2.0 <2.0 mg/dL [facility] Nitrite, ur Negative Negative [facility] Leukocyte esterase, ur Negative Negative [facility] UA reflex comment Reflex conditions for microscopic UA and culture not met. [facility] Urine 03/09/2024 3:41 PM REGISTRAR NURSES' REGISTRY 03/09/2024 4:00 PM REGISTRAR NURSES' REGISTRY us Pam Negrete EXTRUSION MANAGER LAB MICROBIOLOGY - GENERAL ORDERABLES Final Result Performing Organization Address [facility]/ZIP Co de Phone Number [facility] [place] [address] * eGFR (03/07/2024 10:36 AM REGISTRAR NURSES' REGISTRY) eGFR >90 >=60 mL/min/1. 73 m2 Comment: Interpretive Data Reference Interval Normal >/= 90 mL/min/1.73m2 Mildly decreased* 60 - 89 mL/min/1.73m2 Mildly to moderately decreased 45 - 59 mL/min/1.73m2 Moderately to severely decreased 30 - 44 mL/min/1.73m2 Severely decreased 15 - 29 mL/min/1.73m2 Kidney Failure < 15 mL/min/1.73m2 *Relative to young adult level Estimated glomerular filtration rate is determined by the 2020 CKD-EPI equation recommended by the National Kidney Foundation (A Unifying Approach to GFR Estimation: Recommendations of the NKF-ASK Task Force on Reassessing the Inclusion of Race in Diagnosing Kidney Disease, JASN 2020). The CKD-EPI equation should not be used for patients with unstable renal function and has not been validated in children and those over 70. Current interpretive data was last reviewed 2020. Blood 03/07/2024 10:3 6 AM REGISTRAR NURSES' REGISTRY 03/07/2024 2:06 PM REGISTRAR NURSES' REGISTRY us Notinfile Unknown LAB BLOOD ORDERABLES Final Res ult Performing Organization Address City/[facility]/ZIP Co de Phone Number [facility] Department [place] [address] * (ABNORMAL) Differential, auto (03/07/2024 10:36 AM REGISTRAR NURSES' REGISTRY) Neutrophil abs 4.3 1.5 - 6.5 K/cumm Imm gran abs 0.0 0.0 - 0.1 K/cumm [facility] Lymphocyte abs 1.5 0.8 - 3.3 K/cumm [facility] Monocyte abs 1.1(H) 0.2 - 0.8 K/cumm [facility] Eosinophil abs 0.6(H) 0.0 - 0.5 K/cumm [facility] Basophil abs 0.1 0.0 - 0.1 K/cumm [facility] Neutrophil pct 56.5 % [facility] Comment: Interpretive Data Percent cell count reference ranges are not reported, since discordance with absolute values may lead to misinterpretation of CBC data. Current Interpretive Data was last revised on 2017. Imm gran pct 0.5 % [facility] Comment: Interpretive Data Percent cell count reference ranges are not reported, since discordance with absolute values may lead to misinterpretation of CBC data. Current Interpretive Data was last revised on 2017. Lymphocyte pct 19.5 % [facility] Comment: Interpretive Data Percent cell count reference ranges are not reported, since discordance with absolute values may lead to misinterpretation of CBC data. Current Interpretive Data was last revised on 2017. Monocyte pct 13.7 % [facility] Comment: Interpretive Data Percent cell count reference ranges are not reported, since discordance with absolute values may lead to misinterpretation of CBC data. Current Interpretive Data was last revised on 2017. Eosinophil pct 8.2 % [facility] Comment: Interpretive Data Percent cell count reference ranges are not reported, since discordance with absolute values may lead to misinterpretation of CBC data. Current Interpretive Data was last revised on 2017. Basophil pct 1.6 % [facility] Comment: Interpretive Data Percent cell count reference ranges are not reported, since discordance with absolute values may lead to misinterpretation of CBC data. Current Interpretive Data was last revised on 2017. Blood 03/07/2024 10:3 6 AM REGISTRAR NURSES' REGISTRY 03/07/2024 1:51 PM REGISTRAR NURSES' REGISTRY us Notinfile Unknown LAB BLOOD ORDERABLES Final Res ult Performing Organization Address City/[facility]/ZIP Co de Phone Number [facility] Department [place] [address] * (ABNORMAL) CBC with auto differential (03/07/2024 10:36 AM REGISTRAR NURSES' REGISTRY) [facility] WBC 7.7 3.8 - 9.9 K/cumm Hgb 10.2(L) 11.9 - 15.5 g/dL [facility] Hct 33.7(L) 35.6 - 45.5 % [facility] Plt 419(H) 150 - 400 K/cumm [facility] MPV 10.2 9.1 - 12.3 fL [facility] RBC 3.80(L) 3.90 - 5.20 M/cumm [facility] MCV 88.7 81.3 - 96.4 fL [facility] MCH 26.8(L) 27.1 - 33.3 pg [facility] MCHC 30.3(L) 32.3 - 35.7 g/dL [facility] RDW CV 14.0 11.1 - 14.9 % [facility] RDW SD 45.4 35.7 - 48.1 fL [facility] NRBC abs 0.00 0.00 - 0.01 K/cumm [facility] Blood 03/07/2024 10:3 6 AM REGISTRAR NURSES' REGISTRY 03/07/2024 1:51 PM REGISTRAR NURSES' REGISTRY us Notinfile Unknown LAB BLOOD ORDERABLES Final Res ult [facility] Department [place] [address] * Creatine kinase (CK), total (03/07/2024 10:36 AM REGISTRAR NURSES' REGISTRY) Pathologist [facility] CK 64 30 - 200 Units/L Blood 03/07/2024 10:3 6 AM REGISTRAR NURSES' REGISTRY 03/07/2024 1:50 PM REGISTRAR NURSES' REGISTRY us Notinfile Unknown LAB BLOOD ORDERABLES Final Res ult [facility] [place] [facility] Department [place] [address] * Comprehensive metabolic panel (03/07/2024 10:36 AM REGISTRAR NURSES' REGISTRY) Sodium 141 135 - 145 mmol/L Potassium, pl 4.5 3.3 - 4.9 mmol/L [facility] Chloride 103 97 - 110 mmol/L [facility] CO2 28 22 - 32 mmol/L [facility] Anion gap 10 2 - 15 mmol/L [facility] BUN 23 6 - 25 mg/dL [facility] Creatinine 0.76 0.60 - 1.10 mg/dL [facility] Glucose 111 70 - 199 mg/dL [facility] Comment: Interpretive Data Fasting glucose >/= 126 mg/dl is diagnostic for diabetes. Fasting is defined as no caloric intake for at least 8 hours. Fasting glucose between 100 mg/dl to 125 mg/dl is diagnostic of prediabetes. In a patient with classic symptoms of hyperglycemia or hyperglycemic crisis, a random glucose >/= 200 mg/dl is diagnostic for diabetes. In the absence of unequivocal hyperglycemia, results should be confirmed by repeat testing. The classification and Diagnosis of Diabetes Diabetes Care 202; 46: S19-S40. Current interpretive data was last revised 2022. Calcium 9.5 8.5 - 10.3 mg/dL [facility] Bilirubin, total 0.2 0.1 - 1.2 mg/dL [facility] Protein, pl 7.2 6.5 - 8.5 g/dL [facility] Albumin 4.5 3.5 - 5.0 g/dL [facility] Alk phos 86 40 - 130 Units/L [facility] ALT 21 7 - 45 Units/L [facility] AST 22 10 - 45 Units/L [facility] Blood 03/07/2024 10:3 6 AM REGISTRAR NURSES' REGISTRY 03/07/2024 1:50 PM REGISTRAR NURSES' REGISTRY us Notinfile Unknown LAB BLOOD ORDERABLES Final Res ult [facility] [place] [address] * Creatine kinase (CK), total (03/03/2024 10:22 AM REGISTRAR NURSES' REGISTRY) CK 56 30 - 200 Units/L Blood 03/03/2024 10:2 2 AM REGISTRAR NURSES' REGISTRY 03/03/2024 2:51 PM REGISTRAR NURSES' REGISTRY Jeff Larkin MD PhD LAB BLOOD ORDERABLES Final Result Performing Organization Address City/[facility]/ZIP Co de Phone Number [facility] [place] [address] * eGFR (02/29/2024 10:08 AM REGISTRAR NURSES' REGISTRY) eGFR >90 >=60 mL/min/1. 73 m2 Comment: Interpretive Data Reference Interval Normal >/= 90 mL/min/1.73m2 Mildly decreased* 60 - 89 mL/min/1.73m2 Mildly to moderately decreased 45 - 59 mL/min/1.73m2 Moderately to severely decreased 30 - 44 mL/min/1.73m2 Severely decreased 15 - 29 mL/min/1.73m2 Kidney Failure < 15 mL/min/1.73m2 *Relative to young adult level Estimated glomerular filtration rate is determined by the 2020 CKD-EPI equation recommended by the National Kidney Foundation (A Unifying Approach to GFR Estimation: Recommendations of the NKF-ASK Task Force on Reassessing the Inclusion of Race in Diagnosing Kidney Disease, JASN 2020). The CKD-EPI equation should not be used for patients with unstable renal function and has not been validated in children and those over 70. Current interpretive data was last reviewed 2020. Blood 02/29/2024 10:0 8 AM REGISTRAR NURSES' REGISTRY 02/29/2024 1:09 PM REGISTRAR NURSES' REGISTRY us Jeff Larkin MD PhD LAB BLOOD ORDERABLES Final Result [facility] [place] [facility] [place] [address] * (ABNORMAL) Differential, auto (02/29/2024 10:08 AM REGISTRAR NURSES' REGISTRY) Neutrophil abs 3.8 1.5 - 6.5 K/cumm Imm gran abs 0.0 0.0 - 0.1 K/cumm [facility] Lymphocyte abs 1.7 0.8 - 3.3 K/cumm [facility] Monocyte abs 0.7 0.2 - 0.8 K/cumm [facility] Eosinophil abs 1.2(H) 0.0 - 0.5 K/cumm [facility] Basophil abs 0.1 0.0 - 0.1 K/cumm [facility] Neutrophil pct 51.0 % [facility] Comment: Interpretive Data Percent cell count reference ranges are not reported, since discordance with absolute values may lead to misinterpretation of CBC data. Current Interpretive Data was last revised on 2017. Imm gran pct 0.4 % [facility] Comment: Interpretive Data Percent cell count reference ranges are not reported, since discordance with absolute values may lead to misinterpretation of CBC data. Current Interpretive Data was last revised on 2017. Lymphocyte pct 22.4 % [facility] Comment: Interpretive Data Percent cell count reference ranges are not reported, since discordance with absolute values may lead to misinterpretation of CBC data. Current Interpretive Data was last revised on 2017. Monocyte pct 8.9 % [facility] Comment: Interpretive Data Percent cell count reference ranges are not reported, since discordance with absolute values may lead to misinterpretation of CBC data. Current Interpretive Data was last revised on 2017. Eosinophil pct 15.5 % [facility] Comment: Interpretive Data Percent cell count reference ranges are not reported, since discordance with absolute values may lead to misinterpretation of CBC data. Current Interpretive Data was last revised on 2017. Basophil pct 1.8 % [facility] Comment: Interpretive Data Percent cell count reference ranges are not reported, since discordance with absolute values may lead to misinterpretation of CBC data. Current Interpretive Data was last revised on 2017. Blood 02/29/2024 10:0 8 AM REGISTRAR NURSES' REGISTRY 02/29/2024 1:01 PM REGISTRAR NURSES' REGISTRY Jeff Larkin MD PhD LAB BLOOD ORDERABLES Final Result [facility] Department [place] [address] * (ABNORMAL) CBC with auto differential (02/29/2024 10:08 AM REGISTRAR NURSES' REGISTRY) WBC 7.4 3.8 - 9.9 K/cumm Hgb 10.4(L) 11.9 - 15.5 g/dL [facility] Hct 34.7(L) 35.6 - 45.5 % [facility] Plt 428(H) 150 - 400 K/cumm [facility] MPV 10.4 9.1 - 12.3 fL [facility] RBC 3.85(L) 3.90 - 5.20 M/cumm [facility] MCV 90.1 81.3 - 96.4 fL [facility] MCH 27.0(L) 27.1 - 33.3 pg [facility] MCHC 30.0(L) 32.3 - 35.7 g/dL [facility] RDW CV 14.1 11.1 - 14.9 % [facility] RDW SD 47.0 35.7 - 48.1 fL [facility] NRBC abs 0.00 0.00 - 0.01 K/cumm [facility] Blood 02/29/2024 10:0 8 AM REGISTRAR NURSES' REGISTRY 02/29/2024 1:01 PM REGISTRAR NURSES' REGISTRY Jeff Larkin MD PhD LAB BLOOD ORDERABLES Final Result [facility] Department [place] [address] * Creatine kinase (CK), total (02/29/2024 10:08 AM REGISTRAR NURSES' REGISTRY) CK 65 30 - 200 Units/L Blood 02/29/2024 10:0 8 AM REGISTRAR NURSES' REGISTRY 02/29/2024 1:00 PM REGISTRAR NURSES' REGISTRY us Jeff Larkin MD PhD LAB BLOOD ORDERABLES Final Result [facility] [place] [facility] [place] [address] * Comprehensive metabolic panel (02/29/2024 10:08 AM REGISTRAR NURSES' REGISTRY) Sodium 141 135 - 145 mmol/L Potassium, pl 4.2 3.3 - 4.9 mmol/L [facility] Chloride 100 97 - 110 mmol/L [facility] CO2 27 22 - 32 mmol/L [facility] Anion gap 14 2 - 15 mmol/L [facility] BUN 13 6 - 25 mg/dL [facility] Creatinine 0.73 0.60 - 1.10 mg/dL [facility] Glucose 92 70 - 199 mg/dL [facility] Comment: Interpretive Data Fasting glucose >/= 126 mg/dl is diagnostic for diabetes. Fasting is defined as no caloric intake for at least 8 hours. Fasting glucose between 100 mg/dl to 125 mg/dl is diagnostic of prediabetes. In a patient with classic symptoms of hyperglycemia or hyperglycemic crisis, a random glucose >/= 200 mg/dl is diagnostic for diabetes. In the absence of unequivocal hyperglycemia, results should be confirmed by repeat testing. The classification and Diagnosis of Diabetes Diabetes Care 2021; 46: S19-S40. Current interpretive data was last revised 2022. Calcium 9.9 8.5 - 10.3 mg/dL [facility] Bilirubin, total 0.2 0.1 - 1.2 mg/dL [facility] Protein, pl 7.2 6.5 - 8.5 g/dL [facility] Albumin 4.4 3.5 - 5.0 g/dL [facility] Alk phos 76 40 - 130 Units/L [facility] ALT 26 7 - 45 Units/L [facility] AST 25 10 - 45 Units/L [facility] Blood 02/29/2024 10:0 8 AM REGISTRAR NURSES' REGISTRY 02/29/2024 1:00 PM REGISTRAR NURSES' REGISTRY us Jeff Larkin MD PhD LAB BLOOD ORDERABLES Final Result Performing Organization Address City/[facility] Co de Phone Number [facility] [place] [employer] [place] [address] * (ABNORMAL) Iron profile w/ IBC (02/26/2024 12:00 PM REGISTRAR NURSES' REGISTRY) [facility] Iron 28(L) 35 - 145 mcg/dL TIBC 223(L) 250 - 400 mcg/dL [facility] Transferrin saturation 13(L) 20 - 50 % [facility] Blood 02/26/2024 12:0 0 PM REGISTRAR NURSES' REGISTRY 02/26/2024 1:56 PM REGISTRAR NURSES' REGISTRY Result [facility] us Jeff Larkin MD PhD LAB BLOOD ORDERABLES Final Result Performing Organization Address [facility] Co de Phone Number [facility] [employer] [place] [address] * Creatine kinase (CK), total (02/26/2024 12:00 PM REGISTRAR NURSES' REGISTRY) [facility] CK 74 30 - 200 Units/L Blood 02/26/2024 12:0 0 PM REGISTRAR NURSES' REGISTRY 02/26/2024 1:56 PM REGISTRAR NURSES' REGISTRY Result [facility] us Jeff Larkin MD PhD LAB BLOOD ORDERABLES Final Result Performing Organization Address [facility] Co de Phone Number [facility] [employer] [address] * Hepatitis C antibody (05/18/2020 12:15 PM CDT) [facility] Hep C Ab Nonreactive Nonreactive [facility] Comment:Antibodies to HCV no t detected. Does NOT exclude the possibility of recent exposure to HCV. Blood specimen (specimen) 05/18/2020 12:15 PM CDT 05/18/2020 12:33 PM CDT Lance Lambert MD PhD LAB MICROBIOLOGY - GENER AL ORDERABLES Edited Result - Final [facility] [place] [facility] [place] [address] from Last 3 Months or Most Recently Relevant to Health Maintenance Insurance [employer] ACCESS CHOICE BLUE [place]ESS CHO[place] [employer] [place] [facility] PPO Advance Directives For more information, please contact: [phone] * Full Code (Latest Code Status on File) Date Activated Date Inactivated Comments 03/28/2024 8:26 PM 04/02/2024 4:50 PM * Full Code Date Activated Date Inactivated Comments 02/01/2024 5:48 AM 02/09/2024 6:01 PM * Full Code Date Activated Date Inactivated Comments 01/07/2024 2:22 PM 01/08/2024 6:20 PM * Full Code Date Activated Date Inactivated Comments 08/03/2023 9:28 AM 08/04/2023 3:46 PM Care Teams Customer Supply Chain Analyst Relationship Specialty Start Date End Date Lance Nielson MD PCP - General 07/01/17
--- OUTSIDE RECORDS SUMMARY | 2024-05-25 13:14 | XMS_ITS | Clinical Summary ---
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 Gender Identity Not on file Sexual Orientation Not on file Plan of Treatment Health Maintenance Due Date Last Done Comments DTAP/TDAP/TD VACCINES (1 - Tdap) 1989 HEPATITIS B VACCINES (1 of 3 - 19+ 3-dose series) 12/17 HPV/Cotest (21-29) 1991 CERVICAL CANCER SCREENING 01/04/2000 HPV/Cotest (30-65) 01/04/2000 PAP SMEAR 01/04/2000 BREAST CANCER SCREENING 2010 COLORECTAL SCREENING 2015 Colorectal Cancer Screening 2015 FIT-DNA Q 3 years 2015 FIT/FOBT Q 1 year 2015 Flex Sig/CT Colonography Q 5 years 2015 ZOSTER VACCINE (1 of 2) 01/04/2020 INFLUENZA VACCINE (#1) 2023 Insurance [employer] BLUE ACCESS/TRUE BLUE PPO Care Teams Senior Project Coordinator Relationship Specialty Start Date End Date Lance Nielson MD PCP - General Family Practice 07/28/19
--- OUTSIDE RECORDS SUMMARY | 2024-05-25 13:14 | XMS_ITS | Encounter Summary ---
Author Organization [facility] Address 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
--- OUTSIDE RECORDS SUMMARY | 2024-05-25 13:14 | XMS_ITS | Referral Summary ---
Author Organization [facility] Address [address] [place] [address] Care Team Providers Care Airline Attendant Name Role Phone Lance Nielson MD Primary Care Provider [phone] Encounters Date Type Department Care Team Description 05/19/2024 Telephone [facility] Infectious Diseases [address] [place] [phone] Corbin Duque Jr., RN 05/19/2024 Orders Only [facility] Infectious Diseases [address] [place] [phone] Gato Chatterjee MD 04/27/2024 Orders Only [facility] Orthopaedic Surgery [address] [place] [address] Office [place] [address] [place] [phone] Efrain Iglesias MD 04/27/2024 Orders Only [facility] Orthopaedic Surgery [address] [place] [address] Office [facility] [address] [place] [phone] Efrain Iglesias MD 04/26/2024 9:16 AM CDT - 04/26/2024 11:59 PM CDT Hospital Encounter [facility] [address] [place] [address] Discharge Disposition: Discharge to home or self care 04/26/2024 9:00 AM CDT Home Care Visit [place] [address] [address] [place] [address] Kyleigh Muse RN SN NON OASIS DISCHARGE 04/25/2024 Home Care Visit [facility] Home Health - [address] [place] [address] Maris Lincoln, ARBEN CASE COMMUNICATION 04/25/2024 Orders Only [facility] Orthopaedic Surgery [address] [facility] Medical Office Building [address] [place] [address] Efrain Iglesias MD Right knee pain, unspecified chronicity (Primary Dx); History of total right knee replacement 04/25/2024 Telephone [facility] Infectious Diseases [address] [place] [phone] Imani Wood CMA 04/22/2024 Telephone [facility] Infectious Diseases [address] [place] [phone] Corbin Duque Jr., RN 04/22/2024 Orders Only [facility] Infectious Diseases [address] [place] [address] [address] [place] [address] Pam Negrete NP Infection of prosthetic joint, sequela (Primary Dx) 04/22/2024 10:45 AM NATURAL GAS ENGINEER Office Visit [facility] Orthopaedic Surgery [address] [facility] 6th [place] [address] [place] [phone] Efrain Iglesias MD 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, subsequent encounter (Primary Dx) 04/22/2024 9:30 AM NATURAL GAS ENGINEER Office Visit [facility] Rheumatology [address] [facility] 5th [place] [address] [place] [phone] Lance Lambert MD PhD Rheumatoid arthritis of multiple sites with negative rheumatoid factor (HCC) (Primary Dx); High risk medication use 04/21/2024 Results Follow-Up [facility] Infectious Diseases [address] [place] [address] [address] [place] [address] Pam Negrete NP 04/20/2024 5:22 PM NATURAL GAS ENGINEER - 04/20/2024 11:59 PM NATURAL GAS ENGINEER Hospital Encounter [facility] [address] [place] [address] Infection of prosthetic joint, sequela Discharge Disposition: Discharge to home or self care 04/20/2024 Telephone [facility] Infectious Diseases [address] [facility] [address] [place] [address] Corbin Duque Jr., ARBEN 04/20/2024 3:20 PM NATURAL GAS ENGINEER Office Visit [facility] Infectious [facility] [address] [facility] [address] [place] [address] Pam Negrete NP Infection of prosthetic joint, sequela (Primary Dx); Infection of prosthetic knee joint, sequela 04/15/2024 Plan of Care Documentation [address] [place] [address] 04/18/2024 11:33 AM NATURAL GAS ENGINEER - 04/18/2024 11:59 PM NATURAL GAS ENGINEER Hospital Encounter [facility] [address] [place] [address] Discharge Disposition: Discharge to home or self care 04/18/2024 Orders Only [facility] Home Care Services [address] [facility] [address] [place] [phone] Braden Agee [facility] 04/18/2024 Documentation [facility] Infectious Diseases [address] [place] [address] [place] [phone] Corbin Duque Jr., RN 04/18/2024 Documentation [facility] Infectious Diseases [address] [place] [address] [address] [place] [address] Corbin Duque Jr., RN 04/18/2024 10:00 AM NATURAL GAS ENGINEER Home Care Visit [address] [place] [address] Maris Lincoln RN SN HOME VISIT 04/15/2024 Home Care Visit [address] [place] [address] Brenda Pineda RN SN TRIAGE ENCOUNTER 04/15/2024 Documentation [facility] Infectious Diseases [address] [place] [phone] Gato Chatterjee MD 04/15/2024 Orders Only [facility] Infectious Diseases [address] [place] [phone] Gato Chatterjee MD Infection of prosthetic knee joint, subsequent encounter (Primary Dx) 04/15/2024 Telephone [facility] Infectious Diseases [address] [place] [phone] Lissa Olivo, FIELD INSTALLER 04/15/2024 11:36 AM NATURAL GAS ENGINEER - 04/15/2024 11:59 PM NATURAL GAS ENGINEER Hospital Encounter [address] [address] Discharge Disposition: Discharge to home or self care 04/15/2024 10:00 AM NATURAL GAS ENGINEER Home Care Visit [address] [place] [address] Maris Lincoln, ARBEN SN NON OASIS RECERTIFICATION 04/12/2024 Orders Only [facility] Home Care Services [address] [facility] [address] [place] [phone] Braden Agee [facility] 04/12/2024 Orders Only [facility] Infectious Diseases [address] [place] [phone] Gato Chatterjee MD 04/11/2024 Telephone [facility] Infectious [address] [phone] Patrice Rodriguez MD 04/11/2024 Home Care Visit [address] [place] [address] Adrienne Alberto, ARBEN SN TRIAGE ENCOUNTER 04/11/2024 2:06 PM NATURAL GAS ENGINEER - 04/11/2024 11:59 PM NATURAL GAS ENGINEER Hospital Encounter [address] [address] Discharge Disposition: Discharge to home or self care 04/11/2024 Documentation [facility] Infectious Diseases [address] [facility] [address] [place] [address] Corbin Duque Jr., RN 04/11/2024 1:00 PM NATURAL GAS ENGINEER Home Care Visit [place] [address] [address] [place] [address] Kyleigh Muse RN SN HOME VISIT 04/08/2024 9:30 AM NATURAL GAS ENGINEER Office Visit [facility] Orthopaedic Surgery [facility] 6th [place] [address] [place] [address] Efrain Iglesias MD 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, subsequent encounter (Primary Dx) 04/07/2024 2:00 PM NATURAL GAS ENGINEER - 04/07/2024 11:59 PM NATURAL GAS ENGINEER Hospital Encounter [facility] [address] [place] [address] Discharge Disposition: Discharge to home or self care 04/07/2024 12:00 PM NATURAL GAS ENGINEER Home Care Visit [place] [address] [address] [place] [address] Maris Lincoln RN SN HOME VISIT 04/05/2024 Orders Only [facility] Home Care Services [address] [place] [address] [place] [phone] Braden Agee [facility] 04/05/2024 Orders Only [facility] Home Care Services [address] [place] [address] [place] [phone] Braden Agee [facility] 04/05/2024 Plan of Care Documentation [address] [place] [address] 04/05/2024 11:00 AM NATURAL GAS ENGINEER Home Care Visit [address] [place] [address] Rosi Rios RN SN OASIS RESUMPTION OF CARE 04/04/2024 Telephone [facility] Infectious Diseases [address] [facility] [address] [place] [phone] Evelina Hernandez LCSW 04/04/2024 Home Care Visit [address] [place] [address] So Ortiz, RN TELEPHONE ENCOUNTER 04/04/2024 Documentation [facility] Infectious Diseases [address] [place] [address] [address] [place] [address] Corbin Duque Jr., RN 04/04/2024 Home Care Visit [address] [place] [address] Evelina Harrington, ARBEN SN TRIAGE ENCOUNTER 04/04/[address] [facility] Scheduling [address] [place] [address] [facility], Homecare Scheduling 04/03/2024 Home Care Visit [address] [place] [address] Estrellita Luis, ARBEN SN TRIAGE ENCOUNTER 04/03/2024 Home Care Visit [address] [place] [address] Deborah Lozano, ARBEN TELEPHONE ENCOUNTER 04/02/2024 Orders Only [facility] Home Care Services [address] [facility] [address] [place] [phone] Mechelle Sellers [facility] 03/28/2024 8:40 AM NATURAL GAS ENGINEER - 04/02/2024 12:50 PM NATURAL GAS ENGINEER Hospital Encounter [facility] [address] [place] [address] Efrain Iglesias MD 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, subsequent encounter (Primary Dx); Pain and swelling of right ankle; Postoperative infection, unspecified type, initial encounter; Infection of prosthetic knee joint, initial encounter Discharge Disposition: Discharge to home, home health skilled care 03/31/2024 Orders Only [facility] Infectious Diseases [address] [place] [address] [address] [place] [address] Anne Lundberg, [facility] 03/31/2024 Documentation [facility] Infectious Diseases [address] [place] [address] [address] [place] [phone] Gato Chatterjee MD 03/30/2024 Orders Only [facility] Infectious Diseases [address] [place] [phone] Pam Negrete NP 03/29/2024 Home Care Visit [place] [address] [address] [place] [address] Maris Lincoln RN SN NON OASIS TRANSFER 03/28/2024 Home Care Visit [place] [address] [address] [place] [address] Shelly Schneider, PT PT NON OASIS TRANSFER 03/28/2024 12:05 PM NATURAL GAS ENGINEER - 03/28/2024 4:05 PM NATURAL GAS ENGINEER Surgery [facility] Operating Room [address] [place] [phone] Efrain Iglesias MD REVISION RIGHT TOTAL KNEE ARTHROPLASTY 03/28/2024 11:01 AM NATURAL GAS ENGINEER Anesthesia Event [facility] Operating Room [address] [place] [phone] Octavio Olguin MD Thomas, Karen D., [facility] 03/27/2024 Home Care Visit [place] [address] [place] [address] Garima Epstein RN SN TRIAGE ENCOUNTER 03/25/2024 9:00 AM NATURAL GAS ENGINEER Home Care Visit [place] [address] [address] [place] [address] Maris Lincoln RN SN HOME VISIT 03/24/2024 Telephone [facility] Infectious Diseases [address] [place] [phone] Imani Wood CMA 03/24/2024 Documentation [facility] Infectious Diseases [address] [place] [address] [place] [phone] Virginia Dai, ARBEN OPAT stop (OPAT stop 03/24/24 patient transitioned to orals) 03/23/2024 8:00 AM NATURAL GAS ENGINEER Pre-Admission Testing [facility] Center for Preoperative Assessment and Planning [facility] Advanced Medicine ([facility]) [address] [place] [address] Preoperative testing (Primary Dx); 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, subsequent encounter; Acute pain of right knee 03/21/2024 9:53 AM NATURAL GAS ENGINEER - 03/21/2024 11:59 PM NATURAL GAS ENGINEER Hospital Encounter [address] [address] Discharge Disposition: Discharge to home or self care 03/21/2024 8:00 AM NATURAL GAS ENGINEER Home Care Visit [address] [place] [address] Maris Lincoln, ARBEN SN HOME VISIT 03/18/2024 Documentation [facility] Infectious Diseases [address] [place] [address] [address] [place] [address] Virginia Dai, ARBEN OPAT 03/18/2024 Orders Only [facility] Home Care Services [address] [place] [address] [place] [phone] Braden Agee [facility] 03/18/2024 4:30 PM NATURAL GAS ENGINEER Home Care Visit [address] [place] [address] Shelly Schneider, PT PT HOME VISIT 03/17/2024 Orders Only [facility] Home Care Services [address] [place] [address] [place] [phone] Braden Agee [facility] 03/17/2024 9:43 AM NATURAL GAS ENGINEER - 03/17/2024 11:59 PM NATURAL GAS ENGINEER Hospital Encounter [address] [address] Discharge Disposition: Discharge to home or self care 03/17/2024 Telephone [facility] Orthopaedic Surgery [address] [place] [address] Medical Office Building [address] [place] [phone] Efrain Iglesias MD 03/17/2024 12:40 PM NATURAL GAS ENGINEER Office Visit [facility] Infectious Diseases [address] [place] [address] [address] [place] [phone] Pam Negrete NP Infection of prosthetic knee joint, subsequent encounter (Primary Dx); Rochelle-Danlos syndrome; Rheumatoid arthritis of multiple sites with negative rheumatoid factor (HCC) 03/17/2024 8:00 AM NATURAL GAS ENGINEER Home Care Visit [address] [place] [address] Maris Lincoln, ARBEN SN HOME VISIT 03/15/2024 Documentation [facility] Infectious Diseases [address] [facility] [address] [place] [phone] Virginia Dai, ARBEN Opat Progress/Monitoring (Labs 03/14/24 Reviewed) 03/15/2024 11:45 AM NATURAL GAS ENGINEER Office Visit [facility] Orthopaedic Surgery [address] [place] [address] Medical Office Building [address] [place] [phone] Efrain Iglesias MD History of total right knee replacement (Primary Dx) 03/14/2024 9:41 AM NATURAL GAS ENGINEER - 03/14/2024 11:59 PM NATURAL GAS ENGINEER Hospital Encounter [facility] [address] [place], [place] [address] Discharge Disposition: Discharge to home or self care 03/14/2024 4:00 PM NATURAL GAS ENGINEER Home Care Visit [address] [place] [address] Shelly Schneider, PT PT HOME VISIT 03/14/2024 9:00 AM NATURAL GAS ENGINEER Home Care Visit [address] [place] [address] Maris Lincoln RN SN HOME VISIT 03/12/2024 Home Care Visit [address] [place] [address] Garima Epstein RN SN TRIAGE ENCOUNTER 03/12/2024 10:00 AM NATURAL GAS ENGINEER Home Care Visit [address] [place] [address] Jami Porras RN SN HOME VISIT 03/11/2024 Home Care Visit [address] [place] [address] Evelina Harrington, ARBEN SN TRIAGE ENCOUNTER 03/11/2024 Documentation [facility] Infectious Diseases [address] [facility] [address] [place] [address] Virginia Dai, ARBEN Opat Progress/Monitoring (03/07/24 Labs reviewed) 03/10/2024 9:48 AM NATURAL GAS ENGINEER - 03/10/2024 11:59 PM NATURAL GAS ENGINEER Hospital Encounter [facility] [address] [place] [address] Discharge Disposition: Discharge to home or self care 03/10/2024 9:00 AM NATURAL GAS ENGINEER Home Care Visit [address] [place] [address] Maris Lincoln RN SN HOME VISIT 03/09/2024 6:20 PM NATURAL GAS ENGINEER Lab [facility] Advanced Medicine [facility] ([facility]) [address] [place] [phone] Infection of prosthetic knee joint, sequela 03/09/2024 1:40 PM NATURAL GAS ENGINEER Office Visit [facility] Orthopaedic Surgery [address] [place] [address] 2nd Floor [address] [place] [phone] Lexx Carbone MD History of total right knee replacement (Primary Dx) 03/08/2024 Orders Only [facility] Home Care Services [address] [facility] [address] [place] [address] Braden Agee peyton 03/08/2024 Telephone [facility] Infectious Diseases [address] [facility] [address] [place] [address] Imani Wood CMA 03/07/2024 10:36 AM NATURAL GAS ENGINEER - 03/07/2024 11:59 PM NATURAL GAS ENGINEER Hospital Encounter [facility] [address] [place] [address] Discharge Disposition: Discharge to home or self care 03/07/2024 9:00 AM NATURAL GAS ENGINEER Home Care Visit [address] [place] [address] Maris Lincoln, ARBEN SN HOME VISIT 03/03/2024 10:22 AM NATURAL GAS ENGINEER - 03/03/2024 11:59 PM NATURAL GAS ENGINEER Hospital Encounter [address] [address] Discharge Disposition: Discharge to home or self care 03/03/2024 9:30 AM NATURAL GAS ENGINEER Home Care Visit [address] [place] [address] Maris Lincoln, ARBEN SN HOME VISIT 03/01/2024 Documentation [facility] Infectious Diseases [address] [place] [phone] Virginia Dai RN Opat Progress/Monitoring (Labs 02/29/24 reviewed) 02/29/2024 10:08 AM NATURAL GAS ENGINEER - 02/29/2024 11:59 PM NATURAL GAS ENGINEER Hospital Encounter [address] [address] Discharge Disposition: Discharge to home or self care 02/29/2024 9:00 AM NATURAL GAS ENGINEER Home Care Visit [address] [place] [address] Maris Lincoln RN SN HOME VISIT 02/26/2024 12:00 PM NATURAL GAS ENGINEER - 02/26/2024 11:59 PM NATURAL GAS ENGINEER Hospital Encounter [address] [address] Discharge Disposition: Discharge to home or self care 02/26/2024 Home Care Visit [address] [place] [address] Maris Lincoln, ARBEN CASE COMMUNICATION 02/26/2024 3:00 PM NATURAL GAS ENGINEER Home Care Visit [address] [place] [address] Shelly Schneider, PT PT INITIAL EVALUATION 02/26/2024 11:00 AM NATURAL GAS ENGINEER Home Care Visit [facility] - [address] [place] [id number] Maris Lincoln RN SN HOME VISIT 02/25/2024 Documentation [facility] Infectious Diseases [address] [facility] [address] [place] [phone] Virginia Dai RN Opat Progress/Monitoring (Labs 02/22 Reviewed SEEN 02/25/2024, continue IV) 02/25/2024 Telephone [facility] Infectious Diseases [address] [facility] [address] [place] [phone] Virginia Dai RN OPAT 02/25/2024 12:40 PM NATURAL GAS ENGINEER Office Visit [facility] Infectious Diseases [address] [place] [address] [address] [place] [address] Pam Nergete, [facility] Infection of prosthetic knee joint, sequela (Primary Dx); Infection of joint (HCC) from Last 3 Months Allergies Active Allergy Reactions Criticality Noted Date [...] times a day for 20 days RX [id number] 40 capsule 05/06/19 25 2024 Active sulfamethoxazol [...] mouth 2 (two) times a day RX [id number] 04/19/19 25 2024 Discontinued(R eorder) sulfamethoxazol e-trimethoprim [...] 03/29/2024 Assessment & Plan (03/31/2024 4:47 PM NATURAL GAS ENGINEER): Ankle aspirate is inconclusive (1140 WBCs with [...] concerns. Assessment & Plan (03/31/2024 4:46 PM NATURAL GAS ENGINEER): Ms. Allyson Abdullahi is a 54 y.o. [...] sent metronidazole prescription to her home pharmacy ([facility] in [facility]). Please note- the outpatient prescription is 375mg [...] recommendations. Assessment & Plan (03/19/2024 2:20 PM NATURAL GAS ENGINEER): She underwent Right leg I&D on 02/01/24. [...] 02/03/2024 Assessment & Plan (02/26/2024 7:50 PM NATURAL GAS ENGINEER): She underwent Right leg I&D on 02/01/24. [...] 02/01/2024 Assessment & Plan (02/08/2024 12:15 PM NATURAL GAS ENGINEER): Allyson Abdullahi is a 54 y.o. female [...] the surgical incision prompting presentation to the [facility] ED on 01/31/2024. She denied any [...] suppression recommendation. (TBD at ID follow up). 02/04 Qtc: 472 Recommendations: - Start daptomycin 8mg/kg [...] would discuss not taking Plaquenil with her manager technical. 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 Rheumatoid arthritis of [facility] iple sites with negative rheumatoid factor 12/24/2017 [...] Knee pain 05/17/2012 Low back pain 04/15/2010 Immunizations Immunization Administration Dates Next Due Influenza, Quadrivalent, Spl it, Preservative Free, Intramuscular 12/04/2017 Influenza, Trivalent, Preservative Free, Intramu scular 11/24/2019,12/01/2018 Influenza, Unspecified 11/17/2023 Moderna SARS-CoV-2 Monovalent Vaccination (12+ Y RS) 04/06/2020,03/09/2020 Pfizer Sars-Cov-2 Bivalent Vaccination (12+ YRS) 12/06/2021 Social History Tobacco Use Types Packs/Day Years Used Date Smoking Tobacco: Former Cigarettes 1 33 1 986 - 2019 Smokeless Tobacco: Never Tobacco Cessation:Counseling Given: Not [...] on file Legal Sex Female 8:29 AM NATURAL GAS ENGINEER Gender Identity Not on file Sexual Orientation Straight 06/01/2018 7: 43 AM CDT 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 Not on file Not on file Last Filed Vital Signs Vital Sign Reading Time Taken Comments Blood Pressure 132/86 04/26/2024 8:59 AM CDT Pulse 84 04/26/2024 8:59 AM CDT Temperature 37.3 C (99.1 F) 04/26/2024 8:59 AM CDT Respiratory Rate 20 04/26/2024 8:59 AM CDT Oxygen Saturation 98% 04/26/2024 8:59 AM CDT Inhaled Oxygen Concentration - - Weight 97.1 kg (214 lb) 04/22/2024 9:46 AM NATURAL GAS ENGINEER Height 158.8 cm (5' 2.52 ) 04/22/2024 9:46 AM CS T Body Mass Index 38.49 04/22/2024 9:46 AM NATURAL GAS ENGINEER Plan of Treatment Not on file Medical Devices Implanted Type Area Creative Project Manager Device Identifier Shelf Expiration Date Model / Serial / Lot [employer]/Ort ho Zeny Ii 13mm Constrain Knee 3-4 Insert Articular Uhmwpe [id number] - S0 - [id number] Implanted:Qty: 1 on 08/03/2023 by Efrain Iglesias MD at [facility] Other - see comments [employer]/ Ortho [id number] 03/22/2026 [id number] / 0 / [id number] [employer] [id number] Screw Bone L26mm Od3.5mm Foot Ankle Cannulated Color Coded Osteotomy - S0 - [id number] Implanted:Qty: 1 on 12/08/2019 by Og Garcia MD at [facility] Screw Left: Foot [employer] [id number] / 0 / [employer] [id number] Screw Bone Medline Unite L24mm Od3.5mm Head Nonsterile - S0 - [id number] Implanted:Qty: 1 on 12/08/2019 by Og Garcia MD at [facility] Screw Left: Foot [employer] [id number] / 0 / [employer] 7115-1818kt Dynaforce [id number] Superelastic Staple Bone Nitinol Sterile - [id number] Implanted:Qty: 1 on 12/08/2019 by Og Garcia MD at [facility] Left: Foot [employer] [id number] 02/19/2020 [id number] / / [id number] [employer] 7118-2020kt Dyn[employer]force [id number] Superelastic Staple Bone Nitinol Sterile - [id number] Implanted:Qty: 1 on 12/08/2019 by Og Garcia MD at [facility] Left: Foot [employer] [id number] 04/15/2021 7118-2020KT / / [id number] [employer] [id number] Screw Bone Medline Unite L18mm Od3.5mm Foot Ankle Nonlock - [id number] Implanted:Qty: 1 on 08/16/2020 by Og Garcia MD at [facility] Left: Foot Cloud[employer] Inc [id number] / / NONE Cloud.CM Inc [id number] Screw 24mm 3.5mm Bone Medline Unite Foot Ankle Lock - [id number] Implanted:Qty: 2 on 08/16/2020 by Og Garcia MD at [facility] Left: Foot Medline Industries Inc [id number] / / NONE Medline Industries Inc [id number] Screw 20mm 3.5mm Bone Medline Unite Foot Ankle Lock - [id number] Implanted:Qty: 2 on 08/16/2020 by Og Garcia MD at [facility] Left: Foot Medline cooala - your brands Inc [id number] / / NONE Hines [employer] Inc [id number] Katie 9x15mm Compression Ankle Foot Staple Bone Stainless - [id number] - [id number] Implanted:Qty: 1 on 08/16/2020 by Og Garcia MD at [facility] [place] Left: Foot Ansible Inc [id number] / [id number] / Medline cooala - your brands Inc [id number] Screw Bone Medline Unite L20mm Od3.5mm Foot Ankle Nonlock - [id number] Implanted:Qty: 1 on 08/16/2020 by Og Garcia MD at [facility] Left: Foot Cloud[employer] Inc [id number] / / Cloud.CM Inc [id number] Plate Bone Medline Unite Straight Tarsometatarsal 3 Hole - [id number] Implanted:Qty: 1 on 08/16/2020 by Og Garcia MD at [facility] Left: Foot Cloud[employer] Inc [id number] / / Digital Alliance Medical [employer] Inc 876p-0400 Mini Ignite Power Mix Injectable Graft 4ml Synthetic Tissue - [id number] - [id number] Implanted:Qty: 1 on 08/16/2020 by Og Garcia MD at [facility] Left: Foot Ansible Inc 03/07/2024 [id number] / [id number] / Cloud.CM Inc [id number] Plate Bone Medline Unite Tarsometatarsal Nonsterile Lapidus - [id number] Implanted:Qty: 1 on 08/16/2020 by Og Garcia MD at [facility] Left: Foot Cloud.[employer] Inc [id number] / / Medline Industries Inc [id number] Screw Bone Medline Unite L22mm Od3.5mm Foot Ankle Nonlock - [id number] Implanted:Qty: 1 on 08/16/2020 by Og Garcia MD at [facility] Left: Foot [employer]line Industries Inc [id number] / / NONE Medline cooala - your brands Inc [id number] Screw Bone L40mm Od4mm Foot Ankle Cannulated Color Coded Osteotomy - [id number] Implanted:Qty: 1 on 08/16/2020 by Og Garcia MD at [facility] Left: Foot Cloud.[employer] Inc [id number] / / NONE Lundberg [employer] Nephew/Richco/Ort ho Zeny Ii 13mm Constrain Knee 3-4 Insert Articular Uhmwpe [id number] - [id number] Implanted:Qty: 1 on 02/04/2024 by Efrain Iglesias MD at [facility] Right: Knee [employer] Nephew/Richco/ Ortho [id number] 09/22/2032 [id number] / / [id number] Biocomposites Stimulan Rapid Cure Kit Paste Laundry Aide 10cc 20cc Bone Void 062084 - [id number] Implanted:Qty: 1 on 02/04/2024 by Efrain Iglesias MD at [facility] Right: Knee Biocomposites [id number] 04/15/2025 [id number] / / [id number] Ernesto Biomet Inc Baseplate Tibial Knee Cemented Right Fixed Stemmed Persona Size E Tivanium [id number] - [id number] Implanted:Qty: 1 on 03/28/2024 by Efrain Iglesias MD at [facility] Right: Knee Ernesto [employer] Inc [id number] 10/10/2033 [id number] / / [id number] Ernesto Biomet Inc Persona 14mm 30+ Mm Knee Tibia Taper Extension Stem [id number] - [id number] Implanted:Qty: 1 on 03/28/2024 by Efrain Iglesias MD at [facility] Right: Knee Ernesto [employer] Inc [id number] 04/04/2033 [id number] / / [id number] [employer] Simplex P Full Dose Radiopaque Preblend Cement Bone Tobramycin 6197-9-001 - [id number] Implanted:Qty: 5 on 03/28/2024 by Efrain Iglesias MD at [facility] Right: Knee [employer] [id number] 03/18/2025 6197-9-001 / / [id number] [employer] Simplex P Full Dose Radiopaque Preblend Cement Bone Tobramycin 6197-9-001 - [id number] Implanted:Qty: 1 on 03/28/2024 by Efrain Iglesias MD at [facility] Right: Knee [employer] [id number] 01/15/2025 6197-9-001 / / [id number] Ernesto [employer]omet Inc Persona 18mm Constrain Posterior Stabilized Knee Right 6-9 Ef [id number] - [id number] Implanted:Qty: 1 on 03/28/2024 by Efrain Iglesias MD at [facility] Right: Knee Ernesto [employer] Inc [id number] 04/06/2028 [id number] / / [id number] Ernesto Biomet Inc Component Femoral Knee Cemented Std Right Persona Size 6 Tivanium [id number] - [id number] Implanted:Qty: 1 on 03/28/2024 by Efrain Iglesias MD at [facility] Right: Knee Ernesto [employer] Inc 03/04/2033 [id number] / / [id number] Explanted Type Area Creative Project Manager Device Identifier Shelf Expiration Date Model / Serial / Lot Lundberg & Nephew/Richco/ Ortho Zeny Ii 13mm Constrain Knee 3-4 Insert Articular Uhmwpe [id number] - S0 - [id number] Explanted:Qty: 1 on 08/03/2023 at [facility] Other - see comments Lundberg [employer] Nephew/Richco/ Ortho [id number] 08/28/2031 [id number] / [id number] [employer] [id number] Haydee .45in 9in 1 [place] Orthopedic Wire Fixation - [id number] Explanted:Qty: 1 on 12/08/2019 at [facility] Left: Foot [employer] [id number] / / [employer] [id number] Haydee .062in 9in [place] One End Orthopedic Wire - S0 - [id number] Explanted:Qty: 2 on 12/08/2019 at [facility] Left: Foot [employer] [id number] / 0 / Ernesto Biomet Inc [id number] Haydee 1.6mm 150mm 1 End [place] Wire Fixation Stainless - [id number] Explanted:Qty: 1 on 08/16/2020 by Og Garcia MD at [facility] [place] Left: Foot Ernesto [employer] Inc [id number] / / Cloud.CM Inc [id number] Pin Fixation Medline Unite L10mm Od1.1mm - [id number] Explanted:Qty: 2 on 08/16/2020 by Og Garcia MD at [facility] [place] Left: Foot [employer]ive[employer] [id number] / / Procedures Procedure Name Priority Date/Time [...] DIFFERENTIAL AUTO Routine 04/20/2024 3:4 2 PM NATURAL GAS ENGINEER Infection of prosthetic joint, sequela CBC WITH AUTO DIFFERENTIAL Routine 04/20/2024 3:42 PM NATURAL GAS ENGINEER Infection of prosthetic joint, sequela MANUAL DIFFERENTIAL Routine 04/18/2024 11:33 AM NATURAL GAS ENGINEER EGFR Routine 04/18/2024 11:33 AM NATURAL GAS ENGINEER CREATINE KINASE (CK), TOTAL Routine 04/18/2024 11:33 AM NATURAL GAS ENGINEER COMPREHENSIVE METABOLIC PANEL Routine 04/18/2024 11:33 AM NATURAL GAS ENGINEER CBC WITH AUTO DIFFERENTIAL Routine 04/18/2024 11:33 AM NATURAL GAS ENGINEER DIFFERENTIAL AUTO Routine 04/15/2024 11:36 AM NATURAL GAS ENGINEER CREATINE KINASE (CK), TOTAL Routine 04/15/2024 11:36 AM NATURAL GAS ENGINEER CBC WITH AUTO DIFFERENTIAL Routine 04/15/2024 11:36 AM NATURAL GAS ENGINEER MANUAL DIFFERENTIAL Routine 04/11/2024 2 :06 PM NATURAL GAS ENGINEER EGFR Routine 04/11/2024 2:06 PM NATURAL GAS ENGINEER CREATINE KINASE (CK), TOTAL Routine 04/11/2024 2:06 PM NATURAL GAS ENGINEER CBC WITH AUTO DIFFERENTIAL Routine 04/11/2024 2:06 PM NATURAL GAS ENGINEER GLUCOSE, RANDOM (OUTREACH) Routine 04/11/2024 2:06 PM NATURAL GAS ENGINEER COMPREHENSIVE METABOLIC PANEL WITHOUT GLUCOSE (OUTREACH) Routine 04/11/2024 2:06 PM NATURAL GAS ENGINEER EGFR Routine 04/07/2024 2:00 PM NATURAL GAS ENGINEER DIFFERENTIAL AUTO Routine 04/07/2024 2:0 0 PM NATURAL GAS ENGINEER CBC WITH AUTO DIFFERENTIAL Routine 04/07/2024 2:00 PM NATURAL GAS ENGINEER CREATINE KINASE (CK), TOTAL Routine 04/07/2024 2:00 PM NATURAL GAS ENGINEER COMPREHENSIVE METABOLIC PANEL Routine 04/07/2024 2:00 PM NATURAL GAS ENGINEER EGFR Routine 04/02/2024 5:10 AM NATURAL GAS ENGINEER DIFFERENTIAL AUTO Routine 04/02/2024 5:1 0 AM NATURAL GAS ENGINEER CBC WITH AUTO DIFFERENTIAL Routine 04/02/2024 5:10 AM NATURAL GAS ENGINEER BASIC METABOLIC PANEL Routine 04/02/2024 5:10 AM NATURAL GAS ENGINEER EGFR Routine 04/01/2024 5:46 AM NATURAL GAS ENGINEER DIFFERENTIAL AUTO Routine 04/01/2024 5:4 6 AM NATURAL GAS ENGINEER BASIC METABOLIC PANEL Routine 04/01/2024 5:46 AM NATURAL GAS ENGINEER ERYTHROCYTE SEDIMENTATION RATE Timed 04/01/2024 5:46 AM NATURAL GAS ENGINEER CBC WITH AUTO DIFFERENTIAL Routine 04/01/2024 5:46 AM NATURAL GAS ENGINEER DIFFERENTIAL AUTO Routine 04/01/2024 4:3 0 AM NATURAL GAS ENGINEER CBC WITH AUTO DIFFERENTIAL Routine 04/01/2024 4:30 AM NATURAL GAS ENGINEER HEMOGLOBIN AND HEMATOCRIT Routine 03/31/2024 11:48 AM NATURAL GAS ENGINEER TRANSFUSE RED BLOOD CELLS Timed 03/31/2024 7:02 AM NATURAL GAS ENGINEER PREPARE RBC Timed 03/31/2024 6:05 AM NATURAL GAS ENGINEER CRP (ACUTE PHASE) Timed 03/31/2024 6:0 4 AM NATURAL GAS ENGINEER CREATINE KINASE (CK), TOTAL Timed 03/31/2024 6:04 AM NATURAL GAS ENGINEER ERYTHROCYTE SEDIMENTATION RATE Timed 03/31/2024 6:04 AM NATURAL GAS ENGINEER EGFR Timed 03/31/2024 6:04 AM NATURAL GAS ENGINEER BASIC METABOLIC PANEL Timed 03/31/2024 6:04 AM NATURAL GAS ENGINEER CBC WITHOUT DIFFERENTIAL Timed 03/31/2024 6:04 AM NATURAL GAS ENGINEER EGFR Routine 03/31/2024 5:21 AM NATURAL GAS ENGINEER DIFFERENTIAL AUTO Routine 03/31/2024 5:2 1 AM NATURAL GAS ENGINEER CBC WITH AUTO DIFFERENTIAL Routine 03/31/2024 5:21 AM NATURAL GAS ENGINEER BASIC METABOLIC PANEL Routine 03/31/2024 5:21 AM NATURAL GAS ENGINEER XR ANKLE RIGHT 3 OR MORE VIEWS IP Routine 03/30/2024 2:50 PM NATURAL GAS ENGINEER EGFR Routine 03/30/2024 12:44 PM NATURAL GAS ENGINEER VANCOMYCIN LEVEL TROUGH Routine 03/30/2024 12:44 PM NATURAL GAS ENGINEER CRP (ACUTE PHASE) Routine 03/30/2024 12:44 PM NATURAL GAS ENGINEER BASIC METABOLIC PANEL Routine 03/30/2024 12:44 PM NATURAL GAS ENGINEER EGFR Timed 03/29/2024 5:33 AM NATURAL GAS ENGINEER CBC WITHOUT DIFFERENTIAL Timed 03/29/2024 5:33 AM NATURAL GAS ENGINEER BASIC METABOLIC PANEL Timed 03/29/2024 5:33 AM NATURAL GAS ENGINEER XR KNEE RIGHT 1 OR 2 VIEWS ED Urgent/IP Urgent 03/28/2024 4:21 PM NATURAL GAS ENGINEER MYCOBACTERIOLOGY AFB CULTURE AND ACID-FAST STAIN Routine 03/28/2024 12:54 PM NATURAL GAS ENGINEER MYCOLOGY (FUNGAL) CULTURE AND STAIN Routine 03/28/2024 12:54 PM NATURAL GAS ENGINEER TISSUE AEROBIC AND ANAEROBIC CULTURE AND GRAM STAIN Routine 03/28/2024 12:54 PM NATURAL GAS ENGINEER MYCOBACTERIOLOGY AFB CULTURE Routine 03/28/2024 12:49 PM NATURAL GAS ENGINEER MYCOLOGY (FUNGAL) CULTURE Routine 03/28/2024 12:49 PM NATURAL GAS ENGINEER TISSUE AEROBIC AND ANAEROBIC CULTURE AND GRAM STAIN Routine 03/28/2024 12:49 PM NATURAL GAS ENGINEER AEROBIC AND ANAEROBIC CULTURE AND GRAM STAIN Routine 03/28/2024 12:48 PM NATURAL GAS ENGINEER MYCOBACTERIOLOGY AFB CULTURE Routine 03/28/2024 12:48 PM NATURAL GAS ENGINEER MYCOLOGY (FUNGAL) CULTURE Routine 03/28/2024 12:48 PM NATURAL GAS ENGINEER CELL DIFFERENTIAL, BODY FLUID STAT 03/28/2024 11:43 AM NATURAL GAS ENGINEER CRYSTAL ANALYSIS, BODY FLUID STAT 03/28/2024 11:43 AM NATURAL GAS ENGINEER CELL COUNT W/REFLEX DIFFERENTIAL, BODY FLUID STAT 03/28/2024 11:43 AM NATURAL GAS ENGINEER MYCOLOGY (FUNGAL) CULTURE STAT 03/28/2024 11:43 AM NATURAL GAS ENGINEER AEROBIC AND ANAEROBIC CULTURE AND GRAM STAIN STAT 03/28/2024 11:43 AM NATURAL GAS ENGINEER GA AN PROCEDURE PLACEHOLDER Routine 03/28/2024 11:24 AM NATURAL GAS ENGINEER GA AN PROCEDURE PLACEHOLDER Routine 03/28/2024 11:22 AM NATURAL GAS ENGINEER GA AN ELECTIVE ENDOTRACHEAL AIRWAY Routine 03/28/2024 11:22 AM NATURAL GAS ENGINEER ASPIRATION INJECTION INTERMEDIATE JOINT BURSA WITHOUT GUIDE (WRIST, ELBOW) 03/28/2024 11:01 AM NATURAL GAS ENGINEER 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, subsequent encounter Acute pain of right knee Case Notes 2/3 per [place] ctc is 140 min per diego murguia ctc is 30 min- RC FLAP ELEVATION 03/28/2024 11:01 AM NATURAL GAS ENGINEER 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, subsequent encounter Acute pain of right knee Case Notes 2/3 per [place] ctc is 140 min per diego murguia ctc is 30 min- RC PLACEMENT SPACER/ANTIBIOTIC BEAD - KNEE 03/28/2024 11:01 AM NATURAL GAS ENGINEER 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, subsequent encounter Acute pain of right knee Case Notes 2/3 per [place] ctc is 140 min per diego murguia ctc is 30 min- RC VITAMIN D 25 HYDROXY Routine 03/23/2024 9:29 AM NATURAL GAS ENGINEER 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, subsequent encounter Acute pain of right knee TYPE AND SCREEN 14 DAY Routine 9:29 AM NATURAL GAS ENGINEER Preoperative testing EGFR Routine 03/21/2024 9:53 AM NATURAL GAS ENGINEER DIFFERENTIAL AUTO Routine 03/21/2024 9:5 3 AM NATURAL GAS ENGINEER CREATINE KINASE (CK), TOTAL Routine 03/21/2024 9:53 AM NATURAL GAS ENGINEER CBC WITH AUTO DIFFERENTIAL Routine 03/21/2024 9:53 AM NATURAL GAS ENGINEER COMPREHENSIVE METABOLIC PANEL Routine 03/21/2024 9:53 AM NATURAL GAS ENGINEER CREATINE KINASE (CK), TOTAL Routine 03/17/2024 9:43 AM NATURAL GAS ENGINEER EGFR Routine 03/14/2024 9:41 AM NATURAL GAS ENGINEER DIFFERENTIAL AUTO Routine 03/14/2024 9:4 1 AM NATURAL GAS ENGINEER CRP (ACUTE PHASE) Routine 03/14/2024 9:4 1 AM NATURAL GAS ENGINEER ERYTHROCYTE SEDIMENTATION RATE Routine 03/14/2024 9:41 AM NATURAL GAS ENGINEER CREATINE KINASE (CK), TOTAL Routine 03/14/2024 9:41 AM NATURAL GAS ENGINEER CBC WITH AUTO DIFFERENTIAL Routine 03/14/2024 9:41 AM NATURAL GAS ENGINEER COMPREHENSIVE METABOLIC PANEL Routine 03/14/2024 9:41 AM NATURAL GAS ENGINEER CREATINE KINASE (CK), TOTAL Routine 03/10/2024 9:48 AM NATURAL GAS ENGINEER IRON PROFILE W/ IBC Routine 03/09/2024 3 :41 PM NATURAL GAS ENGINEER Infection of prosthetic knee joint, sequela URINALYSIS AND REFLEX TO MICROSCOPIC AND CULTURE Routine 03/09/2024 3:41 PM NATURAL GAS ENGINEER Infection of prosthetic knee joint, sequela EGFR Routine 03/07/2024 10:36 AM NATURAL GAS ENGINEER DIFFERENTIAL AUTO Routine 03/07/2024 10:36 AM NATURAL GAS ENGINEER CREATINE KINASE (CK), TOTAL Routine 03/07/2024 10:36 AM NATURAL GAS ENGINEER CBC WITH AUTO DIFFERENTIAL Routine 03/07/2024 10:36 AM NATURAL GAS ENGINEER COMPREHENSIVE METABOLIC PANEL Routine 03/07/2024 10:36 AM NATURAL GAS ENGINEER CREATINE KINASE (CK), TOTAL Routine 03/03/2024 10:22 AM NATURAL GAS ENGINEER EGFR STAT 02/29/2024 10:08 AM NATURAL GAS ENGINEER DIFFERENTIAL AUTO STAT 02/29/2024 10:08 AM NATURAL GAS ENGINEER CBC WITH AUTO DIFFERENTIAL STAT 02/29/2024 10:08 AM NATURAL GAS ENGINEER CREATINE KINASE (CK), TOTAL STAT 02/29/2024 10:08 AM NATURAL GAS ENGINEER COMPREHENSIVE METABOLIC PANEL STAT 02/29/2024 10:08 AM NATURAL GAS ENGINEER IRON PROFILE W/ IBC Routine 02/26/2024 12:00 PM NATURAL GAS ENGINEER CREATINE KINASE (CK), TOTAL Routine 02/26/2024 12:00 PM NATURAL GAS ENGINEER HEPATITIS C ANTIBODY Routine 05/18/2020 12:15 PM CDT Needle exposure, initial encounter from Last 3 Months or Most Recently Relevant to Health Maintenance Results * (ABNORMAL) CBC with auto differential (05/03/2024 9:47 AM CDT) Pathologist [facility] WBC 6.4 3.8 - 10.8 Thousand/u L [...] Monocyte abs 435 200 - 950 cells/uL [facility] Eosinophils, abs 992(H) 15 - 500 cells/uL [facility] Basophils, abs 90 0 - 200 cells/uL [facility] Neutrophils 46.2 % [facility] Lymphocyte pct 30.1 % [facility] Monocytes 6.8 % [facility] Eosinophils 15.5 % [facility] Basophils 1.4 % [facility] Blood 05/03/2024 9:47 AM CDT 05/03/2024 9:47 AM CDT Narrative [facility] - 05/03/2024 5:04 PM CDT FASTING:NO FASTING: NO Pam Negrete HOUSEKEEPER/LAUNDRY ASSISTANT LAB BLOOD ORDERABLE S Final Result [facility]OO [facility] [id number] [place] [address] * Basic metabolic panel (05/03/2024 9:47 AM CDT) [facility] Glucose 105 65 - 139 mg/dL [facility] Comment: Non-fasting reference interval BUN 15 7 - 25 mg/dL [facility] Creatinine 1.01 0.50 - 1.03 mg/dL [facility] eGFR 66 > OR = 60 mL/min/1.7 3m2 [facility] BUN/creat ratio SEE NOTE: 6 - 22 (calc) [facility] Comment: Not Reported: BUN and Creatinine are within reference range. Sodium 138 135 - 146 mmol/L [facility] Potassium, pl 4.8 3.5 - 5.3 mmol/L [facility] Chloride 103 98 - 110 mmol/L [facility] CO2 25 20 - 32 mmol/L [facility] Calcium 9.2 8.6 - 10.4 mg/dL [facility] Blood 05/03/2024 9:47 AM CDT 05/03/2024 9:47 AM CDT Narrative [facility] - 05/03/2024 5:04 PM CDT FASTING:NO FASTING: NO us Pam Negrete NP LAB BLOOD ORDERABLE S Final [facility] [address] [place] [address] * Glucose, random (Outreach) (04/26/2024 9:16 AM [...] ORDERABLES Final Res ult Performing Organization Address City/[facility]/ZIP Co de Phone Number [facility] Department [place] [address] * (ABNORMAL) eGFR (04/26/2024 9:16 AM CDT) [...] of Race in Diagnosing Kidney Disease, JASN 202). The CKD-EPI equation should not be used for patients with unstable renal function and has not been validated in children and those over 70. Current interpretive data was last reviewed 2020. Blood 04/26/2024 9:16 AM CDT 04/26/2024 2:44 PM CDT us Gato Chatterjee MD LAB BLOOD ORDERABLES Final Res ult [facility] [place] [address] * (ABNORMAL) Comprehensive metabolic panel, without glucose (Outreach) (04/26/2024 9:16 AM CDT) Sodium 138 135 - 145 mmol/L Potassium, pl 4.9 3.3 - 4.9 mmol/L [facility] Chloride 105 97 - 110 mmol/L [facility] CO2 22 22 - 32 mmol/L [facility] Anion gap 11 2 - 15 mmol/L [facility] BUN 20 6 - 25 mg/dL [facility] Creatinine 1.14(H) 0.60 - 1.10 mg/dL [facility] Calcium 9.2 8.5 - 10.3 mg/dL [facility] Protein, pl 6.9 6.5 - 8.5 g/dL [facility] Albumin 4.3 3.5 - 5.0 g/dL [facility] Bilirubin, total <0.2 0.1 - 1.2 mg/dL [facility] Alk phos 82 40 - 130 Units/L [facility] AST 21 10 - 45 Units/L [facility] ALT 14 7 - 45 Units/L [facility] Blood 04/26/2024 9:16 AM CDT 04/26/2024 2:33 PM CDT us Gato Chatterjee MD LAB BLOOD ORDERABLES Final Res ult Performing Organization Address City/[facility]/ZIP Co de Phone Number [facility] [place] [address] * Erythrocyte sedimentation rate (04/26/2024 9:16 AM CDT) [facility] Erythrocyte sedimentation rate 25 1 - 30 mm/hr Blood 04/26/2024 9:16 AM CDT 04/26/2024 2:35 PM CDT Gato Chatterjee MD LAB BLOOD ORDERABLES Final Res ult Performing Organization Address [facility] Co de Phone Number [facility] [place] [address] * (ABNORMAL) CBC without differential (04/26/2024 9:16 AM CDT) [facility] WBC 8.0 3.8 - 9.9 K/cumm Hgb 9.0(L) 11.9 - 15.5 g/dL [facility] Hct 28.8(L) 35.6 - 45.5 % [facility] Plt 457(H) 150 - 400 K/cumm [facility] MPV 10.7 9.1 - 12.3 fL [facility] RBC 3.66(L) 3.90 - 5.20 M/cumm [facility] MCV 78.7(L) 81.3 - 96.4 fL [facility] MCH 24.6(L) 27.1 - 33.3 pg [facility] MCHC 31.3(L) 32.3 - 35.7 g/dL [facility] RDW CV 15.3(H) 11.1 - 14.9 % [facility] RDW SD 43.8 35.7 - 48.1 fL [facility] NRBC abs 0.00 0.00 - 0.01 K/cumm [facility] Blood 04/26/2024 9:16 AM CDT 04/26/2024 2:35 PM CDT Gato Chatterjee MD LAB BLOOD ORDERABLES Final Res ult Performing Organization Address [facility] Co de Phone Number [facility] [place] [address] * CRP (acute phase) (04/26/2024 9:16 AM CDT) Pathologist [facility] CRP 1.8 <=10.0 mg/L Blood 04/26/2024 9:16 AM CDT 04/26/2024 2:33 PM CDT Gato Chatterjee MD LAB BLOOD ORDERABLES Final Res ult Performing Organization Address [facility] Co de Phone Number [facility] [place] [address] * Creatine kinase (CK), total (04/26/2024 9:16 AM CDT) [facility] CK 65 30 - 200 Units/L Blood 04/26/2024 9:16 AM CDT 04/26/2024 2:33 PM CDT Gato Chatterjee MD LAB BLOOD ORDERABLES Final Res ult Performing Organization Address [facility] Co de Phone Number [facility] [place] [address] * (ABNORMAL) Differential, auto (04/20/2024 3:42 PM NATURAL GAS ENGINEER) Pathologist [facility] Neutrophil abs 1.4(L) 1.5 - 6.5 K/cumm Imm gran abs 0.1 0.0 - 0.1 K/cumm [facility] Lymphocyte abs 2.7 0.8 - 3.3 K/cumm [facility] Monocyte abs 1.2(H) 0.2 - 0.8 K/cumm [facility] Eosinophil abs 1.1(H) 0.0 - 0.5 K/cumm [facility] Basophil abs 0.1 0.0 - 0.1 K/cumm [facility] Neutrophil pct 20.9 % [facility] Comment: Interpretive Data Percent cell count reference ranges are not reported, since discordance with absolute values may lead to misinterpretation of CBC data. Current Interpretive Data was last revised on 2017. Imm gran pct 1.2 % [facility] Comment: Interpretive Data Percent cell count reference ranges are not reported, since discordance with absolute values may lead to misinterpretation of CBC data. Current Interpretive Data was last revised on 2017. Lymphocyte pct 41.2 % [facility] Comment: Interpretive Data Percent cell count reference ranges are not reported, since discordance with absolute values may lead to misinterpretation of CBC data. Current Interpretive Data was last revised on 2017. Monocyte pct 18.2 % [facility] Comment: Interpretive Data Percent cell count reference ranges are not reported, since discordance with absolute values may lead to misinterpretation of CBC data. Current Interpretive Data was last revised on 2017. Eosinophil pct 16.8 % [facility] Comment: Interpretive Data Percent cell count reference ranges are not reported, since discordance with absolute values may lead to misinterpretation of CBC data. Current Interpretive Data was last revised on 2017. Basophil pct 1.7 % [facility] Comment: Interpretive Data Percent cell count reference ranges are not reported, since discordance with absolute values may lead to misinterpretation of CBC data. Current Interpretive Data was last revised on 2017. Blood 04/20/2024 3:42 PM NATURAL GAS ENGINEER 04/20/2024 6:12 PM NATURAL GAS ENGINEER us Gato Chatterjee MD LAB BLOOD ORDERABLES Final Res ult [facility] [place] [address] * (ABNORMAL) CBC with auto differential (04/20/2024 3:42 PM NATURAL GAS ENGINEER) WBC 6.7 3.8 - 9.9 K/cumm Hgb 9.1(L) 11.9 - 15.5 g/dL [facility] Hct 29.4(L) 35.6 - 45.5 % [facility] Plt 520(H) 150 - 400 K/cumm [facility] MPV 10.5 9.1 - 12.3 fL [facility] RBC 3.66(L) 3.90 - 5.20 M/cumm [facility] MCV 80.3(L) 81.3 - 96.4 fL [facility] MCH 24.9(L) 27.1 - 33.3 pg [facility] MCHC 31.0(L) 32.3 - 35.7 g/dL [facility] RDW CV 14.6 11.1 - 14.9 % [facility] RDW SD 43.4 35.7 - 48.1 fL [facility] NRBC abs 0.00 0.00 - 0.01 K/cumm [facility] Blood 04/20/2024 3:42 PM [employer] 04/20/2024 6:12 PM [employer] us Gato Chatterjee MD LAB BLOOD ORDERABLES Final Res ult [facility] [place] [address] * eGFR (04/18/2024 11:33 AM [employer]) eGFR 80 >=60 mL/min/1. 73 m2 Comment: [...] reviewed 2020. Blood 04/18/2024 11:3 3 AM [employer] 04/18/2024 4:01 PM [employer] Gato Chatterjee MD LAB BLOOD ORDERABLES Final Res ult Performing Organization Address [facility]/ZIP Co de Phone Number [facility] [place] [address] * (ABNORMAL) CBC with auto differential (04/18/2024 11:33 AM NATURAL GAS ENGINEER) WBC 4.6 3.8 - 9.9 K/cumm Hgb 8.9(L) 11.9 - 15.5 g/dL [facility] Hct 29.3(L) 35.6 - 45.5 % [facility] Plt 559(H) 150 - 400 K/cumm [facility] MPV 10.8 9.1 - 12.3 fL [facility] RBC 3.61(L) 3.90 - 5.20 M/cumm [facility] MCV 81.2(L) 81.3 - 96.4 fL [facility] MCH 24.7(L) 27.1 - 33.3 pg [facility] MCHC 30.4(L) 32.3 - 35.7 g/dL [facility] RDW CV 14.6 11.1 - 14.9 % [facility] RDW SD 43.5 35.7 - 48.1 fL [facility] NRBC abs 0.00 0.00 - 0.01 K/cumm [facility] Blood 04/18/2024 11:3 3 AM NATURAL GAS ENGINEER 04/18/2024 3:48 PM NATURAL GAS ENGINEER Gato Chatterjee MD LAB BLOOD ORDERABLES Edited Re sult - Final Performing Organization Address City/[facility]/ZIP Co de Phone Number [facility] [place] [address] * (ABNORMAL) Manual Differential (04/18/2024 11:33 AM NATURAL GAS ENGINEER) Differential Manual Cells Counted 139 [facility] Neutrophil abs 0.1(C) 1.5 - 6.5 K/cumm [facility] Comment:Critical result call ed to and read back by WENDY HARRELL MD on 04 18 2024 at 1722 to Pal Justice. Imm gran abs 0.0 0.0 - 0.1 K/cumm [facility] Lymphocyte abs 2.6 0.8 - 3.3 K/cumm [facility] Monocyte abs 0.9(H) 0.2 - 0.8 K/cumm [facility] Eosinophil abs 0.8(H) 0.0 - 0.5 K/cumm [facility] Basophil abs 0.2(H) 0.0 - 0.1 K/cumm [facility] Neutrophil pct 1.4 % [facility] Comment: Interpretive Data Percent cell count reference ranges are not reported, since discordance with absolute values may lead to misinterpretation of CBC data. Current Interpretive Data was last revised on 2017. Lymphocyte pct 54.8 % [facility] Comment: Interpretive Data Percent cell count reference ranges are not reported, since discordance with absolute values may lead to misinterpretation of CBC data. Current Interpretive Data was last revised on 2017. Monocyte pct 19.4 % [facility] Comment: Interpretive Data Percent cell count reference ranges are not reported, since discordance with absolute values may lead to misinterpretation of CBC data. Current Interpretive Data was last revised on 2017. Eosinophil pct 18.0 % [facility] Comment: Interpretive Data Percent cell count reference ranges are not reported, since discordance with absolute values may lead to misinterpretation of CBC data. Current Interpretive Data was last revised on 2017. Basophil pct 4.3 % [facility] Comment: Interpretive Data Percent cell count reference ranges are not reported, since discordance with absolute values may lead to misinterpretation of CBC data. Current Interpretive Data was last revised on 2017. Myelocyte pct 0.7(H) 0.0 - 0.0 % [facility] Variant lymph pct 1.4(H) 0.0 - 0.0 % [facility] Blood 04/18/2024 11:3 3 AM NATURAL GAS ENGINEER 04/18/2024 4:05 PM NATURAL GAS ENGINEER Gato Chatterjee MD LAB BLOOD ORDERABLES Final Res ult Performing Organization Address City/[facility] Co de Phone Number [facility] [place] [address] * Creatine kinase (CK), total (04/18/2024 11:33 AM NATURAL GAS ENGINEER) Pathologist [facility] CK 35 30 - 200 Units/L Blood 04/18/2024 11:3 3 AM NATURAL GAS ENGINEER 04/18/2024 3:49 PM NATURAL GAS ENGINEER Gato Chatterjee MD LAB BLOOD ORDERABLES Final Res ult Performing Organization Address [facility] de Phone Number [facility] [place] [address] * Comprehensive metabolic panel (04/18/2024 11:33 AM NATURAL GAS ENGINEER) Pathologist [facility] Sodium 140 135 - 145 mmol/L Potassium, pl 3.7 3.3 - 4.9 mmol/L [facility] Chloride 104 97 - 110 mmol/L [facility] CO2 25 22 - 32 mmol/L [facility] Anion gap 11 2 - 15 mmol/L [facility] BUN 19 6 - 25 mg/dL [facility] Creatinine 0.86 0.60 - 1.10 mg/dL [facility] Glucose 101 70 - 199 mg/dL [facility] Comment: Interpretive Data Fasting glucose >/= 126 [...] 2022. Calcium 9.5 8.5 - 10.3 mg/dL [facility] Bilirubin, total <0.2 0.1 - 1.2 mg/dL [facility] Protein, pl 7.0 6.5 - 8.5 g/dL [facility] Albumin 4.1 3.5 - 5.0 g/dL [facility] Alk phos 87 40 - 130 Units/L [facility] ALT 15 7 - 45 Units/L [facility] AST 14 10 - 45 Units/L [facility] Blood 04/18/2024 11:3 3 AM NATURAL GAS ENGINEER 04/18/2024 3:49 PM NATURAL GAS ENGINEER us Gato Chatterjee MD LAB BLOOD ORDERABLES Final Res ult [facility] [place] [address] * (ABNORMAL) Differential, auto (04/15/2024 11:36 AM NATURAL GAS ENGINEER) Neutrophil abs 0.0(C) 1.5 - 6.5 K/cumm Comment:waiting 4 call back. Critical result called to and read back by BRENDA MOROCHO) on 04 15 2024 at 1507 to Jenelle Wallace. Imm gran abs 0.0 0.0 - 0.1 K/cumm [facility] Lymphocyte abs 1.8 0.8 - 3.3 K/cumm [facility] Monocyte abs 1.1(H) 0.2 - 0.8 K/cumm [facility] Eosinophil abs 0.7(H) 0.0 - 0.5 K/cumm [facility] Basophil abs 0.1 0.0 - 0.1 K/cumm [facility] Neutrophil pct 0.0 % [facility] Comment: Interpretive Data Percent cell count reference ranges are not reported, since discordance with absolute values may lead to misinterpretation of CBC data. Current Interpretive Data was last revised on 2017. Imm gran pct 0.2 % [facility] Comment: Interpretive Data Percent cell count reference ranges are not reported, since discordance with absolute values may lead to misinterpretation of CBC data. Current Interpretive Data was last revised on 2017. Lymphocyte pct 49.5 % [facility] Comment: Interpretive Data Percent cell count reference ranges are not reported, since discordance with absolute values may lead to misinterpretation of CBC data. Current Interpretive Data was last revised on 2017. Monocyte pct 29.4 % [facility] Comment: Interpretive Data Percent cell count reference ranges are not reported, since discordance with absolute values may lead to misinterpretation of CBC data. Current Interpretive Data was last revised on 2017. Eosinophil pct 18.7 % [facility] Comment: Interpretive Data Percent cell count reference ranges are not reported, since discordance with absolute values may lead to misinterpretation of CBC data. Current Interpretive Data was last revised on 2017. Basophil pct 2.2 % [facility] Comment: Interpretive Data Percent cell count reference ranges are not reported, since discordance with absolute values may lead to misinterpretation of CBC data. Current Interpretive Data was last revised on 2017. Blood 04/15/2024 11:3 6 AM NATURAL GAS ENGINEER 04/15/2024 1:39 PM NATURAL GAS ENGINEER us Gato Chatterjee MD LAB BLOOD ORDERABLES Final Res ult [facility] [place] [address] * (ABNORMAL) CBC with auto differential (04/15/2024 11:36 AM NATURAL GAS ENGINEER) WBC 3.6(L) 3.8 - 9.9 K/cumm Hgb 8.8(L) 11.9 - 15.5 g/dL [facility] Hct 28.9(L) 35.6 - 45.5 % [facility] Plt 497(H) 150 - 400 K/cumm [facility] MPV 10.1 9.1 - 12.3 fL [facility] RBC 3.55(L) 3.90 - 5.20 M/cumm [facility] MCV 81.4 81.3 - 96.4 fL [facility] MCH 24.8(L) 27.1 - 33.3 pg [facility] MCHC 30.4(L) 32.3 - 35.7 g/dL [facility] RDW CV 14.3 11.1 - 14.9 % [facility] RDW SD 42.8 35.7 - 48.1 fL [facility] NRBC abs 0.00 0.00 - 0.01 K/cumm [facility] Blood 04/15/2024 11:3 6 AM NATURAL GAS ENGINEER 04/15/2024 1:39 PM NATURAL GAS ENGINEER Gato Chatterjee MD LAB BLOOD ORDERABLES Edited Re sult - Final Performing Organization Address [facility] Co de Phone Number [facility] [place] [address] * Creatine kinase (CK), total (04/15/2024 11:36 AM NATURAL GAS ENGINEER) CK 35 30 - 200 Units/L Blood 04/15/2024 11:3 6 AM NATURAL GAS ENGINEER 04/15/2024 1:39 PM NATURAL GAS ENGINEER Gato Chatterjee MD LAB BLOOD ORDERABLES Final Res ult Performing Organization Address [facility] de Phone Number [facility] [place] [address] * Glucose, random (Outreach) (04/11/2024 2:06 PM NATURAL GAS ENGINEER) Glucose 100 70 - 199 mg/dL Comment: [...] last revised 2022. Blood 04/11/2024 2:06 PM NATURAL GAS ENGINEER 04/11/2024 6:42 PM NATURAL GAS ENGINEER Gato Chatterjee MD LAB BLOOD ORDERABLES Final Res ult Performing Organization Address City/[facility] Co de Phone Number [facility] [place] [address] * eGFR (04/11/2024 2:06 PM NATURAL GAS ENGINEER) eGFR 86 >=60 mL/min/1. 73 m2 Comment: [...] last reviewed 2020. Blood 04/11/2024 2:06 PM NATURAL GAS ENGINEER 04/11/2024 6:53 PM NATURAL GAS ENGINEER us Gato Chatterjee MD LAB BLOOD ORDERABLES Final Res ult Performing Organization Address [facility]/ZIP Co de Phone Number [facility] [place] [address] * Comprehensive metabolic panel, without glucose (Outreach) (04/11/2024 2:06 PM NATURAL GAS ENGINEER) [facility] Sodium 142 135 - 145 mmol/L Potassium, pl 4.4 3.3 - 4.9 mmol/L [facility] Chloride 104 97 - 110 mmol/L [facility] CO2 27 22 - 32 mmol/L [facility] Anion gap 11 2 - 15 mmol/L [facility] BUN 17 6 - 25 mg/dL [facility] Creatinine 0.81 0.60 - 1.10 mg/dL [facility] Calcium 9.7 8.5 - 10.3 mg/dL [facility] Protein, pl 7.0 6.5 - 8.5 g/dL [facility] Albumin 4.1 3.5 - 5.0 g/dL [facility] Bilirubin, total 0.2 0.1 - 1.2 mg/dL [facility] Alk phos 90 40 - 130 Units/L [facility] AST 22 10 - 45 Units/L [facility] ALT 21 7 - 45 Units/L [facility] Blood 04/11/2024 2:06 PM NATURAL GAS ENGINEER 04/11/2024 6:42 PM NATURAL GAS ENGINEER us Gato Chatterjee MD LAB BLOOD ORDERABLES Final Res ult [facility] [place] [address] * (ABNORMAL) CBC with auto differential (04/11/2024 2:06 PM NATURAL GAS ENGINEER) [facility] WBC 3.0(L) 3.8 - 9.9 K/cumm Hgb 9.0(L) 11.9 - 15.5 g/dL [facility] Hct 29.0(L) 35.6 - 45.5 % [facility] Plt 468(H) 150 - 400 K/cumm [facility] MPV 10.6 9.1 - 12.3 fL [facility] RBC 3.49(L) 3.90 - 5.20 M/cumm [facility] MCV 83.1 81.3 - 96.4 fL [facility] MCH 25.8(L) 27.1 - 33.3 pg [facility] MCHC 31.0(L) 32.3 - 35.7 g/dL [facility] RDW CV 14.3 11.1 - 14.9 % [facility] RDW SD 43.1 35.7 - 48.1 fL [facility] NRBC abs 0.00 0.00 - 0.01 K/cumm [facility] Blood 04/11/2024 2:06 PM NATURAL GAS ENGINEER 04/11/2024 6:42 PM NATURAL GAS ENGINEER us Gato Chatterjee MD LAB BLOOD ORDERABLES Final Res ult 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 Critical result called to and read back by RODNEY ALBERTO RN on 04 11 2024 at 1952 to Anitha Ram. Lymphocyte abs 1.7 0.8 - 3.3 K/cumm [facility] Monocyte abs 0.7 0.2 - 0.8 K/cumm [facility] Eosinophil abs 0.5 0.0 - 0.5 K/cumm [facility] Basophil abs 0.1 0.0 - 0.1 K/cumm [facility] Neutrophil pct 0.0 % [facility] Comment: Interpretive Data Percent cell count reference ranges are not reported, since discordance with absolute values may lead to misinterpretation of CBC data. Current Interpretive Data was last revised on 2017. Lymphocyte pct 49.9 % [facility] Comment: Interpretive Data Percent cell count reference ranges are not reported, since discordance with absolute values may lead to misinterpretation of CBC data. Current Interpretive Data was last revised on 2017. Monocyte pct 24.1 % [facility] Comment: Interpretive Data Percent cell count reference ranges are not reported, since discordance with absolute values may lead to misinterpretation of CBC data. Current Interpretive Data was last revised on 2017. Eosinophil pct 15.2 % [facility] Comment: Interpretive Data Percent cell count reference ranges are not reported, since discordance with absolute values may lead to misinterpretation of CBC data. Current Interpretive Data was last revised on 2017. Basophil pct 4.5 % [facility] Comment: Interpretive Data Percent cell count reference ranges are not reported, since discordance with absolute values may lead to misinterpretation of CBC data. Current Interpretive Data was last revised on 2017. Variant lymph pct 6.3(H) 0.0 - 0.0 % [facility] Blood 04/11/2024 2:06 PM NATURAL GAS ENGINEER 04/11/2024 6:58 PM NATURAL GAS ENGINEER Gato Chatterjee MD LAB BLOOD ORDERABLES Final Res ult Performing Organization Address City/[facility]/ZIP Co de Phone Number [facility] [place] [address] * Creatine kinase (CK), total (04/11/2024 2:06 PM NATURAL GAS ENGINEER) [facility] CK 35 30 - 200 Units/L Blood 04/11/2024 2:06 PM NATURAL GAS ENGINEER 04/11/2024 6:42 PM NATURAL GAS ENGINEER Gato Chatterjee MD LAB BLOOD ORDERABLES Final Res ult Performing Organization Address City/[facility] Co de Phone Number [facility] [place] [address] * eGFR (04/07/2024 2:00 PM NATURAL GAS ENGINEER) [facility] eGFR 80 >=60 mL/min/1. 73 m2 Comment: [...] last reviewed 2020. Blood 04/07/2024 2:00 PM NATURAL GAS ENGINEER 04/07/2024 5:26 PM NATURAL GAS ENGINEER us Gato Chatterjee MD LAB BLOOD ORDERABLES Final Res ult [facility] [place] [address] * (ABNORMAL) Differential, auto (04/07/2024 2:00 PM NATURAL GAS ENGINEER) Neutrophil abs 0.7(L) 1.5 - 6.5 K/cumm Imm gran abs 0.0 0.0 - 0.1 K/cumm [facility] Lymphocyte abs 1.6 0.8 - 3.3 K/cumm [facility] Monocyte abs 1.0(H) 0.2 - 0.8 K/cumm [facility] Eosinophil abs 0.5 0.0 - 0.5 K/cumm [facility] Basophil abs 0.1 0.0 - 0.1 K/cumm [facility] Neutrophil pct 19.2 % [facility] Comment: Interpretive Data Percent cell count reference ranges are not reported, since discordance with absolute values may lead to misinterpretation of CBC data. Current Interpretive Data was last revised on 2017. Imm gran pct 0.3 % [facility] Comment: Interpretive Data Percent cell count reference ranges are not reported, since discordance with absolute values may lead to misinterpretation of CBC data. Current Interpretive Data was last revised on 2017. Lymphocyte pct 41.0 % [facility] Comment: Interpretive Data Percent cell count reference ranges are not reported, since discordance with absolute values may lead to misinterpretation of CBC data. Current Interpretive Data was last revised on 2017. Monocyte pct 25.2 % [facility] Comment: Interpretive Data Percent cell count reference ranges are not reported, since discordance with absolute values may lead to misinterpretation of CBC data. Current Interpretive Data was last revised on 2017. Eosinophil pct 12.2 % [facility] Comment: Interpretive Data Percent cell count reference ranges are not reported, since discordance with absolute values may lead to misinterpretation of CBC data. Current Interpretive Data was last revised on 2017. Basophil pct 2.1 % [facility] Comment: Interpretive Data Percent cell count reference ranges are not reported, since discordance with absolute values may lead to misinterpretation of CBC data. Current Interpretive Data was last revised on 2017. Blood 04/07/2024 2:00 PM NATURAL GAS ENGINEER 04/07/2024 4:48 PM NATURAL GAS ENGINEER us Gato Chatterjee MD LAB BLOOD ORDERABLES Final Res ult [facility] [place] [address] * (ABNORMAL) CBC with auto differential (04/07/2024 2:00 PM NATURAL GAS ENGINEER) WBC 3.9 3.8 - 9.9 K/cumm Hgb 8.1(L) 11.9 - 15.5 g/dL [facility] Hct 26.4(L) 35.6 - 45.5 % [facility] Plt 371 150 - 400 K/cumm [facility] MPV 10.6 9.1 - 12.3 fL [facility] RBC 3.14(L) 3.90 - 5.20 M/cumm [facility] MCV 84.1 81.3 - 96.4 fL [facility] MCH 25.8(L) 27.1 - 33.3 pg [facility] MCHC 30.7(L) 32.3 - 35.7 g/dL [facility] RDW CV 14.4 11.1 - 14.9 % [facility] RDW SD 43.8 35.7 - 48.1 fL [facility] NRBC abs 0.00 0.00 - 0.01 K/cumm [facility] Blood 04/07/2024 2:00 PM NATURAL GAS ENGINEER 04/07/2024 4:48 PM NATURAL GAS ENGINEER Gato Chatterjee MD LAB BLOOD ORDERABLES Final Res ult [facility] [place] [address] * Creatine kinase (CK), total (04/07/2024 2:00 PM NATURAL GAS ENGINEER) Pathologist [facility] CK 42 30 - 200 Units/L Blood 04/07/2024 2:00 PM NATURAL GAS ENGINEER 04/07/2024 4:47 PM NATURAL GAS ENGINEER Gato Chatterjee MD LAB BLOOD ORDERABLES Final Res ult Performing Organization Address City/[facility]/ZIP Co de Phone Number [facility] [place] [address] * Comprehensive metabolic panel (04/07/2024 2:00 PM NATURAL GAS ENGINEER) [facility] Sodium 137 135 - 145 mmol/L Potassium, pl 4.3 3.3 - 4.9 mmol/L [facility] Chloride 102 97 - 110 mmol/L [facility] CO2 25 22 - 32 mmol/L [facility] Anion gap 10 2 - 15 mmol/L [facility] BUN 15 6 - 25 mg/dL [facility] Creatinine 0.86 0.60 - 1.10 mg/dL [facility] Glucose 95 70 - 199 mg/dL [facility] Comment: Interpretive Data Fasting glucose >/= 126 [...] 2022. Calcium 9.0 8.5 - 10.3 mg/dL [facility] Bilirubin, total 0.2 0.1 - 1.2 mg/dL [facility] Protein, pl 6.5 6.5 - 8.5 g/dL [facility] Albumin 4.0 3.5 - 5.0 g/dL [facility] Alk phos 82 40 - 130 Units/L [facility] ALT 23 7 - 45 Units/L [facility] AST 23 10 - 45 Units/L [facility] Blood 04/07/2024 2:00 PM NATURAL GAS ENGINEER 04/07/2024 4:47 PM NATURAL GAS ENGINEER us Gato Chatterjee MD LAB BLOOD ORDERABLES Final Res ult [facility] [place] [address] * eGFR (04/02/2024 5:10 AM NATURAL GAS ENGINEER) eGFR >90 >=60 mL/min/1. 73 m2 Comment: [...] last reviewed 2020. Blood 04/02/2024 5:10 AM NATURAL GAS ENGINEER 04/02/2024 6:44 AM NATURAL GAS ENGINEER us Vonda Whitney NP LAB BLOOD ORDERABLES Final Result [facility] [place] [address] * (ABNORMAL) Differential, auto (04/02/2024 5:10 AM NATURAL GAS ENGINEER) Neutrophil abs 1.0(L) 1.5 - 6.5 K/cumm Imm gran abs 0.0 0.0 - 0.1 K/cumm [facility] Lymphocyte abs 0.9 0.8 - 3.3 K/cumm [facility] Monocyte abs 0.7 0.2 - 0.8 K/cumm [facility] Eosinophil abs 0.4 0.0 - 0.5 K/cumm [facility] Basophil abs 0.1 0.0 - 0.1 K/cumm [facility] Neutrophil pct 32.0 % [facility] Comment: Interpretive Data Percent cell count reference ranges are not reported, since discordance with absolute values may lead to misinterpretation of CBC data. Current Interpretive Data was last revised on 2017. Imm gran pct 1.3 % [facility] Comment: Interpretive Data Percent cell count reference ranges are not reported, since discordance with absolute values may lead to misinterpretation of CBC data. Current Interpretive Data was last revised on 2017. Lymphocyte pct 29.5 % [facility] Comment: Interpretive Data Percent cell count reference ranges are not reported, since discordance with absolute values may lead to misinterpretation of CBC data. Current Interpretive Data was last revised on 2017. Monocyte pct 23.5 % [facility] Comment: Interpretive Data Percent cell count reference ranges are not reported, since discordance with absolute values may lead to misinterpretation of CBC data. Current Interpretive Data was last revised on 2017. Eosinophil pct 12.1 % [facility] Comment: Interpretive Data Percent cell count reference ranges are not reported, since discordance with absolute values may lead to misinterpretation of CBC data. Current Interpretive Data was last revised on 2017. Basophil pct 1.6 % [facility] Comment: Interpretive Data Percent cell count reference ranges are not reported, since discordance with absolute values may lead to misinterpretation of CBC data. Current Interpretive Data was last revised on 2017. Blood 04/02/2024 5:10 AM NATURAL GAS ENGINEER 04/02/2024 6:44 AM NATURAL GAS ENGINEER Vonda Whitney NP LAB BLOOD ORDERABLES Final Result [facility] [place] [address] * (ABNORMAL) CBC with auto differential (04/02/2024 5:10 AM NATURAL GAS ENGINEER) WBC 3.2(L) 3.8 - 9.9 K/cumm Hgb 7.4(L) 11.9 - 15.5 g/dL [facility] Hct 24.4(L) 35.6 - 45.5 % [facility] Plt 336 150 - 400 K/cumm [facility] MPV 9.8 9.1 - 12.3 fL [facility] RBC 2.84(L) 3.90 - 5.20 M/cumm [facility] MCV 85.9 81.3 - 96.4 fL [facility] MCH 26.1(L) 27.1 - 33.3 pg [facility] MCHC 30.3(L) 32.3 - 35.7 g/dL [facility] RDW CV 14.4 11.1 - 14.9 % [facility] RDW SD 45.2 35.7 - 48.1 fL [facility] NRBC abs 0.00 0.00 - 0.01 K/cumm [facility] Blood 04/02/2024 5:10 AM NATURAL GAS ENGINEER 04/02/2024 6:44 AM NATURAL GAS ENGINEER Vonda Whitney NP LAB BLOOD ORDERABLES Final Result Performing Organization Address City/[facility] Co de Phone Number [facility] [place] [address] * Basic metabolic panel (04/02/2024 5:10 AM NATURAL GAS ENGINEER) [facility] Sodium 144 135 - 145 mmol/L Potassium, pl 4.3 3.3 - 4.9 mmol/L [facility] Chloride 105 97 - 110 mmol/L [facility] CO2 30 22 - 32 mmol/L [facility] Anion gap 9 2 - 15 mmol/L [facility] BUN 8 6 - 25 mg/dL [facility] Creatinine 0.77 0.60 - 1.10 mg/dL [facility] Glucose 89 70 - 199 mg/dL [facility] Comment: Interpretive Data Fasting glucose >/= 126 [...] 2022. Calcium 9.0 8.5 - 10.3 mg/dL [facility] Blood 04/02/2024 5:10 AM NATURAL GAS ENGINEER 04/02/2024 6:44 AM NATURAL GAS ENGINEER Vonda Whitney NP LAB BLOOD ORDERABLES Final Result Performing Organization Address City/[facility]/ZIP Co de Phone Number [facility] [place] [address] * eGFR (04/01/2024 5:46 AM NATURAL GAS ENGINEER) Pathologist [facility] eGFR 90 >=60 mL/min/1. 73 m2 Comment: [...] of Race in Diagnosing Kidney Disease, JASN 202). The CKD-EPI equation should not be used for patients with unstable renal function and has not been validated in children and those over 70. Current interpretive data was last reviewed 2020. Blood 04/01/2024 5:46 AM NATURAL GAS ENGINEER 04/01/2024 6:45 AM NATURAL GAS ENGINEER Vonda Whitney NP LAB BLOOD ORDERABLES Final Result [facility] [place] [address] * (ABNORMAL) Differential, auto (04/01/2024 5:46 AM NATURAL GAS ENGINEER) Neutrophil abs 0.8(L) 1.5 - 6.5 K/cumm Imm gran abs 0.0 0.0 - 0.1 K/cumm [facility] Lymphocyte abs 0.9 0.8 - 3.3 K/cumm [facility] Monocyte abs 0.7 0.2 - 0.8 K/cumm [facility] Eosinophil abs 0.4 0.0 - 0.5 K/cumm [facility] Basophil abs 0.0 0.0 - 0.1 K/cumm [facility] Neutrophil pct 27.8 % [facility] Comment: Interpretive Data Percent cell count reference ranges are not reported, since discordance with absolute values may lead to misinterpretation of CBC data. Current Interpretive Data was last revised on 2017. Imm gran pct 0.4 % [facility] Comment: Interpretive Data Percent cell count reference ranges are not reported, since discordance with absolute values may lead to misinterpretation of CBC data. Current Interpretive Data was last revised on 2017. Lymphocyte pct 32.4 % [facility] Comment: Interpretive Data Percent cell count reference ranges are not reported, since discordance with absolute values may lead to misinterpretation of CBC data. Current Interpretive Data was last revised on 2017. Monocyte pct 23.2 % [facility] Comment: Interpretive Data Percent cell count reference ranges are not reported, since discordance with absolute values may lead to misinterpretation of CBC data. Current Interpretive Data was last revised on 2017. Eosinophil pct 14.8 % [facility] Comment: Interpretive Data Percent cell count reference ranges are not reported, since discordance with absolute values may lead to misinterpretation of CBC data. Current Interpretive Data was last revised on 2017. Basophil pct 1.4 % [facility] Comment: Interpretive Data Percent cell count reference ranges are not reported, since discordance with absolute values may lead to misinterpretation of CBC data. Current Interpretive Data was last revised on 2017. Blood 04/01/2024 5:46 AM NATURAL GAS ENGINEER 04/01/2024 6:45 AM NATURAL GAS ENGINEER us Vonda Whitney NP LAB BLOOD ORDERABLES Final Result [facility] Department [place] [address] * (ABNORMAL) CBC with auto differential (04/01/2024 5:46 AM NATURAL GAS ENGINEER) WBC 2.8(L) 3.8 - 9.9 K/cumm Hgb 7.2(L) 11.9 - 15.5 g/dL [facility] Hct 23.2(L) 35.6 - 45.5 % [facility] Plt 313 150 - 400 K/cumm [facility] MPV 9.9 9.1 - 12.3 fL [facility] RBC 2.75(L) 3.90 - 5.20 M/cumm [facility] MCV 84.4 81.3 - 96.4 fL [facility] MCH 26.2(L) 27.1 - 33.3 pg [facility] MCHC 31.0(L) 32.3 - 35.7 g/dL [facility] RDW CV 14.6 11.1 - 14.9 % [facility] RDW SD 44.8 35.7 - 48.1 fL [facility] NRBC abs 0.00 0.00 - 0.01 K/cumm [facility] Blood 04/01/2024 5:46 AM NATURAL GAS ENGINEER 04/01/2024 6:45 AM NATURAL GAS ENGINEER Vonda Whitney NP LAB BLOOD ORDERABLES Final Result Performing Organization Address [facility]/ZIP Co de Phone Number [facility] [place] [address] * (ABNORMAL) Erythrocyte sedimentation rate (04/01/2024 5:46 AM NATURAL GAS ENGINEER) [facility] Erythrocyte sedimentation rate 46(H) 1 - 30 mm/hr Blood 04/01/2024 5:46 AM NATURAL GAS ENGINEER 04/01/2024 6:45 AM NATURAL GAS ENGINEER Vonda Whitney NP LAB BLOOD ORDERABLES Final Result Performing Organization Address City/[facility]/ZIP Co de Phone Number [facility] Department [place] [address] * Basic metabolic panel (04/01/2024 5:46 AM NATURAL GAS ENGINEER) [facility] Sodium 142 135 - 145 mmol/L Potassium, pl 4.2 3.3 - 4.9 mmol/L [facility] Chloride 107 97 - 110 mmol/L [facility] CO2 28 22 - 32 mmol/L [facility] Anion gap 7 2 - 15 mmol/L [facility] BUN 9 6 - 25 mg/dL [facility] Creatinine 0.78 0.60 - 1.10 mg/dL [facility] Glucose 86 70 - 199 mg/dL [facility] Comment: Interpretive Data Fasting glucose >/= 126 [...] 2022. Calcium 8.5 8.5 - 10.3 mg/dL [facility] Blood 04/01/2024 5:46 AM NATURAL GAS ENGINEER 04/01/2024 6:45 AM NATURAL GAS ENGINEER us Vonda Whitney HOUSEKEEPER/LAUNDRY ASSISTANT LAB BLOOD ORDERABLES Final Result [facility] Department [place] [address] * (ABNORMAL) Differential, auto (04/01/2024 4:30 AM NATURAL GAS ENGINEER) Neutrophil abs 0.8(L) 1.5 - 6.5 K/cumm Imm gran abs 0.0 0.0 - 0.1 K/cumm [facility] Lymphocyte abs 0.9 0.8 - 3.3 K/cumm [facility] Monocyte abs 0.7 0.2 - 0.8 K/cumm [facility] Eosinophil abs 0.4 0.0 - 0.5 K/cumm [facility] Basophil abs 0.0 0.0 - 0.1 K/cumm [facility] Neutrophil pct 26.8 % [facility] Comment: Interpretive Data Percent cell count reference ranges are not reported, since discordance with absolute values may lead to misinterpretation of CBC data. Current Interpretive Data was last revised on 2017. Imm gran pct 0.4 % [facility] Comment: Interpretive Data Percent cell count reference ranges are not reported, since discordance with absolute values may lead to misinterpretation of CBC data. Current Interpretive Data was last revised on 2017. Lymphocyte pct 33.2 % [facility] Comment: Interpretive Data Percent cell count reference ranges are not reported, since discordance with absolute values may lead to misinterpretation of CBC data. Current Interpretive Data was last revised on 2017. Monocyte pct 23.2 % [facility] Comment: Interpretive Data Percent cell count reference ranges are not reported, since discordance with absolute values may lead to misinterpretation of CBC data. Current Interpretive Data was last revised on 2017. Eosinophil pct 15.0 % [facility] Comment: Interpretive Data Percent cell count reference ranges are not reported, since discordance with absolute values may lead to misinterpretation of CBC data. Current Interpretive Data was last revised on 2017. Basophil pct 1.4 % [facility] Comment: Interpretive Data Percent cell count reference ranges are not reported, since discordance with absolute values may lead to misinterpretation of CBC data. Current Interpretive Data was last revised on 2017. Blood 04/01/2024 4:30 AM NATURAL GAS ENGINEER 04/01/2024 6:45 AM NATURAL GAS ENGINEER Vonda Whitney NP LAB BLOOD ORDERABLES Final Result [facility] [place] [address] * (ABNORMAL) CBC with auto differential (04/01/2024 4:30 AM NATURAL GAS ENGINEER) WBC 2.8(L) 3.8 - 9.9 K/cumm Hgb 7.3(L) 11.9 - 15.5 g/dL [facility] Hct 23.3(L) 35.6 - 45.5 % [facility] Plt 318 150 - 400 K/cumm [facility] MPV 9.8 9.1 - 12.3 fL [facility] RBC 2.76(L) 3.90 - 5.20 M/cumm [facility] MCV 84.4 81.3 - 96.4 fL [facility] MCH 26.4(L) 27.1 - 33.3 pg [facility] MCHC 31.3(L) 32.3 - 35.7 g/dL [facility] RDW CV 14.6 11.1 - 14.9 % [facility] RDW SD 45.0 35.7 - 48.1 fL [facility] NRBC abs 0.00 0.00 - 0.01 K/cumm [facility] Blood 04/01/2024 4:30 AM NATURAL GAS ENGINEER 04/01/2024 6:45 AM NATURAL GAS ENGINEER Vonda Whitney NP LAB BLOOD ORDERABLES Final Result Performing Organization Address City/[facility]/ZIP Co de Phone Number [facility] [place] [employer] [place] [address] * (ABNORMAL) Hemoglobin and hematocrit (03/31/2024 11:48 AM NATURAL GAS ENGINEER) [facility] Hgb 7.4(L) 11.9 - 15.5 g/dL Hct 24.0(L) 35.6 - 45.5 % [facility] Blood 03/31/2024 11:4 8 AM NATURAL GAS ENGINEER 03/31/2024 12:01 PM NATURAL GAS ENGINEER Narrative [facility] - 03/31/2024 12:08 PM NATURAL GAS ENGINEER Please obtain 1 hour after RBC complete Vonda Whitney NP LAB BLOOD ORDERABLES Final Result [facility] [place] [address] * Transfuse RBC (03/31/2024 9:41 AM NATURAL GAS ENGINEER) Blood Efrain Iglesias MD BLOOD TRANSFUSION OR DERABLES Final Result [facility] [place] [address] * Prepare RBC: 1 Units (03/31/2024 6:05 AM NATURAL GAS ENGINEER) Product code [id number] Unit Number [id number] [facility] Product Blood Type APOS [facility] Dispense Status PRESUMED TRANSFUSED [facility] Blood 03/31/2024 6:05 AM NATURAL GAS ENGINEER 03/31/2024 6:04 AM NATURAL GAS ENGINEER Narrative [facility] - 03/31/2024 8:00 PM NATURAL GAS ENGINEER Are special requirements needed? (All products are leukoreduced and CMV- safe)- >No Date required:-[id number] LRRBC # of [id number] Reasons:-Hgb <7 g/dL} us Efrain Iglesias MD BLOOD BANK PRODUCT O RDERABLES Final Result [facility] Department [place] [address] * eGFR (03/31/2024 6:04 AM NATURAL GAS ENGINEER) eGFR 75 >=60 mL/min/1. 73 m2 Comment: [...] last reviewed 2020. Blood 03/31/2024 6:04 AM NATURAL GAS ENGINEER 03/31/2024 6:21 AM NATURAL GAS ENGINEER us Vonda Whitney NP LAB BLOOD ORDERABLES Final Result [facility] [place] [address] * (ABNORMAL) Erythrocyte sedimentation rate (03/31/2024 6:04 AM NATURAL GAS ENGINEER) [facility] Erythrocyte sedimentation rate 84(H) 1 - 30 mm/hr Blood 03/31/2024 6:04 AM NATURAL GAS ENGINEER 03/31/2024 6:28 AM NATURAL GAS ENGINEER Efrain Iglesias MD LAB BLOOD ORDERABLES Final Result Performing Organization Address City/[facility] Co de Phone Number [facility] [place] [address] * (ABNORMAL) CBC without differential (03/31/2024 6:04 AM NATURAL GAS ENGINEER) [facility] WBC 3.2(L) 3.8 - 9.9 K/cumm Hgb 6.3(C) 11.9 - 15.5 g/dL [facility] Comment:Consistent with prev ious results Hct 21.5(L) 35.6 - 45.5 % [facility] Plt 315 150 - 400 K/cumm [facility] MPV 9.5 9.1 - 12.3 fL [facility] RBC 2.47(L) 3.90 - 5.20 M/cumm [facility] MCV 87.0 81.3 - 96.4 fL [facility] MCH 25.5(L) 27.1 - 33.3 pg [facility] MCHC 29.3(L) 32.3 - 35.7 g/dL [facility] RDW CV 14.4 11.1 - 14.9 % [facility] RDW SD 45.4 35.7 - 48.1 fL [facility] NRBC abs 0.00 0.00 - 0.01 K/cumm [facility] Blood 03/31/2024 6:04 AM NATURAL GAS ENGINEER 03/31/2024 6:21 AM NATURAL GAS ENGINEER Vonda Whitney NP LAB BLOOD ORDERABLES Final Result Performing Organization Address [facility] Co de Phone Number [facility] [place] [address] * (ABNORMAL) CRP (acute phase) (03/31/2024 6:04 AM NATURAL GAS ENGINEER) [facility] CRP 25.4(H) <=10.0 mg/L Blood 03/31/2024 6:04 AM NATURAL GAS ENGINEER 03/31/2024 6:21 AM NATURAL GAS ENGINEER Efrain Iglesias MD LAB BLOOD ORDERABLES Final Result Performing Organization Address [facility] de Phone Number [facility] [place] [address] * Creatine kinase (CK), total (03/31/2024 6:04 AM NATURAL GAS ENGINEER) [facility] CK 119 30 - 200 Units/L Blood 03/31/2024 6:04 AM NATURAL GAS ENGINEER 03/31/2024 6:21 AM NATURAL GAS ENGINEER Result [facility] Efrain Iglesias MD LAB BLOOD ORDERABLES Final Result Performing Organization Address [facility] de Phone Number [facility] [place] [address] * (ABNORMAL) Basic metabolic panel (03/31/2024 6:04 AM NATURAL GAS ENGINEER) [facility] Sodium 143 135 - 145 mmol/L Potassium, pl 4.1 3.3 - 4.9 mmol/L [facility] Chloride 109 97 - 110 mmol/L [facility] CO2 26 22 - 32 mmol/L [facility] Anion gap 8 2 - 15 mmol/L [facility] BUN 11 6 - 25 mg/dL [facility] Creatinine 0.91 0.60 - 1.10 mg/dL [facility] Glucose 93 70 - 199 mg/dL [facility] Comment: Interpretive Data Fasting glucose >/= 126 [...] 2022. Calcium 8.1(L) 8.5 - 10.3 mg/dL [facility] Blood 03/31/2024 6:04 AM NATURAL GAS ENGINEER 03/31/2024 6:21 AM NATURAL GAS ENGINEER us Vonda Whitney HOUSEKEEPER/LAUNDRY ASSISTANT LAB BLOOD ORDERABLES Final Result [facility] [place] [address] * eGFR (03/31/2024 5:21 AM NATURAL GAS ENGINEER) eGFR 74 >=60 mL/min/1. 73 m2 Comment: [...] last reviewed 2020. Blood 03/31/2024 5:21 AM NATURAL GAS ENGINEER 03/31/2024 5:41 AM NATURAL GAS ENGINEER us Vonda Whitney NP LAB BLOOD ORDERABLES Final Result [facility] [place] [address] * (ABNORMAL) Differential, auto (03/31/2024 5:21 AM NATURAL GAS ENGINEER) Pathologist [facility] Neutrophil abs 1.0(L) 1.5 - 6.5 K/cumm Imm gran abs 0.0 0.0 - 0.1 K/cumm [facility] Lymphocyte abs 0.9 0.8 - 3.3 K/cumm [facility] Monocyte abs 0.8 0.2 - 0.8 K/cumm [facility] Eosinophil abs 0.4 0.0 - 0.5 K/cumm [facility] Basophil abs 0.0 0.0 - 0.1 K/cumm [facility] Neutrophil pct 31.5 % [facility] Comment: Interpretive Data Percent cell count reference ranges are not reported, since discordance with absolute values may lead to misinterpretation of CBC data. Current Interpretive Data was last revised on 2017. Imm gran pct 0.6 % [facility] Comment: Interpretive Data Percent cell count reference ranges are not reported, since discordance with absolute values may lead to misinterpretation of CBC data. Current Interpretive Data was last revised on 2017. Lymphocyte pct 29.0 % [facility] Comment: Interpretive Data Percent cell count reference ranges are not reported, since discordance with absolute values may lead to misinterpretation of CBC data. Current Interpretive Data was last revised on 2017. Monocyte pct 23.7 % [facility] Comment: Interpretive Data Percent cell count reference ranges are not reported, since discordance with absolute values may lead to misinterpretation of CBC data. Current Interpretive Data was last revised on 2017. Eosinophil pct 13.9 % [facility] Comment: Interpretive Data Percent cell count reference ranges are not reported, since discordance with absolute values may lead to misinterpretation of CBC data. Current Interpretive Data was last revised on 2017. Basophil pct 1.3 % [facility] Comment: Interpretive Data Percent cell count reference ranges are not reported, since discordance with absolute values may lead to misinterpretation of CBC data. Current Interpretive Data was last revised on 2017. Blood 03/31/2024 5:21 AM NATURAL GAS ENGINEER 03/31/2024 5:41 AM NATURAL GAS ENGINEER Vonda Whitney NP LAB BLOOD ORDERABLES Final Result [facility] [place] [address] * (ABNORMAL) CBC with auto differential (03/31/2024 5:21 AM NATURAL GAS ENGINEER) WBC 3.2(L) 3.8 - 9.9 K/cumm Hgb 6.2(C) 11.9 - 15.5 g/dL [facility] Comment:Critical result call ed to and read back by YUKI WARE RN on 03 31 2024 at 0557 to [facility]. Hct 20.6(L) 35.6 - 45.5 % [facility] Plt 329 150 - 400 K/cumm [facility] MPV 9.6 9.1 - 12.3 fL [facility] RBC 2.41(L) 3.90 - 5.20 M/cumm [facility] MCV 85.5 81.3 - 96.4 fL [facility] MCH 25.7(L) 27.1 - 33.3 pg [facility] MCHC 30.1(L) 32.3 - 35.7 g/dL [facility] RDW CV 14.6 11.1 - 14.9 % [facility] RDW SD 45.3 35.7 - 48.1 fL [facility] NRBC abs 0.00 0.00 - 0.01 K/cumm [facility] Blood 03/31/2024 5:21 AM NATURAL GAS ENGINEER 03/31/2024 5:41 AM NATURAL GAS ENGINEER Vonda Whitney NP LAB BLOOD ORDERABLES Final Result [facility] [place] [address] * (ABNORMAL) Basic metabolic panel (03/31/2024 5:21 AM NATURAL GAS ENGINEER) [facility] Sodium 142 135 - 145 mmol/L Potassium, pl 4.3 3.3 - 4.9 mmol/L [facility] Chloride 109 97 - 110 mmol/L [facility] CO2 26 22 - 32 mmol/L [facility] Anion gap 7 2 - 15 mmol/L [facility] BUN 11 6 - 25 mg/dL [facility] Creatinine 0.92 0.60 - 1.10 mg/dL [facility] Glucose 90 70 - 199 mg/dL [facility] Comment: Interpretive Data Fasting glucose >/= 126 [...] 2022. Calcium 8.1(L) 8.5 - 10.3 mg/dL [facility] Blood 03/31/2024 5:21 AM NATURAL GAS ENGINEER 03/31/2024 5:41 AM NATURAL GAS ENGINEER us Vonda Whitney NP LAB BLOOD ORDERABLES Final Result Performing Organization Address [facility]/ZIP Co de Phone Number [facility] [place] [address] * XR Ankle Right 3 or More Views (03/30/2024 2:50 PM NATURAL GAS ENGINEER) Anatomical Region Laterality Modality Lower Extremities, Ankle Right Compute d Radiography 03/30/2024 3:20 PM NATURAL GAS ENGINEER Impressions 03/30/2024 3:20 PM NATURAL GAS ENGINEER 1. Moderate soft tissue swelling around the ankle without fracture. 2. Mild thickening of the right Achilles tendon may represent Achilles tendinopathy. Electronically signed by: Marcio Gillespie D.O. Narrative 03/30/2024 3:20 PM NATURAL GAS ENGINEER EXAMINATION: XR ANKLE RIGHT 3 OR MORE VIEWS HISTORY: pain COMPARISON: 01/28/2024 FINDINGS: No acute fracture or dislocation. The ankle mortise and talar dome are intact. Mild midfoot osteoarthritis. Mild thickening of the Achilles tendon. Moderate soft tissue swelling around the ankle. Procedure Note Marcio Gillespie, DO - 03/30/2024 EXAMINATION: XR ANKLE RIGHT [...] signed by: Marcio Gillespie D.O. Vonda Whitney NP IMG XR PROCEDURES Final Re sult * eGFR (03/30/2024 12:44 PM NATURAL GAS ENGINEER) eGFR 86 >=60 mL/min/1. 73 m2 Comment: [...] reviewed 2020. Blood 03/30/2024 12:4 4 PM NATURAL GAS ENGINEER 03/30/2024 1:00 PM NATURAL GAS ENGINEER Vonda Whitney NP LAB BLOOD ORDERABLES Final Result Performing Organization Address [facility] Co de Phone Number [facility] [place] [address] * (ABNORMAL) CRP (acute phase) (03/30/2024 12:44 PM NATURAL GAS ENGINEER) [facility] CRP 28.7(H) <=10.0 mg/L Blood 03/30/2024 12:4 4 PM NATURAL GAS ENGINEER 03/30/2024 12:55 PM NATURAL GAS ENGINEER Vonda Whitney NP LAB BLOOD ORDERABLES Final Result Performing Organization Address [facility] de Phone Number [facility] [place] [address] * Vancomycin level trough (03/30/2024 12:44 PM NATURAL GAS ENGINEER) [facility] Vancomycin trough 18.9 10.0 - 20.0 mcg/mL Blood 03/30/2024 12:4 4 PM NATURAL GAS ENGINEER 03/30/2024 12:55 PM NATURAL GAS ENGINEER Efrain Iglesias MD LAB BLOOD ORDERABLES Final Result Performing Organization Address [facility] de Phone Number [facility] [place] [address] * (ABNORMAL) Basic metabolic panel (03/30/2024 12:44 PM NATURAL GAS ENGINEER) [facility] Sodium 142 135 - 145 mmol/L Potassium, pl 4.1 3.3 - 4.9 mmol/L [facility] Chloride 107 97 - 110 mmol/L [facility] CO2 27 22 - 32 mmol/L [facility] Anion gap 8 2 - 15 mmol/L [facility] BUN 9 6 - 25 mg/dL [facility] Creatinine 0.81 0.60 - 1.10 mg/dL [facility] Glucose 138 70 - 199 mg/dL [facility] Comment: Interpretive Data Fasting glucose >/= 126 [...] 2022. Calcium 8.1(L) 8.5 - 10.3 mg/dL [facility] Blood 03/30/2024 12:4 4 PM NATURAL GAS ENGINEER 03/30/2024 12:55 PM NATURAL GAS ENGINEER us Vonda Whitney HOUSEKEEPER/LAUNDRY ASSISTANT LAB BLOOD ORDERABLES Final Result [facility] [place] [address] * eGFR (03/29/2024 5:33 AM NATURAL GAS ENGINEER) eGFR >90 >=60 mL/min/1. 73 m2 Comment: [...] last reviewed 2020. Blood 03/29/2024 5:33 AM NATURAL GAS ENGINEER 03/29/2024 5:51 AM NATURAL GAS ENGINEER Nikkie Anderson MD LAB BLOOD ORDERABLES F inal Result [facility] [place] [address] * (ABNORMAL) CBC without differential (03/29/2024 5:33 AM NATURAL GAS ENGINEER) [facility] WBC 5.1 3.8 - 9.9 K/cumm Hgb 7.6(L) 11.9 - 15.5 g/dL [facility] Hct 24.6(L) 35.6 - 45.5 % [facility] Plt 341 150 - 400 K/cumm [facility] MPV 9.5 9.1 - 12.3 fL [facility] RBC 2.93(L) 3.90 - 5.20 M/cumm [facility] MCV 84.0 81.3 - 96.4 fL [facility] MCH 25.9(L) 27.1 - 33.3 pg [facility] MCHC 30.9(L) 32.3 - 35.7 g/dL [facility] RDW CV 14.1 11.1 - 14.9 % [facility] RDW SD 43.8 35.7 - 48.1 fL [facility] NRBC abs 0.00 0.00 - 0.01 K/cumm [facility] Blood 03/29/2024 5:33 AM NATURAL GAS ENGINEER 03/29/2024 5:51 AM NATURAL GAS ENGINEER Nikkie Anderson MD LAB BLOOD ORDERABLES F inal Result Performing Organization Address City/[facility]/ZIP Co de Phone Number [facility] [place] [address] * (ABNORMAL) Basic metabolic panel (03/29/2024 5:33 AM NATURAL GAS ENGINEER) Sodium 141 135 - 145 mmol/L Potassium, pl 4.7 3.3 - 4.9 mmol/L [facility] Chloride 108 97 - 110 mmol/L [facility] CO2 25 22 - 32 mmol/L [facility] Anion gap 8 2 - 15 mmol/L [facility] BUN 10 6 - 25 mg/dL [facility] Creatinine 0.72 0.60 - 1.10 mg/dL [facility] Glucose 149 70 - 199 mg/dL [facility] Comment: Interpretive Data Fasting glucose >/= 126 [...] 2022. Calcium 8.2(L) 8.5 - 10.3 mg/dL [facility] Blood 03/29/2024 5:33 AM NATURAL GAS ENGINEER 03/29/2024 5:51 AM NATURAL GAS ENGINEER us Nikkie Anderson MD LAB BLOOD ORDERABLES F inal Result [facility] [place] [address] * XR Knee Right 1 or 2 View (03/28/2024 4:21 PM NATURAL GAS ENGINEER) Anatomical Region Laterality Modality Lower Extremities, Knee Right Computed Radiography 03/28/2024 4:42 PM NATURAL GAS ENGINEER Impressions 03/28/2024 4:42 PM NATURAL GAS ENGINEER Interval revision 2 component right knee arthroplasty in near anatomic position. Electronically signed by: Faraz Maier MD Narrative 03/28/2024 4:42 PM NATURAL GAS ENGINEER EXAMINATION: XR KNEE RIGHT 1 OR 2 [...] position. Electronically signed by: Faraz Maier MD Trey Sanchez MD IMG XR PROCEDURES Final R esult * Tissue aerobic and anaerobic culture and gram stain Tissue Knee, right (03/28/2024 12:54 PM NATURAL GAS ENGINEER) Direct Specimen Exam Stain: No polymorphonuclear leukocytes seen. No organisms seen. Report Final Report: No growth [facility] Tissue (Knee, right) 03/28/2024 12:54 PM NATURAL GAS ENGINEER 03/28/2024 2:11 PM NATURAL GAS ENGINEER Narrative [facility] - 04/02/2024 1:11 PM NATURAL GAS ENGINEER DEEP TISSUE #2 Testing performed by [facility] ([phone]) Specimens submitted from normally sterile body sites [...] ENERAL ORDERABLES Final Result Performing Organization Address [facility] Co de Phone Number [facility] [place] [address] * Mycology (fungal) culture and stain Tissue Knee, right (03/28/2024 12:54 PM NATURAL GAS ENGINEER) Direct Specimen Exam Stain: No Fungal elements seen. Report Final Report: No growth of fungus [facility] Tissue (Knee, right) 03/28/2024 12:54 PM NATURAL GAS ENGINEER 03/28/2024 2:11 PM NATURAL GAS ENGINEER Narrative [facility] - 04/25/2024 7:57 AM CDT DEEP TISSUE #2 Testing performed by [facility] ([phone]). Efrain Iglesias MD LAB MICROBIOLOGY - G ENERAL ORDERABLES Final Result Performing Organization Address [facility] Co de Phone Number [facility] Department [place] [address] * Tissue aerobic and anaerobic culture and gram stain Tissue Knee, right (03/28/2024 12:49 PM NATURAL GAS ENGINEER) Direct Specimen Exam Stain: No polymorphonuclear leukocytes seen. No organisms seen. Report Final Report: No growth [facility] Tissue (Knee, right) 03/28/2024 12:49 PM NATURAL GAS ENGINEER 03/28/2024 2:10 PM NATURAL GAS ENGINEER Narrative [facility] - 04/02/2024 1:12 PM NATURAL GAS ENGINEER Deep tissue Testing performed by [facility] ([phone]) Specimens submitted from normally sterile body sites [...] ENERAL ORDERABLES Final Result Performing Organization Address City/[facility] Co de Phone Number [facility] [employer] [place] [address] * Mycology (fungal) culture Tissue Knee, right (03/28/2024 12:49 PM NATURAL GAS ENGINEER) Report Final Report: No growth of fungus Tissue (Knee, right) 03/28/2024 12:49 PM NATURAL GAS ENGINEER 03/28/2024 2:10 PM NATURAL GAS ENGINEER Narrative [facility] - 04/25/2024 7:57 AM CDT Deep tissue Testing performed by [facility] ([phone]). us Efrain Iglesias MD LAB MICROBIOLOGY - G ENERAL ORDERABLES Final Result Performing Organization Address [facility] Co de Phone Number [facility] [place] [address] * Mycology (fungal) culture Synovial fluid Knee, right (03/28/2024 12:48 PM NATURAL GAS ENGINEER) Report Final Report: No growth of fungus Synovial fluid (Knee, right) 03/28/2024 12:48 PM NATURAL GAS ENGINEER 03/28/2024 2:11 PM NATURAL GAS ENGINEER Narrative [facility] - 04/25/2024 7:57 AM CDT Right knee fluid Testing performed by [facility] ([phone]). Efrain Iglesias MD LAB MICROBIOLOGY - G ENERAL ORDERABLES Final Result Performing Organization Address City/[facility] Co de Phone Number [facility] [place] [address] * Aerobic and anaerobic culture and gram stain Synovial fluid Knee, right (03/28/2024 12:48 PM NATURAL GAS ENGINEER) Direct Specimen Exam Stain: Cytospin Gram stain shows: Few polymorphonuclear leukocytes seen. Red blood cells present. Other cellular material present. No organisms seen. Report Final Report: No growth [facility] Synovial fluid (Knee, right) 03/28/2024 12:48 PM NATURAL GAS ENGINEER 03/28/2024 2:11 PM NATURAL GAS ENGINEER Narrative [facility] - 04/02/2024 1:10 PM NATURAL GAS ENGINEER Right knee fluid Testing performed by [facility] ([phone]) Specimens submitted from normally sterile body sites [...] ENERAL ORDERABLES Final Result Performing Organization Address City/[facility]/ZIP Co de Phone Number [facility] Department [place] [address] * Crystal Analysis, Body Fluid (03/28/2024 11:43 AM NATURAL GAS ENGINEER) Pathologist [facility] Specimen type, fld Synovial Crystals None Seen None Seen [facility] Fluid 03/28/2024 11:4 3 AM NATURAL GAS ENGINEER 03/28/2024 3:53 PM NATURAL GAS ENGINEER Efrain Iglesias MD LAB BODY FLUIDS AND STOOLS ORDERABLES Final Result Performing Organization Address [facility] Co de Phone Number [facility] Department [place] [address] * Cell Differential, Body Fluid (03/28/2024 11:43 AM NATURAL GAS ENGINEER) Pathologist [facility] Total cells diffed 100 cells Comment: Interpretive Data Unless otherwise specified, the reference range and other method performance specifications have not been established for CSF/Body Fluid tests. The test results should be integrated into the clinical context for interpretation. Current interpretive data was last revised on 2018. Neutrophils, fld 55 % [facility] Lymphs, fld 35 % [facility] Monocyte, fld 8 % [facility] Eosinophils, fld 2 % [facility] Fluid 03/28/2024 11:4 3 AM NATURAL GAS ENGINEER 03/28/2024 3:53 PM NATURAL GAS ENGINEER Efrain Iglesias MD LAB BODY FLUIDS AND STOOLS ORDERABLES Final Result Performing Organization Address [facility] Co de Phone Number [facility] Department [place] [address] * (ABNORMAL) Cell count w/rflx diff, body fluid (03/28/2024 11:43 AM NATURAL GAS ENGINEER) Specimen type, fld Synovial Color, fld Red [facility] Clarity, fld Turbid(A) Clear [facility] Nucleated cells, fld 1,140 /cumm [facility] Comment: Interpretive Data Unless otherwise specified, the reference range and other method performance specifications have not been established for CSF/Body Fluid tests. The test results should be integrated into the clinical context for interpretation. Current interpretive data was last revised on 2018. RBC, fld >800,000 /cumm [facility] Fluid 03/28/2024 11:4 3 AM NATURAL GAS ENGINEER 03/28/2024 3:53 PM NATURAL GAS ENGINEER Narrative [facility] - 03/29/2024 12:54 AM NATURAL GAS ENGINEER Specify:->R ankle us Efrain Iglesias MD LAB BODY FLUIDS AND STOOLS ORDERABLES Final Result Performing Organization Address [facility] Co de Phone Number [facility] [place] [address] * Mycology (fungal) culture Synovial fluid Ankle, right (03/28/2024 11:43 AM NATURAL GAS ENGINEER) Report Final Report: No growth of fungus Synovial fluid (Ankle, right) 03/28/2024 11:43 AM NATURAL GAS ENGINEER 03/28/2024 2:47 PM NATURAL GAS ENGINEER Narrative [facility] - 04/25/2024 7:59 AM CDT Testing performed by [facility] ([phone]). Efrain Iglesias MD LAB MICROBIOLOGY - G ENERAL ORDERABLES Final Result Performing Organization Address [facility] Co de Phone Number [facility] Department [place] [address] * Aerobic and anaerobic culture and gram stain Synovial fluid Ankle, right (03/28/2024 11:43 AM NATURAL GAS ENGINEER) Direct Specimen Exam Stain: Cytospin Gram stain shows: Rare polymorphonuclear leukocytes seen. Other cellular material present. No organisms seen. Report Final Report: No growth [facility] Synovial fluid (Ankle, right) 03/28/2024 11:43 AM NATURAL GAS ENGINEER 03/28/2024 2:47 PM NATURAL GAS ENGINEER Narrative [facility] - 04/03/2024 12:03 PM NATURAL GAS ENGINEER Testing performed by [facility] ([phone]) Specimens submitted from normally sterile body sites [...] ENERAL ORDERABLES Final Result Performing Organization Address City/[facility] Co de Phone Number [facility] Department [place] [address] * GA AN PROCEDURE PLACEHOLDER (03/28/2024 11:24 AM NATURAL GAS ENGINEER) Narrative Cecilio Salmeron RN - 03/28/2024 11:24 AM NATURAL GAS ENGINEER Cecilio Salmeron RN 03/28/2024 11:25 AM Peripheral [...] Olguin MD ANESTHESIA ORDERABLES Final Result * GA AN ELECTIVE ENDOTRACHEAL AIRWAY, GA AN PROCEDURE PLACEHOLDER (03/28/2024 11:22 AM NATURAL GAS ENGINEER) Narrative Cecilio Salmeron RN - 03/28/2024 11:22 AM NATURAL GAS ENGINEER Cecilio Salmeron RN 03/28/2024 11:24 AM Airway [...] AND SCREEN 14 DAY (03/23/2024 9:29 AM NATURAL GAS ENGINEER) ABO Rh A Positive Neftaly, indirect Negative [facility] Blood 03/23/2024 9:29 AM NATURAL GAS ENGINEER 03/23/2024 9:45 AM NATURAL GAS ENGINEER Narrative [facility] - 03/23/2024 10:49 AM NATURAL GAS ENGINEER Has the patient had Daratumumab or Isatuximab in the past 6 months?->Unknown Is this test being ordered in advance for a procedure?->Yes Expected date of procedure:->03/28/24 Has the patient been transfused in the past 3 months?->No Has the patient been in the past 3 months?->No Sydnee Menjivar NP LAB BLOOD BANK TEST ORDERABLE S Final Result [facility] Department [place] [address] * Vitamin D 25 hydroxy (03/23/2024 9:29 AM NATURAL GAS ENGINEER) Vitamin D 25-OH 35 30 - 80 ng/mL Blood 03/23/2024 9:29 AM NATURAL GAS ENGINEER 03/23/2024 9:43 AM NATURAL GAS ENGINEER Efrain Iglesias MD LAB BLOOD ORDERABLES Final Result Performing Organization Address City/[facility]/ZIP Co de Phone Number [facility] Department [place] [address] * eGFR (03/21/2024 9:53 AM NATURAL GAS ENGINEER) eGFR >90 >=60 mL/min/1. 73 m2 Comment: [...] Inclusion of Race in Diagnosing Kidney Disease, HUMBERTOSCachorro 2020). The CKD-EPI equation should not be used for patients with unstable renal function and has not been validated in children and those over 70. Current interpretive data was last reviewed 2020. Blood 03/21/2024 9:53 AM NATURAL GAS ENGINEER 03/21/2024 1:28 PM NATURAL GAS ENGINEER us Efrain Iglesias MD LAB BLOOD ORDERABLES Final Result [facility] Department [place] [address] * Differential, auto (03/21/2024 9:53 AM NATURAL GAS ENGINEER) Neutrophil abs 2.7 1.5 - 6.5 K/cumm Imm gran abs 0.0 0.0 - 0.1 K/cumm [facility] Lymphocyte abs 1.5 0.8 - 3.3 K/cumm [facility] Monocyte abs 0.7 0.2 - 0.8 K/cumm [facility] Eosinophil abs 0.3 0.0 - 0.5 K/cumm [facility] Basophil abs 0.1 0.0 - 0.1 K/cumm [facility] Neutrophil pct 52.0 % [facility] Comment: Interpretive Data Percent cell count reference ranges are not reported, since discordance with absolute values may lead to misinterpretation of CBC data. Current Interpretive Data was last revised on 2017. Imm gran pct 0.2 % [facility] Comment: Interpretive Data Percent cell count reference ranges are not reported, since discordance with absolute values may lead to misinterpretation of CBC data. Current Interpretive Data was last revised on 2017. Lymphocyte pct 28.2 % [facility] Comment: Interpretive Data Percent cell count reference ranges are not reported, since discordance with absolute values may lead to misinterpretation of CBC data. Current Interpretive Data was last revised on 2017. Monocyte pct 12.4 % [facility] Comment: Interpretive Data Percent cell count reference ranges are not reported, since discordance with absolute values may lead to misinterpretation of CBC data. Current Interpretive Data was last revised on 2017. Eosinophil pct 5.9 % [facility] Comment: Interpretive Data Percent cell count reference ranges are not reported, since discordance with absolute values may lead to misinterpretation of CBC data. Current Interpretive Data was last revised on 2017. Basophil pct 1.3 % [facility] Comment: Interpretive Data Percent cell count reference ranges are not reported, since discordance with absolute values may lead to misinterpretation of CBC data. Current Interpretive Data was last revised on 2017. Blood 03/21/2024 9:53 AM NATURAL GAS ENGINEER 03/21/2024 1:04 PM NATURAL GAS ENGINEER us Efrain Iglesias MD LAB BLOOD ORDERABLES Final Result [facility] Department [place] [address] * (ABNORMAL) CBC with auto differential (03/21/2024 9:53 AM NATURAL GAS ENGINEER) WBC 5.3 3.8 - 9.9 K/cumm Hgb 10.5(L) 11.9 - 15.5 g/dL [facility] Hct 34.4(L) 35.6 - 45.5 % [facility] Plt 435(H) 150 - 400 K/cumm [facility] MPV 10.1 9.1 - 12.3 fL [facility] RBC 3.97 3.90 - 5.20 M/cumm [facility] MCV 86.6 81.3 - 96.4 fL [facility] MCH 26.4(L) 27.1 - 33.3 pg [facility] MCHC 30.5(L) 32.3 - 35.7 g/dL [facility] RDW CV 14.2 11.1 - 14.9 % [facility] RDW SD 45.6 35.7 - 48.1 fL [facility] NRBC abs 0.00 0.00 - 0.01 K/cumm [facility] Blood 03/21/2024 9:53 AM NATURAL GAS ENGINEER 03/21/2024 1:04 PM NATURAL GAS ENGINEER Efrain Iglesias MD LAB BLOOD ORDERABLES Final Result Performing Organization Address City/[facility] Co de Phone Number [facility] Department [place] [address] * Creatine kinase (CK), total (03/21/2024 9:53 AM NATURAL GAS ENGINEER) Pathologist [facility] CK 66 30 - 200 Units/L Blood 03/21/2024 9:53 AM NATURAL GAS ENGINEER 03/21/2024 1:03 PM NATURAL GAS ENGINEER Efrain Iglesias MD LAB BLOOD ORDERABLES Final Result Performing Organization Address [facility] de Phone Number [facility] [place] [address] * Comprehensive metabolic panel (03/21/2024 9:53 AM NATURAL GAS ENGINEER) [facility] Sodium 144 135 - 145 mmol/L Potassium, pl 4.5 3.3 - 4.9 mmol/L [facility] Chloride 104 97 - 110 mmol/L [facility] CO2 29 22 - 32 mmol/L [facility] Anion gap 11 2 - 15 mmol/L [facility] BUN 14 6 - 25 mg/dL [facility] Creatinine 0.73 0.60 - 1.10 mg/dL [facility] Glucose 109 70 - 199 mg/dL [facility] Comment: Interpretive Data Fasting glucose >/= 126 [...] 2022. Calcium 9.9 8.5 - 10.3 mg/dL [facility] Bilirubin, total 0.2 0.1 - 1.2 mg/dL [facility] Protein, pl 7.4 6.5 - 8.5 g/dL [facility] Albumin 4.4 3.5 - 5.0 g/dL [facility] Alk phos 81 40 - 130 Units/L [facility] ALT 21 7 - 45 Units/L [facility] AST 20 10 - 45 Units/L [facility] Blood 03/21/2024 9:53 AM NATURAL GAS ENGINEER 03/21/2024 1:03 PM NATURAL GAS ENGINEER us Efrain Iglesias MD LAB BLOOD ORDERABLES Final Result [facility] [place] [address] * Creatine kinase (CK), total (03/17/2024 9:43 AM NATURAL GAS ENGINEER) Pathologist [facility] CK 49 30 - 200 Units/L Blood 03/17/2024 9:43 AM NATURAL GAS ENGINEER 03/17/2024 2:10 PM NATURAL GAS ENGINEER us Jeff Larkin MD PhD LAB BLOOD ORDERABLES Final Result [facility] [place] [address] * eGFR (03/14/2024 9:41 AM NATURAL GAS ENGINEER) Pathologist [facility] eGFR >90 >=60 mL/min/1. 73 m2 Comment: [...] last reviewed 2020. Blood 03/14/2024 9:41 AM NATURAL GAS ENGINEER 03/14/2024 2:27 PM NATURAL GAS ENGINEER us Jeff Larkin MD PhD LAB BLOOD ORDERABLES Final Result [facility] [place] [address] * Differential, auto (03/14/2024 9:41 AM NATURAL GAS ENGINEER) Neutrophil abs 3.8 1.5 - 6.5 K/cumm Imm gran abs 0.0 0.0 - 0.1 K/cumm [facility] Lymphocyte abs 1.5 0.8 - 3.3 K/cumm [facility] Monocyte abs 0.6 0.2 - 0.8 K/cumm [facility] Eosinophil abs 0.5 0.0 - 0.5 K/cumm [facility] Basophil abs 0.1 0.0 - 0.1 K/cumm [facility] Neutrophil pct 58.5 % [facility] Comment: Interpretive Data Percent cell count reference ranges are not reported, since discordance with absolute values may lead to misinterpretation of CBC data. Current Interpretive Data was last revised on 2017. Imm gran pct 0.5 % [facility] Comment: Interpretive Data Percent cell count reference ranges are not reported, since discordance with absolute values may lead to misinterpretation of CBC data. Current Interpretive Data was last revised on 2017. Lymphocyte pct 23.1 % [facility] Comment: Interpretive Data Percent cell count reference ranges are not reported, since discordance with absolute values may lead to misinterpretation of CBC data. Current Interpretive Data was last revised on 2017. Monocyte pct 9.7 % [facility] Comment: Interpretive Data Percent cell count reference ranges are not reported, since discordance with absolute values may lead to misinterpretation of CBC data. Current Interpretive Data was last revised on 2017. Eosinophil pct 6.8 % [facility] Comment: Interpretive Data Percent cell count reference ranges are not reported, since discordance with absolute values may lead to misinterpretation of CBC data. Current Interpretive Data was last revised on 2017. Basophil pct 1.4 % [facility] Comment: Interpretive Data Percent cell count reference ranges are not reported, since discordance with absolute values may lead to misinterpretation of CBC data. Current Interpretive Data was last revised on 2017. Blood 03/14/2024 9:41 AM NATURAL GAS ENGINEER 03/14/2024 2:10 PM NATURAL GAS ENGINEER us Jeff Larkin MD PhD LAB BLOOD ORDERABLES Final Result [facility] [place] [address] * (ABNORMAL) CBC with auto differential (03/14/2024 9:41 AM NATURAL GAS ENGINEER) WBC 6.6 3.8 - 9.9 K/cumm Hgb 10.4(L) 11.9 - 15.5 g/dL [facility] Hct 34.7(L) 35.6 - 45.5 % [facility] Plt 451(H) 150 - 400 K/cumm [facility] MPV 10.3 9.1 - 12.3 fL [facility] RBC 3.94 3.90 - 5.20 M/cumm [facility] MCV 88.1 81.3 - 96.4 fL [facility] MCH 26.4(L) 27.1 - 33.3 pg [facility] MCHC 30.0(L) 32.3 - 35.7 g/dL [facility] RDW CV 14.2 11.1 - 14.9 % [facility] RDW SD 46.3 35.7 - 48.1 fL [facility] NRBC abs 0.00 0.00 - 0.01 K/cumm [facility] Blood 03/14/2024 9:41 AM NATURAL GAS ENGINEER 03/14/2024 2:10 PM NATURAL GAS ENGINEER Result Pam Larkin MD PhD LAB BLOOD ORDERABLES Final Result Performing Organization Address City/[facility] Co de Phone Number [facility] [place] [address] * Erythrocyte sedimentation rate (03/14/2024 9:41 AM NATURAL GAS ENGINEER) Erythrocyte sedimentation rate 24 1 - 30 mm/hr Blood 03/14/2024 9:41 AM NATURAL GAS ENGINEER 03/14/2024 2:10 PM NATURAL GAS ENGINEER Result Pam Larkin MD PhD LAB BLOOD ORDERABLES Final Result Performing Organization Address [facility] Co de Phone Number [facility] [place] [address] * CRP (acute phase) (03/14/2024 9:41 AM NATURAL GAS ENGINEER) CRP 1.5 <=10.0 mg/L Blood 03/14/2024 9:41 AM NATURAL GAS ENGINEER 03/14/2024 2:10 PM NATURAL GAS ENGINEER Result Pam Larkin MD PhD LAB BLOOD ORDERABLES Final Result Performing Organization Address City/[facility]/[place] [address] * Creatine kinase (CK), total (03/14/2024 9:41 AM NATURAL GAS ENGINEER) CK 60 30 - 200 Units/L Blood 03/14/2024 9:41 AM NATURAL GAS ENGINEER 03/14/2024 2:10 PM NATURAL GAS ENGINEER Result Pam Larkin MD PhD LAB BLOOD ORDERABLES Final Result [facility] [place] [address] * Comprehensive metabolic panel (03/14/2024 9:41 AM NATURAL GAS ENGINEER) Sodium 140 135 - 145 mmol/L Potassium, pl 4.3 3.3 - 4.9 mmol/L [facility] Chloride 102 97 - 110 mmol/L [facility] CO2 28 22 - 32 mmol/L [facility] Anion gap 10 2 - 15 mmol/L [facility] BUN 14 6 - 25 mg/dL [facility] Creatinine 0.75 0.60 - 1.10 mg/dL [facility] Glucose 88 70 - 199 mg/dL [facility] Comment: Interpretive Data Fasting glucose >/= 126 [...] 2022. Calcium 9.7 8.5 - 10.3 mg/dL [facility] Bilirubin, total 0.2 0.1 - 1.2 mg/dL [facility] Protein, pl 7.4 6.5 - 8.5 g/dL [facility] Albumin 4.5 3.5 - 5.0 g/dL [facility] Alk phos 84 40 - 130 Units/L [facility] ALT 22 7 - 45 Units/L [facility] AST 22 10 - 45 Units/L [facility] Blood 03/14/2024 9:41 AM NATURAL GAS ENGINEER 03/14/2024 2:10 PM NATURAL GAS ENGINEER us Jeff Larkin MD PhD LAB BLOOD ORDERABLES Final Result Performing Organization Address City/[facility]/ZIP Co de Phone Number [facility] [place] [address] * Creatine kinase (CK), total (03/10/2024 9:48 AM NATURAL GAS ENGINEER) CK 57 30 - 200 Units/L Blood 03/10/2024 9:48 AM NATURAL GAS ENGINEER 03/10/2024 3:38 PM NATURAL GAS ENGINEER Notinfile Unknown LAB BLOOD ORDERABLES Final Res ult Performing Organization Address City/[facility]/ZIP Co de Phone Number [facility] [place] [address] * (ABNORMAL) Iron profile w/ IBC (03/09/2024 3:41 PM NATURAL GAS ENGINEER) Pathologist [facility] Iron 32(L) 35 - 145 mcg/dL TIBC 231(L) 250 - 400 mcg/dL [facility] Transferrin saturation 14(L) 20 - 50 % [facility] Blood 03/09/2024 3:41 PM NATURAL GAS ENGINEER 03/09/2024 4:00 PM NATURAL GAS ENGINEER Pam Negrete HOUSEKEEPER/LAUNDRY ASSISTANT LAB BLOOD ORDERABLE S Final Result Performing Organization Address [facility] de Phone Number [facility] [place] [address] * Urinalysis reflex to microscopic and culture Urine (03/09/2024 3:41 PM NATURAL GAS ENGINEER) Color, ur Straw Yellow Clarity, ur Clear Clear [facility] Specific gravity, ur 1.015 1.003 - 1.030 [facility] pH, urine 6.0 [facility] Comment: Interpretive Data U rine pH is affected by diet, medications, systemic acid-base disturbances, and renal tubular function. pH may affect urinary stone formation. For example, urine pH below 6.0 may help reduce the tendency for calcium phosphate stones and pH greater than 6.0 may reduce the tendency for uric acid stone formation. Source: [facility] [employer] Current Interpretive Data was last revised on 2017 Protein, ur ql Trace Negative [facility] Glucose, ur ql Negative Negative [facility] Ketones, ur Negative Negative [facility] Bilirubin, ur Negative Negative [facility] Blood, ur Negative Negative [facility] Urobilinogen, ur <2.0 <2.0 mg/dL [facility] Nitrite, ur Negative Negative [facility] Leukocyte esterase, ur Negative Negative [facility] UA reflex comment Reflex conditions for microscopic UA and culture not met. [facility] [facility] Urine 03/09/2024 3:41 PM NATURAL GAS ENGINEER 03/09/2024 4:00 PM NATURAL GAS ENGINEER us Pam Negrete NP LAB MICROBIOLOGY - GENERAL ORDERABLES Final Result [facility] Department [place] [address] * eGFR (03/07/2024 10:36 AM NATURAL GAS ENGINEER) eGFR >90 >=60 mL/min/1. 73 m2 Comment: [...] of Race in Diagnosing Kidney Disease, JASN 202). The CKD-EPI equation should not be used for patients with unstable renal function and has not been validated in children and those over 70. Current interpretive data was last reviewed 2020. Blood 03/07/2024 10:3 6 AM NATURAL GAS ENGINEER 03/07/2024 2:06 PM NATURAL GAS ENGINEER us Notinfile Unknown LAB BLOOD ORDERABLES Final Res ult [facility] Department [place] [address] * (ABNORMAL) Differential, auto (03/07/2024 10:36 AM NATURAL GAS ENGINEER) Neutrophil abs 4.3 1.5 - 6.5 K/cumm Imm gran abs 0.0 0.0 - 0.1 K/cumm [facility] Lymphocyte abs 1.5 0.8 - 3.3 K/cumm [facility] Monocyte abs 1.1(H) 0.2 - 0.8 K/cumm [facility] Eosinophil abs 0.6(H) 0.0 - 0.5 K/cumm [facility] Basophil abs 0.1 0.0 - 0.1 K/cumm [facility] Neutrophil pct 56.5 % [facility] Comment: Interpretive Data Percent cell count reference ranges are not reported, since discordance with absolute values may lead to misinterpretation of CBC data. Current Interpretive Data was last revised on 2017. Imm gran pct 0.5 % [facility] Comment: Interpretive Data Percent cell count reference ranges are not reported, since discordance with absolute values may lead to misinterpretation of CBC data. Current Interpretive Data was last revised on 2017. Lymphocyte pct 19.5 % [facility] Comment: Interpretive Data Percent cell count reference ranges are not reported, since discordance with absolute values may lead to misinterpretation of CBC data. Current Interpretive Data was last revised on 2017. Monocyte pct 13.7 % [facility] Comment: Interpretive Data Percent cell count reference ranges are not reported, since discordance with absolute values may lead to misinterpretation of CBC data. Current Interpretive Data was last revised on 2017. Eosinophil pct 8.2 % [facility] Comment: Interpretive Data Percent cell count reference ranges are not reported, since discordance with absolute values may lead to misinterpretation of CBC data. Current Interpretive Data was last revised on 2017. Basophil pct 1.6 % [facility] Comment: Interpretive Data Percent cell count reference ranges are not reported, since discordance with absolute values may lead to misinterpretation of CBC data. Current Interpretive Data was last revised on 2017. Blood 03/07/2024 10:3 6 AM NATURAL GAS ENGINEER 03/07/2024 1:51 PM NATURAL GAS ENGINEER us Notinfile Unknown LAB BLOOD ORDERABLES Final Res ult Performing Organization Address City/[facility]/ZIP Co de Phone Number [facility] Department [place] [address] * (ABNORMAL) CBC with auto differential (03/07/2024 10:36 AM NATURAL GAS ENGINEER) WBC 7.7 3.8 - 9.9 K/cumm Hgb 10.2(L) 11.9 - 15.5 g/dL [facility] Hct 33.7(L) 35.6 - 45.5 % [facility] Plt 419(H) 150 - 400 K/cumm [facility] MPV 10.2 9.1 - 12.3 fL [facility] RBC 3.80(L) 3.90 - 5.20 M/cumm [facility] MCV 88.7 81.3 - 96.4 fL [facility] MCH 26.8(L) 27.1 - 33.3 pg [facility] MCHC 30.3(L) 32.3 - 35.7 g/dL [facility] RDW CV 14.0 11.1 - 14.9 % [facility] RDW SD 45.4 35.7 - 48.1 fL [facility] NRBC abs 0.00 0.00 - 0.01 K/cumm [facility] Blood 03/07/2024 10:3 6 AM NATURAL GAS ENGINEER 03/07/2024 1:51 PM NATURAL GAS ENGINEER us Notinfile Unknown LAB BLOOD ORDERABLES Final Res ult Performing Organization Address City/[facility]/ZIP Co de Phone Number [facility] [place] [address] * Creatine kinase (CK), total (03/07/2024 10:36 AM NATURAL GAS ENGINEER) CK 64 30 - 200 Units/L Blood 03/07/2024 10:3 6 AM NATURAL GAS ENGINEER 03/07/2024 1:50 PM NATURAL GAS ENGINEER us Notinfile Unknown LAB BLOOD ORDERABLES Final Res ult [facility] Department [place] [address] * Comprehensive metabolic panel (03/07/2024 10:36 AM NATURAL GAS ENGINEER) Sodium 141 135 - 145 mmol/L Potassium, pl 4.5 3.3 - 4.9 mmol/L [facility] Chloride 103 97 - 110 mmol/L [facility] CO2 28 22 - 32 mmol/L [facility] Anion gap 10 2 - 15 mmol/L [facility] BUN 23 6 - 25 mg/dL [facility] Creatinine 0.76 0.60 - 1.10 mg/dL [facility] Glucose 111 70 - 199 mg/dL [facility] Comment: Interpretive Data Fasting glucose >/= 126 [...] 2022. Calcium 9.5 8.5 - 10.3 mg/dL [facility] Bilirubin, total 0.2 0.1 - 1.2 mg/dL [facility] Protein, pl 7.2 6.5 - 8.5 g/dL [facility] Albumin 4.5 3.5 - 5.0 g/dL [facility] Alk phos 86 40 - 130 Units/L [facility] ALT 21 7 - 45 Units/L [facility] AST 22 10 - 45 Units/L [facility] Blood 03/07/2024 10:3 6 AM NATURAL GAS ENGINEER 03/07/2024 1:50 PM NATURAL GAS ENGINEER us Notinfile Unknown LAB BLOOD ORDERABLES Final Res ult Performing Organization Address City/[facility]/ZIP Co de Phone Number [facility] [place] [address] * Creatine kinase (CK), total (03/03/2024 10:22 AM NATURAL GAS ENGINEER) CK 56 30 - 200 Units/L Blood 03/03/2024 10:2 2 AM NATURAL GAS ENGINEER 03/03/2024 2:51 PM NATURAL GAS ENGINEER Jeff Larkin MD PhD LAB BLOOD ORDERABLES Final Result Performing Organization Address [facility] de Phone Number [facility] Department [place] [address] * eGFR (02/29/2024 10:08 AM NATURAL GAS ENGINEER) eGFR >90 >=60 mL/min/1. 73 m2 Comment: [...] reviewed 2020. Blood 02/29/2024 10:0 8 AM NATURAL GAS ENGINEER 02/29/2024 1:09 PM NATURAL GAS ENGINEER us Jeff Larkin MD PhD LAB BLOOD ORDERABLES Final Result [facility] Department [place] [address] * (ABNORMAL) Differential, auto (02/29/2024 10:08 AM NATURAL GAS ENGINEER) Neutrophil abs 3.8 1.5 - 6.5 K/cumm Imm gran abs 0.0 0.0 - 0.1 K/cumm [facility] Lymphocyte abs 1.7 0.8 - 3.3 K/cumm [facility] Monocyte abs 0.7 0.2 - 0.8 K/cumm [facility] Eosinophil abs 1.2(H) 0.0 - 0.5 K/cumm [facility] Basophil abs 0.1 0.0 - 0.1 K/cumm [facility] Neutrophil pct 51.0 % [facility] Comment: Interpretive Data Percent cell count reference ranges are not reported, since discordance with absolute values may lead to misinterpretation of CBC data. Current Interpretive Data was last revised on 2017. Imm gran pct 0.4 % [facility] Comment: Interpretive Data Percent cell count reference ranges are not reported, since discordance with absolute values may lead to misinterpretation of CBC data. Current Interpretive Data was last revised on 2017. Lymphocyte pct 22.4 % [facility] Comment: Interpretive Data Percent cell count reference ranges are not reported, since discordance with absolute values may lead to misinterpretation of CBC data. Current Interpretive Data was last revised on 2017. Monocyte pct 8.9 % [facility] Comment: Interpretive Data Percent cell count reference ranges are not reported, since discordance with absolute values may lead to misinterpretation of CBC data. Current Interpretive Data was last revised on 2017. Eosinophil pct 15.5 % [facility] Comment: Interpretive Data Percent cell count reference ranges are not reported, since discordance with absolute values may lead to misinterpretation of CBC data. Current Interpretive Data was last revised on 2017. Basophil pct 1.8 % [facility] Comment: Interpretive Data Percent cell count reference ranges are not reported, since discordance with absolute values may lead to misinterpretation of CBC data. Current Interpretive Data was last revised on 2017. Blood 02/29/2024 10:0 8 AM NATURAL GAS ENGINEER 02/29/2024 1:01 PM NATURAL GAS ENGINEER Jeff Larkin MD PhD LAB BLOOD ORDERABLES Final Result [facility] Department [place] [address] * (ABNORMAL) CBC with auto differential (02/29/2024 10:08 AM NATURAL GAS ENGINEER) WBC 7.4 3.8 - 9.9 K/cumm Hgb 10.4(L) 11.9 - 15.5 g/dL [facility] Hct 34.7(L) 35.6 - 45.5 % [facility] Plt 428(H) 150 - 400 K/cumm [facility] MPV 10.4 9.1 - 12.3 fL [facility] RBC 3.85(L) 3.90 - 5.20 M/cumm [facility] MCV 90.1 81.3 - 96.4 fL [facility] MCH 27.0(L) 27.1 - 33.3 pg [facility] MCHC 30.0(L) 32.3 - 35.7 g/dL [facility] RDW CV 14.1 11.1 - 14.9 % [facility] RDW SD 47.0 35.7 - 48.1 fL [facility] NRBC abs 0.00 0.00 - 0.01 K/cumm [facility] Blood 02/29/2024 10:0 8 AM NATURAL GAS ENGINEER 02/29/2024 1:01 PM NATURAL GAS ENGINEER Jeff Larkin MD PhD LAB BLOOD ORDERABLES Final Result [facility] Department [place] [address] * Creatine kinase (CK), total (02/29/2024 10:08 AM NATURAL GAS ENGINEER) Pathologist [facility] CK 65 30 - 200 Units/L Blood 02/29/2024 10:0 8 AM NATURAL GAS ENGINEER 02/29/2024 1:00 PM NATURAL GAS ENGINEER us Jeff Larkin MD PhD LAB BLOOD ORDERABLES Final Result [facility] Department [place] [address] * Comprehensive metabolic panel (02/29/2024 10:08 AM NATURAL GAS ENGINEER) [facility] Sodium 141 135 - 145 mmol/L Potassium, pl 4.2 3.3 - 4.9 mmol/L [facility] Chloride 100 97 - 110 mmol/L [facility] CO2 27 22 - 32 mmol/L [facility] Anion gap 14 2 - 15 mmol/L [facility] BUN 13 6 - 25 mg/dL [facility] Creatinine 0.73 0.60 - 1.10 mg/dL [facility] Glucose 92 70 - 199 mg/dL [facility] Comment: Interpretive Data Fasting glucose >/= 126 [...] 2022. Calcium 9.9 8.5 - 10.3 mg/dL [facility] Bilirubin, total 0.2 0.1 - 1.2 mg/dL [facility] Protein, pl 7.2 6.5 - 8.5 g/dL [facility] Albumin 4.4 3.5 - 5.0 g/dL [facility] Alk phos 76 40 - 130 Units/L [facility] ALT 26 7 - 45 Units/L [facility] AST 25 10 - 45 Units/L [facility] Blood 02/29/2024 10:0 8 AM NATURAL GAS ENGINEER 02/29/2024 1:00 PM NATURAL GAS ENGINEER us Jeff Larkin MD PhD LAB BLOOD ORDERABLES Final Result Performing Organization Address City/[facility]/ZIP Co de Phone Number [facility] [place] [address] * (ABNORMAL) Iron profile w/ IBC (02/26/2024 12:00 PM NATURAL GAS ENGINEER) [facility] Iron 28(L) 35 - 145 mcg/dL TIBC 223(L) 250 - 400 mcg/dL [facility] Transferrin saturation 13(L) 20 - 50 % [facility] Blood 02/26/2024 12:0 0 PM NATURAL GAS ENGINEER 02/26/2024 1:56 PM NATURAL GAS ENGINEER us Jeff Larkin MD PhD LAB BLOOD ORDERABLES Final Result Performing Organization Address [facility] Co de Phone Number [facility] [place] [address] * Creatine kinase (CK), total (02/26/2024 12:00 PM NATURAL GAS ENGINEER) Pathologist [facility] CK 74 30 - 200 Units/L Blood 02/26/2024 12:0 0 PM NATURAL GAS ENGINEER 02/26/2024 1:56 PM NATURAL GAS ENGINEER us Jeff Larkin MD PhD LAB BLOOD ORDERABLES Final Result Performing Organization Address [facility] Co de Phone Number [facility] [place] [address] * Hepatitis C antibody (05/18/2020 12:15 PM CDT) Hep C Ab Nonreactive Nonreactive [facility] Comment:Antibodies to HCV no t detected. Does NOT exclude the possibility of recent exposure to HCV. Blood specimen (specimen) 05/18/2020 12:15 PM CDT 05/18/2020 12:33 PM CDT us Lance Lambert MD PhD LAB MICROBIOLOGY - GENER AL ORDERABLES Edited Result - Final [facility] [place] [address] from Last 3 Months or Most Recently Relevant to Health Maintenance Insurance [employer] ACCESS CHOICE [place] [facility] PPO Advance Directives For more information, please contact: [phone] * Full Code (Latest Code Status on File) Date Activated Date Inactivated Comments 03/28/2024 8:26 PM 04/02/2024 4:50 PM * Full Code Date Activated Date Inactivated Comments 02/01/2024 5:48 AM 02/09/2024 6:01 PM * Full Code Date Activated Date Inactivated Comments 01/07/2024 2:22 PM 01/08/2024 6:20 PM * Full Code Date Activated Date Inactivated Comments 08/03/2023 9:28 AM 08/04/2023 3:46 PM Care Teams Airline Attendant Relationship Specialty Start Date End Date Lance Nielson MD PCP - General 07/01/17
--- OUTSIDE RECORDS SUMMARY | 2024-05-25 13:14 | XMS_ITS | Encounter Summary ---
Author Organization [facility] Address [address] [place] [address] Phone Care Team Providers Care Cdl Company Driver Name Role Phone Lance Nielson MD Primary Care Provider [phone] Encounter Details Date Type Department Care Team (Late st Contact Info) Description 04/21/2024 Results Follow-Up [facility] Infectious Diseases [address] [place] [address] [address] [place] [address] Pam Negrete, [facility] [address] [place] [address] Social History Tobacco Use Types Packs/Day Years Used Date Smoking Tobacco: Former Cigarettes 1 33 1 986 - 2019 Smokeless Tobacco: Never Alcohol Use Standard Drinks/Week Comments Never 0 [...] on file Legal Sex Female 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
--- OUTSIDE RECORDS SUMMARY | 2024-05-25 13:14 | XMS_ITS | Encounter Summary ---
Author Organization [facility] Address [address] [place] [address] Care Team Providers Care Attendant Honor Bar Name Role Phone Lance Nielson MD Primary Care Provider [phone] Encounter Details Date Type Department Care Team (Latest Contact Info) Description 04/28/2000 Outpatient Historical HIS OBSERVATION BED Lexx Muñoz MD [address] [facility] [place] [address] Joseph Suggs Displacement of lumbar intervertebral disc without myelopathy (Primary Dx) Social History Tobacco Use Types Packs/Day Years Used Date Smoking Tobacco: Never Assessed Comments Unknown Sex and Gender Information Value Date Recorded Sex Assigned at Not on file Legal Sex Female 3:52 AM 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
[2024-05-25 19:47] LABS: Alanine Aminotransferase 16 U/L (6-35); Albumin Level 4.9 g/dL (3.5-5.1); Alkaline Phosphatase 69 U/L (38-126); Anion Gap 12 mmol/L (4-12); Aspartate Amino Transferase 29 U/L (14-36); Bilirubin,Total 0.3 mg/dL (0.2-1.3); Blood Urea Nitrogen 14 mg/dL (7-17); Calcium 9.7 mg/dL (8.4-10.2); Carbon Dioxide 26 mmol/L (22-30); Chloride 100 mmol/L (98-107); Estimated Glomerular Filt Rate 59; Glucose 71 mg/dL (65-110); Potassium 4.2 mmol/L (3.4-5.0); Sodium 138 mmol/L (137-145)
[2024-05-25 21:01] LABS: Vitamin D 25 Hydroxy 41.6 ng/mL
[2024-05-25 21:16] LABS: Hepatitis B Surface Antigen Negative (Negative)
[2024-05-25 21:22] LABS: HAV RESULT Negative (Negative); Hepatitis B Core IgM Result Negative (Negative)
[2024-05-25 21:34] LABS: Hepatitis C Virus Antibody Negative (Negative)
== END 2024-05-25 11:34 | disposition home or self-care (01) ==
LOC: ANHGOSHLAB 11:35
PROVIDERS: PCP Family Medicine; Visit Provider Family Medicine
DX: E03.9 Hypothyroidism, unspecified (principal); R74.8 Abnormal levels of other serum enzymes; M06.09 Rheumatoid arthritis without rheumatoid factor, multiple sites; Q79.60 Ehlers-Danlos syndrome, unspecified
CPT/HCPCS: 36415; 80053; 80074; 82306; 84443

== ENCOUNTER 2024-12-02 09:45 | Outpatient (CLI) | payer OTHER, SELFPAY ==
--- OUTSIDE RECORDS SUMMARY | 2024-11-18 08:00 | XMS_ITS | Encounter Summary ---
Author Organization [facility] Address [address] [place] [address] Phone Care Team Providers Care Domestic Helper Name Role Phone Lance Nielson MD Primary Care Provider [phone] Encounter Details Date Type Department Care Team (Late st Contact Info) Description 11/18/2024 8:00 AM CDT Office Visit [facility] Medicine Rheumatology [address] 5th [address] [place] [address] Lance Lambert MD PhD [address] [facility] [id number] [place] [address] Rheumatoid arthritis of multiple sites with negative rheumatoid factor (HCC) (Primary Dx); High risk medication use; Rochelle-Danlos syndrome Social History Tobacco Use Types Packs/Day Years [...] you have a drink containing alcohol? Never 11/15/2024 Q2: How many drinks containi ng alcohol do you have on a typical day when you are drinking? Patient does not drink Q3: How often do you have si x or more drinks on one occasion? Never 11/15/2024 Personal Safety Answer Date Recorded Have you ever been in or are you currently in a harmful physical or emotional relationship or is someone making you feel afraid or unsafe? 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 Not on file Not on file documented as of this encounter Last Filed Vital Signs Vital Sign Reading Time Taken Comments Blood Pressure 137/84 11/18/2024 7:59 AM CDT Pulse 52 11/18/2024 7:59 AM CDT Temperature 37.1 C (98.7 F) 11/18/2024 7:59 AM CDT Respiratory Rate - - Oxygen Saturation 99% 11/18/2024 7:59 AM CDT Inhaled Oxygen Concentration - - Weight 85.3 kg (188 lb) 11/18/2024 7:59 AM CDT Height 158.8 cm (5' 2.5) 11/18/2024 7:59 AM CDT Body Mass Index 33.84 11/18/2024 7:59 AM CDT documented in this encounter Patient Instructions * Patient Instructions* Lance Lambert MD PhD - 11/18/2024 8:00 AM CDT To contact Dr. Lambert's Binder Cutter Hand Vonda Oreilly: - Option # 2 - Option # 14 Email: Please use [employer] documented in this encounter Progress Notes * Lance Lambert MD PhD - 11/18/2024 8:00 AM CDT Rheumatology PATIENT NAME: Allyson Her : 1970 BEATRIS: 11/18/2024 Subjective Chief Complaint: Joint Pain HPI: Allyson Her is a 54 y.o. year old female with a PMH of Rochelle-Danlos, HLD, Thyroid nodule s/p PATIÑO c/b hypothyroidism, Raynaud's, seronegative RA who presents for interval follow-up of RA. She was last seen on Apr 22. Interval History: She is off Rinvoq 15mg daily and LEF 20mg daily due ot her knee infection. She takes diclofenac andibuprofen PRN. Also takes Hydrocodone from Rochelle-Danlos associated joint dislocation. She is also taking alendronate for osteoporosis. 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 She underwent I&D followed by revision of her right TKA and has been on antibiotic continuously since then. She has only had 2 bad flares of her RA since last visit. Currently, her RA is mildly active but not overtly flaring. Her prosthetic knee repeatedly dislocates / subluxes which is quite painful. She says that her right ankle has fluid in it and is popping and painful to walk on. She is currently off antibiotics in August. Review of Systems All other systems were negative Disease History: 2013 - she got a virus and then every joint started to hurt 11/2014 - Uric acid 4.8, ESR 8, CRP 02, JEFFREY neg, RF 15 (all fairly unremarkable) 01/2015 - CBC/CMP wnl 11/2015 - TSH wnl 2016 - She developed Raynaud's Prior to 03/2017 - Her PCP Dr Nielson treated her with MTX and SSZ. The SSZ did not help much after4 months and MTX was complicated by nausea/vomiting. She took oral steroids (potentially prednisone) that was complicated by mood lability. The cortisone injections in her joints led to swelling, erythema and pain. 03/2017 - Referred to Rheum for joint pain: She had AM stiffness lasting close to 2 hrs in hands, knees, hips, elbows, feet that improved with activity. She complained of gelling. Noted MCP/PIP swelling that self resolved after 1-2 weeks with NSAIDs and difficulty gripping objects and dropping items. She also complained of back pain/stiffness and in her hips that was worst in the morning and improves with activity. RF/CCP neg, ESR/CRP wnl, Xrays with erosions of 3rd and 4th right MCPs She has a daughter with PsO and a grandfather with RA Treatment History: MTX (d/c'd due to GI toxicity) SSZ (d/c'd due to lack of efficacy) LEF (03/2017 - present) Humira (01/2018 - 04/2018; d/c'd due to lack of efficacy) Simponi (04/2018 - 11/2018; d/c'd due to lack of efficacy) Rinvoq (11/2018 - present) Alendronate (12/2021 - present) Objective Physical Exam BP 137/84 Pulse 52 Temp 37.1 ??C (98.7 ??F) Ht 158.8 cm (5' 2.5) Wt 85.3 kg (188 lb) SpO2 99% BMI 33.84 kg/m?? GEN: NAD, WDWN MSK: Synovitis of 3rd and 4th PIPs bilaterally. Otherwise, hands, wrists, and elbows without synovial swelling, increased warmth, tenderness to palpation, or overlying erythema. NEURO: AAOX3 PSYCH: Appropriate affect. Labs: No results found for this or any previous visit (from the past week). Assessment Assessment: 1. Rheumatoid arthritis of multiple sites with negative rheumatoid factor (HCC) 2. High risk medication use 3. Rochelle-Danlos syndrome Plan Plan: # Seronegative erosive RA (less likely SpA) - active - holding LEF 20mg daily and Rinvoq 15mg daily due to recent infection (and not clear whether it has cleared) --- will reach out to Drs. Iglesias/Marin in Ortho and Drs. Chatterjee/Penelope in ID to coordinate a treatment plan Addendum (12/01/24): Discussed case with Drs. Funes and Shena. No immediate surgical plan. No evidence of active infection. OK to restart RA meds. Will restart Rinvoq and re-eval whether to restartLEF at next visit. 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 # Bone Health - DEXA scan in 2021 showed osteopenia - she also has had multiple stress fractures in her foot - family history of osteoporosis - suspected early menopause in her 30's after hysterectory in her 20's - history of RA - given all these risk factors, cont alendronate Immunizations: Immunization History Administered Date(s) Administered Influenza, Quadrivalent, Split, Preservative Free, Intramuscular 12/04/2017 Influenza, Trivalent, Preservative Free, Intramuscular 12/01/2018, 11/24/2019 Influenza, Unspecified 11/17/2023 Moderna SARS-CoV-2 Monovalent Vaccination (12+ YRS) 03/09/2020, 04/06/2020 Pfizer Sars-Cov-2 Bivalent Vaccination (12+ YRS) 12/06/2021 Follow-up: Return in about 14 weeks (around 02/24/2025). documented in this encounter Plan of Treatment Not on file documented as of this encounter Results * CRP (acute phase) (11/18/2024 8:41 AM CDT) Pathologist [facility] C-Reactive Protein, Acute <3.0 <5.0 mg/L [facility] Blood 11/18/2024 8:41 AM CDT 11/18/2024 9:40 AM CDT Lance Lambert MD PhD LAB BLOOD ORDERABLES Fin al Result [facility] * Erythrocyte sedimentation rate (11/18/2024 8:41 AM CDT) Pathologist [facility] Erythrocyte Sedimentation Rate 17 <30 mm/hr [facility] Blood 11/18/2024 8:41 AM CDT 11/18/2024 9:40 AM CDT us Lance Lambert MD PhD LAB BLOOD ORDERABLES Fin al Result [facility] * (ABNORMAL) Comprehensive metabolic panel (11/18/2024 8:41 AM CDT) Total Protein 7.5 6.1 - 8.4 g/dL [facility] Albumin 4.4 3.5 - 5.2 g/dL [facility] Calcium 9.0 8.6 - 10.3 mg/dL [facility] BUN 13 7 - 23 mg/dL [facility] Total Bilirubin 1.22 0.20 - 1.40 mg/dL [facility] Alk Phos, Total 56 35 - 129 IU/L [facility] AST (SGOT) 14 11 - 47 IU/L [facility] ALT (SGPT) 9 6 - 53 IU/L [facility] Comment:Repeated and Verifie d Creatinine 0.66 0.60 - 1.10 mg/dL [facility] Sodium 142 135 - 145 mmol/L [facility] Potassium 4.2 3.3 - 5.1 mmol/L [facility] Chloride 108(H) 95 - 107 mmol/L [facility] CO2 Content 25 21 - 29 mmol/L [facility] Glucose 104(H) 64 - 99 mg/dL [facility] Comment: NONFASTING GLUCOSE RANGE = 64-199 mg/dL FASTING GLUCOSE 64 - 99 = NORMAL FASTING GLUCOSE 100 - 125 = IMPAIRED FASTING GLUCOSE FASTING GLUCOSE >=126 = PROVISIONAL DIAGNOSIS OF DIABETES eGFR >90.0 >60.0 mL/min/1.7 3 m2 [facility] Comment:eGFR is calculated b y the CKD-EPIcr() equation (2020). Blood 11/18/2024 8:41 AM CDT 11/18/2024 9:40 AM CDT Lance Lambert MD PhD LAB BLOOD ORDERABLES Fin al Result [facility] * (ABNORMAL) CBC with auto differential (11/18/2024 8:41 AM CDT) White Blood Count 7.6 3.6 - 11.2 K/uL [facility] RBC 4.54 3.63 - 4.92 M/uL [facility] Hemoglobin 10.8(L) 11.9 - 15.5 g/dL [facility] Hematocrit 34.7(L) 36.1 - 44.3 % [facility] MCV 76.3(L) 80.0 - 97.6 fL [facility] Comment:Repeated and Verifie d MCH 23.7(L) 26.7 - 33.7 pg [facility] MCHC 31.0(L) 32.7 - 35.5 g/dL [facility] RBC Dist Width 16.8 12.3 - 17.0 % [facility] Platelet Count 444(H) 140 - 440 K/uL [facility] MPV 7.9 6.8 - 10.4 fL [facility] Neutrophils % 57.4 38.7 - 74.5 % [facility] Lymphocyte % 30.0 20.0 - 54.3 % [facility] Monocytes % 9.3 4.3 - 13.5 % [facility] Eosinophils % 2.3 0.0 - 6.0 % [facility] Basophil % 1.0 0.0 - 3.0 % [facility] Absolute Neutrophil 4.4 1.8 - 6.6 K/uL [facility] Absolute Lymphocyte 2.3 0.8 - 3.3 K/uL [facility] Absolute Monocyte 0.7 0.2 - 1.2 K/uL [facility] Absolute Eosinophil 0.2 0.0 - 0.5 K/uL [facility] Absolute Basophil 0.1 0.0 - 0.2 K/uL [facility] Nucleated RBC % 0.1 0.0 - 0.4 /100 WBC [facility] Blood 11/18/2024 8:41 AM CDT 11/18/2024 9:40 AM CDT Lance Lambert MD PhD LAB BLOOD ORDERABLES Fin al Result [facility] documented in this encounter Visit Diagnoses Diagnosis Rheumatoid arthritis of multiple sites with negative rheumatoid factor (HCC)- Primary High risk medication use Rochelle-Danlos syndrome documented in this encounter Care Teams Domestic Helper Relationship Specialty Start Date End Date Lance Nielson MD PCP - General 07/01/17 documented as of this encounter
--- OUTSIDE RECORDS SUMMARY | 2024-12-02 10:15 | XMS_ITS | Clinical Summary ---
Author Organization [facility] Address [address] [place] [address] Care Team Providers Care Communications Supervisor Name Role Phone Lance Nielson MD Primary Care Provider [phone] Allergies Active Allergy Reactions Criticality Noted Date Comments Corticosteroids (Glucocorticoids) Agitation Low 11/24/2019 Cortisone Flushing (skin),Join t pain,Rash,Redness,Swe lling Medium 06/16/2009 Daptomycin Other (See comments) High 04/22/2024 Neutropenia (ANC 0) Latex Hives Medium 06/21/2012 Loratadine Palpitations Low Nickel Swelling Medium 08/02/2020 Medications calcium carb/vit D3/minerals (CALCIUM-VITAMIN D ORAL)Indications: supplement Take 1 tablet/capsule by mouth nightly Active fexofenadine HCl (JUANY ORAL)Indications: allergies Take 1 tablet/capsule by mouth nightly Active diclofenac DR (VOLTAREN) 75 mg EC tabletIndications :Rheumatoid Arthritis Take 1 tablet (75 mg total) by mouth 2 (two) times a day [address] (NexIUM) 40 mg capsuleIndication s:Stress Ulcer Prophylaxis Take 40 mg by mouth 2 (two) times a day Active alendronate (FOSAMAX) 70 mg tabletIndications :Post-Menopausal Osteoporosis Take 1 tablet (70 mg total) by mouth every 7 days Take in the morning with a full glass of water, on an empty stomach, and do not take anything else by mouth or lie down for the next 30 min. 5 Active Wegovy 0.25 mg/0.5 mL auto-injector 4 Active peg 400-propylene glycol (SYSTANE) 0.4-0.3 % ophthalmic solutionIndicatio ns:Dry Eye Administer 2 drops into both eyes as needed (Dry eyes) Active levothyroxine (SYNTHROID) 125 mcg tablet Take 1 tablet (125 mcg total) by mouth daily 5 Active HYDROcodone-aceta minophen (NORCO) 5-325 mg per tabletIndications :Pain Take 2 tablets by mouth every 4 (four) hours as needed for pain (moderate to severe pain ) 42 tablet 5 Active Active Problems Problem Noted Date Diagnosed Date Pain and swelling of right ankle 03/29/2024 Assessment & Plan (03/31/2024 4:47 PM CELLULAR PHONE REPAIRER): Ankle aspirate is inconclusive (1140 WBCs with 55% PMNs) and difficult to determine if infected due to recent prolonged antibiotic course. Crystals negative. Cultures remain NGTD. 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 Main ongoing issue is feeling of R knee instability with associated pain and swelling. - from ID standpoint, OK to resume RA meds at this time pending definitive discussion with Ortho Recon regarding further surgery. - I discussed with the patient my impression, the imaging findings, and treatment plan in detail with a focus on the etiology, natural history, and management of symptoms. - I discussed with the patient the rationale for treatment, culture results, risk of recurrent infection, signs/symptoms of recurrent infection, and to contact ID clinic with any questions or concerns. Assessment & Plan (08/23/2024 1:56 PM CDT): She developed right knee and lower [...] was dc'ed 04/12/24, followed by Daptomycin 04/15/24. Bactrim DS/Metronidazole + Cipro -> Augmentin + Cipro due to severe N/V and poor appetite. She developed intermittent low-grade fevers (T max 100.5), increased pain in right knee and swelling, for which she was seen in Ortho clinic for evaluation and synovial fluid aspiration on 05/26/24. Bacterial cultures NG. She is overall clinically doing well, however with increased swelling and fluid at Right knee, unclear if this is due to increased physical activity vs infection. Suspect she will need longer term PO suppression due to high risk revision surgery, minimum one year (EOT 03/28/25). Will discuss alternate antimicrobials due to recurrent severe GI intolerance. - 06/08/24 ECG Qtc = 432 - will repeat inflammatory markers today in clinic. - I discussed with the patient my impression, the imaging findings, and treatment plan in detail with a focus on the etiology, natural history, and management of symptoms. - I discussed with the patient the rationale for treatment, culture results, risk of recurrent infection, signs/symptoms of recurrent infection, and to contact ID clinic with any questions or concerns. Assessment & Plan (06/08/2024 2:14 PM CDT): She developed right knee and lower [...] was dc'ed 04/12/24, followed by Daptomycin 04/15/24. Bactrim DS/Metronidazole + Cipro -> Augmentin + Cipro due to severe N/V and poor appetite. She developed intermittent low-grade fevers (T max 100.5), increased pain in right knee and swelling, for which she was seen in Ortho clinic for evaluation and synovial fluid aspiration on 05/26/24. Bacterial cultures NG, further broad range sequencing results still pending. She is clinically overall doing well at this time. - suspect she will need longer term PO suppression due to high risk revision surgery, will plan to continue Augmentin 875/125 mg PO BID + ciprofloxacin 750 mg PO BID for minimum one year (EOT 03/28/25) - repeat ECG to monitor QT interval while on long-term fluoroquinolone. Qtc = 432 - repeat inflammatory markers, CBC w Diff and BMP today. - I discussed with the patient my impression, the imaging findings, and treatment plan in detail with a focus on the etiology, natural history, and management of symptoms. - I discussed with the patient the rationale for treatment, culture results, risk of recurrent infection, signs/symptoms of recurrent infection, and to contact ID clinic with any questions or concerns. Assessment & Plan (05/02/2024 10:30 AM CDT): [...] concerns. Assessment & Plan (03/31/2024 4:46 PM CELLULAR PHONE REPAIRER): Ms. Allyson Her is a 54 y.o. female with a [...] sent metronidazole prescription to her home pharmacy ([facility]). Please note- the outpatient prescription is [...] recommendations. Assessment & Plan (03/19/2024 2:20 PM CELLULAR PHONE REPAIRER): She underwent Right leg I&D on 02/01/24. [...] 02/03/2024 Assessment & Plan (02/26/2024 7:50 PM CELLULAR PHONE REPAIRER): She underwent Right leg I&D on 02/01/24. [...] 02/01/2024 Assessment & Plan (02/08/2024 12:15 PM CELLULAR PHONE REPAIRER): Allyson Her is a 54 y.o. female with a [...] the surgical incision prompting presentation to the [facility] ED on 01/31/2024. She denied any [...] would discuss not taking Plaquenil with her record librarian. 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 12/24/2017 High [...] Encounters Date Type Department Care Team Description 11/23/2024 2:40 PM CDT Office Visit [facility] Medicine Infectious Diseases [address] [place] [id number] Pam Negrete NP Needs flu shot (Primary Dx); Encounter for screening examination for sexually transmitted disease; Infection of prosthetic knee joint, sequela 11/18/2024 8:30 AM CDT Lab [facility] Endocrinology Metabolism and Lipid [address] [place] [address] [place] [address] Rheumatoid arthritis of multiple sites with negative rheumatoid factor (HCC); High risk medication use 11/18/2024 8:00 AM CDT Office Visit [facility] [address] [place] [address] [place] [address] Lance Lambert MD PhD Rheumatoid arthritis of multiple sites with negative rheumatoid factor (HCC) (Primary Dx); High risk medication use; Rochelle-Danlos syndrome 11/15/2024 8:00 AM CDT Office Visit [facility] [address] [place] [address] [place] [address] Lexx Funes MD PhD Failed total knee, right, initial encounter (Primary Dx); Rheumatoid arthritis of multiple sites with negative rheumatoid factor (HCC); 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, subsequent encounter 10/28/2024 10:11 AM CDT - 10/28/2024 11:59 PM CDT Hospital Encounter [facility] Radiology at [facility] [address] [place] [address] History of arthroplasty of right knee Discharge Disposition: Discharge to home or self care 10/28/2024 9:00 AM CDT Office Visit [facility] [address] [facility] [address] [place] [address] Efrain Iglesias MD History of arthroplasty of right knee (Primary Dx) 10/18/2024 Orders Only [facility] Scanning, Provider 10/12/2024 Orders Only [facility] Scanning, Provider 10/10/2024 10:15 AM CDT - 10/10/2024 11:59 PM CDT Hospital Encounter [facility] Radiology [address] [place] [address] Aubrey London MD Ponkowski, Michael James, MD Lardinois, Emily E., RN History of arthroplasty of right knee Discharge Disposition: Discharge to home or self care 10/07/2024 Telephone [facility] Radiology [address] [place] [address] Kathy Loyola B.A. 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 Not on file Not on file Obstetrics History Last Filed Vital Signs Vital Sign Reading Time Taken Comments Blood Pressure 133/84 11/23/2024 2:26 PM CDT Pulse 93 11/23/2024 2:26 PM CDT Temperature 36.9 C (98.5 F) 11/23/2024 2:26 PM CDT Respiratory Rate 18 10/10/2024 10:20 AM CDT Oxygen Saturation 99% 11/23/2024 2:26 PM CDT Inhaled Oxygen Concentration - - Weight 84.8 kg (187 lb) 11/23/2024 2:26 PM CDT Height 158 cm (5' 2.21) 11/23/2024 2:26 PM CDT Body Mass Index 33.98 11/23/2024 2:26 PM CDT Plan of Treatment Health Maintenance Due Date Last Done Comments Breast Cancer Screening-Mammogram 1970 Colon Cancer Screening-Colonoscopy 1970 Depression Screening 1970 Regular Well Visit/Exam 18-64 01/04/1988 Lung Cancer Screening 01/04/2020 Zoster Vaccine (1 of 2) 01/04/2020 Covid-19 Vaccine ( season) 2024 12/06/2021, 04/06/2020, 03/09/2020 DTaP/Tdap/Td Vaccine (3 - Td or Tdap) 08/21/2031 08/20/2021, 09/03/2009 Hepatitis B Screening Completed 03/27/2017 Hepatitis C Screening Completed 05/18/2020 , 05/18/2020, 03/27/2017 Influenza Vaccine Completed 11/23/2024, , 11/24/2019, Additional history exists Pneumococcal vaccine <65 Aged Out No longer eligible based on patient's age to complete this topic Medical Devices Implanted Type Area Placement Specialist Device Identifier Shelf Expiration Date Model / Serial / Lot Lundberg & Nephew/Richco/Ort ho Zeny Ii 13mm Constrain Knee 3-4 Insert Articular Uhmwpe [id number] - S0 - [id number] Implanted:Qty: 1 on 08/03/2023 by Efrain Iglesias MD at [facility] Other - see comments [employer]hew/Richco/ Ortho [id number] 03/22/2026 [id number] / 0 / [id number] Fanchimp Inc [id number] Screw Bone L26mm Od3.5mm Foot Ankle Cannulated Color Coded Osteotomy - S0 - [id number] Implanted:Qty: 1 on 12/08/2019 by Og Garcia MD at [facility] Screw Left: Foot [employer]anch[employer] Inc [id number] / 0 / [employer]anch[employer] Inc [id number] Screw Bone Medline Unite L24mm Od3.5mm Head Nonsterile - S0 - [id number] Implanted:Qty: 1 on 12/08/2019 by Og Garcia MD at [facility] Screw Left: Foot [employer] Inc [id number] / 0 / [employer] Extremity Systems [employer]. 7115-1115kt Dynaforce [id number] Superelastic Staple Bone Nitinol Sterile - [id number] Implanted:Qty: 1 on 12/08/2019 by Og Garcia MD at [facility] Left: Foot [employer] EX[employer] [facility] [id number] 02/19/2020 7115-1818KT / / [id number] [employer] Extremity [employer] [facility] 7118-2020kt Dynaforce [id number] Superelastic Staple Bone Nitinol Sterile - [id number] Implanted:Qty: 1 on 12/08/2019 by Og Garcia MD at [facility] Left: Foot [employer] [facility] [id number] 04/15/2021 7118-2020KT / / [id number] Medline [place] [employer] [id number] Screw Bone Medline Unite L18mm Od3.5mm Foot Ankle Nonlock - [id number] Implanted:Qty: 1 on 08/16/2020 by Og Garcia MD at [facility] Left: Foot [employer] Inc [id number] / / NONE [employer] Inc [id number] Screw 24mm 3.5mm Bone Medline Unite Foot Ankle Lock - [id number] Implanted:Qty: 2 on 08/16/2020 by Og Garcia MD at [facility] Left: Foot [employer] Inc [id number] / / NONE [employer] Inc [id number] Screw 20mm 3.5mm Bone Medline Unite Foot Ankle Lock - [id number] Implanted:Qty: 2 on 08/16/2020 by Og Garcia MD at [facility] Left: Foot [employer] [place] [employer] [id number] / / NONE ImageProte[employer] Inc [id number] Katie 9x15mm Compression Ankle Foot Staple Bone Stainless - [id number] - [id number] Implanted:Qty: 1 on 08/16/2020 by Og Garcia MD at [facility] Left: Foot [employer] Inc [id number] / [id number] / Medline Industries Inc [id number] Screw Bone Medline Unite L20mm Od3.5mm Foot Ankle Nonlock - [id number] Implanted:Qty: 1 on 08/16/2020 by Og Garcia MD at [facility] Left: Foot [employer] [place] [employer] [id number] / / Medline Industries Inc [id number] Plate Bone Medline Unite Straight Tarsometatarsal 3 Hole - [id number] Implanted:Qty: 1 on 08/16/2020 by Og Garcia MD at [facility] Left: Foot [employer] [id number] / / [employer] Inc 876p-0400 Mini Ignite Power Mix Injectable Graft 4ml Synthetic Tissue - [id number] - [id number] Implanted:Qty: 1 on 08/16/2020 by Og Garcia MD at [facility] Left: Foot [employer] Inc 03/07/2024 [id number] / [id number] / Fanch[employer] Inc [id number] Plate Bone Medline Unite Tarsometatarsal Nonsterile Lapidus - [id number] Implanted:Qty: 1 on 08/16/2020 by Og Garcia MD at [facility] Left: Foot [employer] [id number] / / F[employer] Inc [id number] Screw Bone Medline Unite L22mm Od3.5mm Foot Ankle Nonlock - [id number] Implanted:Qty: 1 on 08/16/2020 by Og Garcia MD at [facility] Left: Foot [employer] [id number] / / NONE [employer] [place] [employer] [id number] Screw Bone L40mm Od4mm Foot Ankle Cannulated Color Coded Osteotomy - [id number] Implanted:Qty: 1 on 08/16/2020 by Og Garcia MD at [facility] Left: Foot Medline [place] [employer] [id number] / / NONE [employer]hew[employer]Rich[employer]/Ort ho Zeny Ii 13mm Constrain Knee 3-4 Insert Articular Uhmwpe [id number] - [id number] Implanted:Qty: 1 on 02/04/2024 by Efrain Iglesias MD at [facility] Right: Knee [employer]hew[employer]Rich[employer]/ Ortho [id number] 09/22/2032 [id number] / / [id number] Biocom[employer]ites Stimulan Rapid Cure Kit Paste It Manager 10cc 20cc Bone Void [id number] - [id number] Implanted:Qty: 1 on 02/04/2024 by Efrain Iglesias MD at [facility] Right: Knee [employer]ocom[employer] [id number] 04/15/2025 [id number] / / [id number] Ernesto [employer] Inc Baseplate Tibial Knee Cemented Right Fixed Stemmed Persona Size E Tivanium [id number] - [id number] Implanted:Qty: 1 on 03/28/2024 by Efrain Iglesias MD at [facility] Right: Knee [employer] [id number] 10/10/2033 [id number] / / [id number] Ernesto [employer] Persona 14mm 30+ Mm Knee Tibia Taper Extension Stem [id number] - [id number] Implanted:Qty: 1 on 03/28/2024 by Efrain Iglesias MD at [facility] Right: Knee [employer] Inc [id number] 04/04/2033 [id number] / / [id number] [employer] Simplex P Full Dose Radiopaque Preblend Cement Bone Tobramycin 6197-9-001 - [id number] Implanted:Qty: 5 on 03/28/2024 by Efrain Iglesias MD at [facility] Right: Knee [employer] [id number] 03/18/2025 6197-9-001 / / [id number] [employer] Simplex P Full Dose Radiopaque Preblend Cement Bone Tobramycin 6197-9-001 - [id number] Implanted:Qty: 1 on 03/28/2024 by Efrain Iglesias MD at [facility] Right: Knee [employer] [id number] 01/15/2025 6197-9-001 / / [id number] Ern[employer] Persona 18mm Constrain Posterior Stabilized Knee Right 6-9 Ef [id number] - [id number] Implanted:Qty: 1 on 03/28/2024 by Efrain Iglesias MD at [facility] Right: Knee [employer] [id number] 04/06/2028 [id number] / / [id number] Ernesto [employer] Inc Component Femoral Knee Cemented Std Right Persona Size 6 Tivanium [id number] - [id number] Implanted:Qty: 1 on 03/28/2024 by Efrain Iglesias MD at [facility] Right: Knee [employer] 03/04/2033 [id number] / / [id number] Explanted Type Area Placement Specialist Device Identifier Shelf Expiration Date Model / Serial / Lot [employer] Nephew/Richco/ Ortho Zeny Ii 13mm Constrain Knee 3-4 Insert Articular Uhmwpe [id number] - S0 - [id number] Explanted:Qty: 1 on 08/03/2023 at [facility] Other - see comments [employer]hew[employer]/ Ortho [id number] 08/28/2031 [id number] / 0 [id number] [employer] [id number] Haydee .45in 9in 1 [place] [employer] Wire Fixation - [id number] Explanted:Qty: 1 on 12/08/2019 at [facility] Left: Foot [employer] [id number] / / [employer] [id number] Haydee .062in 9in [place] One [employer] Orthopedic Wire - S0 - [id number] Explanted:Qty: 2 on 12/08/2019 at [facility] [place] Left: Foot [employer] [id number] / 0 / Ernesto [employer] Inc [id number] Haydee 1.6mm 150mm 1 End [place] Wire Fixation Stainless - [id number] Explanted:Qty: 1 on 08/16/2020 by Og Garcia MD at [facility] Left: Foot [employer] [id number] / / F[employer] Inc [id number] Pin Fixation Medline Unite L10mm Od1.1mm - [id number] Explanted:Qty: 2 on 08/16/2020 by Og Garcia MD at [facility] [place] Left: Foot [employer] [id number] / / Procedures Procedure Name Priority Date/Time Associated Diagnosis Comments CBC WITH AUTO DIFFERENTIAL Routine 11/18/2024 8:41 AM CDT Rheumatoid arthritis of multiple sites with negative rheumatoid factor (HCC) High risk medication use COMPREHENSIVE METABOLIC PANEL Routine 11/18/2024 8:41 AM CDT Rheumatoid arthritis of multiple sites with negative rheumatoid factor (HCC) High risk medication use ERYTHROCYTE SEDIMENTATION RATE Routine 11/18/2024 8:41 AM CDT Rheumatoid arthritis of multiple sites with negative rheumatoid factor (HCC) High risk medication use CRP (ACUTE PHASE) Routine 11/18/2024 8:4 1 AM CDT Rheumatoid arthritis of multiple sites with negative rheumatoid factor (HCC) High risk medication use XR KNEE RIGHT 3 VIEWS Schedule Routine, Read Routine (OP Routine) 10/28/2024 10:20 AM CDT History of arthroplasty of right knee SCAN - LABS 10/18/2024 3:04 PM CDT SCAN - LABS 10/12/2024 3:14 PM CDT US GUIDED ARTHROCENTESIS MAJOR JOINT Schedule Routine, Read Routine (OP Routine) 10/10/2024 10:50 AM CDT History of arthroplasty of right knee CELL DIFFERENTIAL, BODY FLUID Routine 10/10/2024 10:48 AM CDT CRYSTAL ANALYSIS, BODY FLUID Routine 10/10/2024 10:48 AM CDT CELL COUNT W/REFLEX DIFFERENTIAL, BODY FLUID Routine 10/10/2024 10:48 AM CDT AEROBIC AND ANAEROBIC CULTURE AND GRAM STAIN Routine 10/10/2024 10:48 AM CDT HEPATITIS C ANTIBODY Routine 05/18/2020 12:15 PM CDT Needle exposure, initial encounter from Last 3 Months or Most Recently Relevant to Health Maintenance Results * (ABNORMAL) CBC with auto differential (11/18/2024 [...] PhD LAB BLOOD ORDERABLES Fin al Result [facility] * Erythrocyte sedimentation rate (11/18/2024 8:41 AM CDT) Erythrocyte Sedimentation Rate 17 <30 mm/hr [facility] Blood 11/18/2024 8:41 AM CDT 11/18/2024 9:40 AM CDT Lance Lambert MD PhD LAB BLOOD ORDERABLES Fin al Result Performing Organization Address City/[facility]/ZIP Co de Phone Number [facility] * CRP (acute phase) (11/18/2024 8:41 AM CDT) C-Reactive Protein, Acute <3.0 <5.0 mg/L [facility] Blood 11/18/2024 8:41 AM CDT 11/18/2024 9:40 AM CDT Lance Lambert MD PhD LAB BLOOD ORDERABLES Fin al Result Performing Organization Address [facility] de Phone Number [facility] * (ABNORMAL) Comprehensive metabolic panel (11/18/2024 8:41 AM CDT) Pathologist [facility] Total Protein 7.5 6.1 - 8.4 g/dL [...] [facility] * XR Knee Right 3 Views (10/28/2024 10:20 AM CDT) Anatomical Region Laterality Modality Lower Extremities, Knee Right Computed Radiography 10/28/2024 10:5 6 AM CDT Impressions 10/28/2024 10:56 AM CDT 1. Unchanged right total knee arthroplasty in near-anatomic alignment. Electronically signed by: Beena Olivas MD Narrative 10/28/2024 10:56 AM CDT EXAMINATION: XR KNEE RIGHT 3 VIEWS HISTORY: Knee pain. FINDINGS: Comparison to 08/26/2024. Unchanged right total knee arthroplasty in near-anatomic alignment. No periprosthetic fracture or component migration. Unchanged patella baja. Moderate effusion. Soft tissue postoperative changes along the medial proximal calf are unchanged. Procedure Note Beena Olivas MD - 10/28/2024 EXAMINATION: XR KNEE RIGHT 3 VIEWS HISTORY: Knee pain. FINDINGS: Comparison to 08/26/2024. Unchanged right total knee arthroplasty in near-anatomic alignment. No periprosthetic fracture or component migration. Unchanged patella baja. Moderate effusion. Soft tissue postoperative changes along the medial proximal calf are unchanged. IMPRESSION: 1. Unchanged right total knee arthroplasty in near-anatomic alignment. Electronically signed by: Beena Olivas MD us Efrain Iglesias MD IMG XR PROCEDURES Fi nal Result * SCAN - LABS (10/18/2024 3:04 PM CDT) us Provider Scanning Final Result * SCAN - LABS (10/12/2024 3:14 PM CDT) us Provider Scanning Final Result * US Guided Aspiration or Injection of Major Joint (10/10/2024 10:50 AM CDT) Anatomical Region Laterality Modality Entire body N/A X-Ray Angiograph y 10/10/2024 11:0 9 AM CDT Impressions 10/10/2024 12:05 PM CDT 1. Right knee joint aspiration under ultrasound guidance. 30 mL of clear straw-colored fluid was aspirated and sent for cell count, crystal evaluation, Gram stain, culture, and Synovasure. Dictated by: Lance Camara MD The radiology attending physician has personally reviewed this study, and had reviewed and/or edited this written report and agrees with it. Electronically signed by: Aubrey London M.D. Narrative 10/10/2024 12:05 PM CDT EXAMINATION: Right knee joint aspiration under ultrasound guidance HISTORY: Right knee arthroplasty with concern for periprosthetic joint infection ATTENDING PRESENCE: Dr. Aubrey London M.D., the attending radiologist, was present from the beginning to the end of the procedure. SEDATION: The patient did not require conscious sedation for the procedure. TECHNIQUE: The risks, benefits and alternatives were discussed and informed consent was obtained. Prior to beginning the procedure, [place] Protocol was performed to confirm the patient's identity and the planned procedure. Sterile barriers used during the procedure included cap, mask, hand hygiene, sterile gloves, and sterile drape. Chloraprep was used for cutaneous antisepsis. The patient was placed supine on the procedure table. The right knee joint was localized with ultrasound guidance. Local anesthesia was achieved with subcutaneous injection of 1% lidocaine 2 mL. An 18-gauge needle was then introduced into the joint under imaging guidance. 30 mL of clear straw-colored fluid was aspirated. The needle was removed. The skin was cleansed with hydrogen peroxide, and a bandage was placed. Complication: None Type: None ESTIMATED BLOOD LOSS: None CONDITION: Stable condition. DISCHARGED TO: Home FINDINGS: Sonographic images demonstrate a small to moderate sized right knee effusion in the suprapatellar region. Imaging confirm appropriate position of the needle tip within the effusion. Procedure Note Aubrey London MD - 10/10/2024 EXAMINATION: Right knee joint aspiration under ultrasound guidance HISTORY: Right knee arthroplasty with concern for periprosthetic joint infection ATTENDING PRESENCE: Dr. Aubrey London M.D., the attending radiologist, was present from the beginning to the end of the procedure. SEDATION: The patient did not require conscious sedation for the procedure. TECHNIQUE: The risks, benefits and alternatives were discussed and informed consent was obtained. Prior to beginning the procedure, [place] Protocol was performed to confirm the patient's identity and the planned procedure. Sterile barriers used during the procedure included cap, mask, hand hygiene, sterile gloves, and sterile drape. Chloraprep was used for cutaneous antisepsis. The patient was placed supine on the procedure table. The right knee joint was localized with ultrasound guidance. Local anesthesia was achieved with subcutaneous injection of 1% lidocaine 2 mL. An 18-gauge needle was then introduced into the joint under imaging guidance. 30 mL of clear straw-colored fluid was aspirated. The needle was removed. The skin was cleansed with hydrogen peroxide, and a bandage was placed. Complication: None Type: None ESTIMATED BLOOD LOSS: None CONDITION: Stable condition. DISCHARGED TO: Home FINDINGS: Sonographic images demonstrate a small to moderate sized right knee effusion in the suprapatellar region. Imaging confirm appropriate position of the needle tip within the effusion. IMPRESSION: 1. Right knee joint aspiration under ultrasound guidance. 30 mL of clear straw-colored fluid was aspirated and sent for cell count, crystal evaluation, Gram stain, culture, and Synovasure. Dictated by: Lance Camara MD The radiology attending physician has personally reviewed this study, and had reviewed and/or edited this written report and agrees with it. Electronically signed by: Aubrey London M.D. us Efrain Iglesias MD IMG US PROCEDURES Fi nal Result * Crystal Analysis, Body Fluid (10/10/2024 10:48 AM CDT) Specimen type, fld Synovial Comment:Testing performed by : [facility], [address] [place] [address]., [id number] Crystals Not Present Not Present OD[facility] HORTA Comment:Testing performed by : [facility], [address] [place] [address]., [id number] Fluid 10/10/2024 10:4 8 AM CDT 10/10/2024 12:16 PM CDT Narrative ODAL[facility] MURRELLCH - 10/10/2024 2:56 PM CDT Right knee Efrain Iglesias MD LAB BODY FLUIDS AND STOOLS ORDERABLES Final Result Performing Organization Address [facility] de Phone Number [facility] [address] [employer] [address] * Cell Differential, Body Fluid (10/10/2024 10:48 AM CDT) Total cells diffed 200 % Comment: Interpretive Data Unless otherwise specified, the reference range and other method performance specifications have not been established for CSF/Body Fluid tests. The test results should be integrated into the clinical context for interpretation. Current interpretive data was last revised on 2018. Neutrophils, fld 11 % [facility] Lymphs, fld 59 % [facility] Macrophages, fld 27 % [facility] Synovial cells, fld 3 % [facility] Fluid 10/10/2024 10:4 8 AM CDT 10/10/2024 11:01 AM CDT Efrain Iglesias MD LAB BODY FLUIDS AND STOOLS ORDERABLES Final Result Performing Organization Address [facility] Co de Phone Number [facility] [address] [employer]. [facility] [employer] [place], [place] [id number] * Cell count w/rflx diff, body fluid (10/10/2024 10:48 AM CDT) Specimen type, fld Synovial Color, fld Yellow ODALYS HORTA Clarity, fld Clear [facility] Nucleated cells, fld 152 /cumm ODALYS WOLFWKAVON Comment: Interpretive Data Unless otherwise specified, the reference range and other method performance specifications have not been established for CSF/Body Fluid tests. The test results should be integrated into the clinical context for interpretation. Current interpretive data was last revised on 2018. RBC, fld 3,000 /cumm [facility]AL[facility] HORTA Fluid 10/10/2024 10:4 8 AM CDT 10/10/2024 11:01 AM CDT Narrative ODALYS HORTA - 10/10/2024 12:21 PM CDT Right knee Manual cell count Efrain Iglesias MD LAB BODY FLUIDS AND STOOLS ORDERABLES Final Result Performing Organization Address [facility] Co de Phone Number [facility] [address] [employer] [employer] [place] [address] * Aerobic and anaerobic culture and gram stain Synovial fluid Knee, right (10/10/2024 10:48 AM CDT) Direct Specimen Exam Stain: Few polymorphonuclear leukocytes seen. No organisms seen. Comment:Testing performed by : [facility], [address] [place] [address]., [id number] Report Final Report: No growth ODALYS HORTA Comment:Testing performed by : [facility], [address] [place] [address]., [id number] Synovial fluid (Knee, right) 10/10/2024 10:48 AM CDT 10/10/2024 12:16 PM CDT Efrain Iglesias MD LAB MICROBIOLOGY - G ENERAL ORDERABLES Final Result Performing Organization Address [facility]/ZIP Co de Phone Number [facility] [address] [employer] [address] * Hepatitis C antibody (05/18/2020 12:15 PM CDT) Hep C Ab Nonreactive Nonreactive [facility] Comment:Antibodies to HCV no t detected. Does NOT exclude the possibility of recent exposure to HCV. Blood specimen (specimen) 05/18/2020 12:15 PM CDT 05/18/2020 12:33 PM CDT us Lance Lambert MD PhD LAB MICROBIOLOGY - GENER AL ORDERABLES Edited Result - Final [facility] Department [place] [address] from Last 3 Months or Most Recently Relevant to Health Maintenance Insurance [employer] PPO [employer] ACCESS CHOICE BLUE ACCESS CHOICE [place] [employer] [facility] Advance Directives For more information, please contact: [phone] * Full Code (Latest Code Status on File) Date Activated Date Inactivated Comments 03/28/2024 8:26 PM 04/02/2024 4:50 PM * Full Code Date Activated Date Inactivated Comments 02/01/2024 5:48 AM 02/09/2024 6:01 PM * Full Code Date Activated Date Inactivated Comments 01/07/2024 2:22 PM 01/08/2024 6:20 PM * Full Code Date Activated Date Inactivated Comments 08/03/2023 9:28 AM 08/04/2023 3:46 PM Care Teams Communications Supervisor Relationship Specialty Start Date End Date Lance Nielson MD PCP - General 07/01/17
--- OUTSIDE RECORDS SUMMARY | 2024-12-02 10:15 | XMS_ITS | Clinical Summary ---
Author Organization [employer] 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
--- OUTSIDE RECORDS SUMMARY | 2024-12-02 10:15 | XMS_ITS | Encounter Summary ---
Author Organization [facility] Address [address] [place] [address] Phone Care Team Providers Care Aging Box Hand Name Role Phone Lance Nielson MD Primary Care Provider [phone] [phone] Encounter Details Date Type Department Care Team (Latest Contact Info) Description 10/18/2024 Orders Only [facility] Scanning, Provider Social History Tobacco Use Types Packs/Day Years Used Date Smoking Tobacco: Former Cigarettes 1 33 1 2018 Smokeless Tobacco: Never Alcohol Use Standard Drinks/Week [...] on file Legal Sex Female 8:29 AM SHOW HOST/HOSTESS Gender Identity Not on file Sexual Orientation Straight 06/01/2018 7: 43 AM CDT 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
--- OUTSIDE RECORDS SUMMARY | 2024-12-02 10:15 | XMS_ITS | Encounter Summary ---
Author Organization [facility] Address 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
--- OUTSIDE RECORDS SUMMARY | 2024-12-02 10:15 | XMS_ITS | Encounter Summary ---
Author Organization [employer] Address 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
[2024-12-02 13:17] LABS: Alanine Aminotransferase 23 U/L (6-35); Albumin Level 4.3 g/dL (3.5-5.1); Alkaline Phosphatase 88 U/L (38-126); Anion Gap 7 mmol/L (4-12); Aspartate Amino Transferase 54 U/L (14-36); Bilirubin,Total 0.3 mg/dL (0.2-1.3); Blood Urea Nitrogen 13 mg/dL (7-17); Calcium 9.1 mg/dL (8.4-10.2); Carbon Dioxide 29 mmol/L (22-30); Chloride 104 mmol/L (98-107); Estimated Glomerular Filt Rate > 60; Glucose 88 mg/dL (65-110); Potassium 4.7 mmol/L (3.4-5.0); Sodium 140 mmol/L (137-145); Total Protein 7.1 g/dL (6.3-8.2)
[2024-12-02 13:45] LABS: Thyroid Stimulating Hormone 1.590 uIU/mL (0.465-4.680)
== END 2024-12-02 09:46 | disposition home or self-care (01) ==
LOC: ANHGOSHLAB 09:47
PROVIDERS: PCP Family Medicine; Visit Provider Family Medicine
DX: E03.9 Hypothyroidism, unspecified (principal); R74.8 Abnormal levels of other serum enzymes
CPT/HCPCS: 36415; 80053; 84443